=== PATIENT | male | born 1940 | race Caucasian/White ===

== ENCOUNTER 2016-11-12 08:19 | Day surgery (SDC) | payer MEDICARE ==
[~2016-11-12 08:19] MED LIST: Acetaminophen TAB* 325 MG PO PRN; Buffered Lidocaine 1% SYR 3ML* 3 ML/SYR SYRINGE INTRADERM ONE
[2016-11-12] MEDS ORDERED: Povidone Iodine 5% OPTH* 30 ML BTL ONE (09:24)
[2016-11-12] MEDS ORDERED: Flurbiprofen 0.03% OPTH.SOL* 2.5 ML BTL ONE (09:24)
[2016-11-12] MEDS ORDERED: acetaZOLAMIDE TAB* 250 MG ONE (09:24)
[2016-11-12] MEDS ORDERED: Proparacaine 0.5% OPHTH.SOL* 15 ML BTL ONE (09:24)
[2016-11-12] MEDS ORDERED: Neomycin/Polymy/Dex OPTH.SUSP* MAXITROL 0.1% 5 ML ONE (09:24)
[2016-11-12] MEDS ORDERED: Phenylephrine 2.5% OPTH.SOL* 2 ML BTL ONE (09:24)
[2016-11-12] MEDS ORDERED: Cyclopentolate 1% OPTH.SOL* 2 ML BTL ONE (09:24)
[2016-11-12] MEDS ORDERED: Lidocaine 1% MPF* 2 ML VIAL ONE (09:24)
[2016-11-12] MEDS ORDERED: Lidocaine 2% EPI 1:200000 MPF* 20 ML VIAL ONE (09:24)
[2016-11-12] MEDS ORDERED: Midazolam* 1 MG/ML 2 ML VIAL (2 MG) ONE ×2 (11:01→11:24)
[2016-11-12 11:50] VITALS: BP 129/62
--- NOTE | 2016-11-13 03:31 | OP ---
DATE OF OPERATION: 11/12/16 - [facility] DATE OF : 44 SURGEON: Hector Winter MD PREOPERATIVE DIAGNOSIS: Cataract, left eye. POSTOPERATIVE DIAGNOSIS: Cataract, left eye. OPERATIVE PROCEDURE: Phacoemulsification, left eye with IOL. DESCRIPTION OF PROCEDURE: The patient was brought to the operating room after being given 1/2% Alcaine with epinephrine drops in the preoperative area. The eye was prepped and draped in the usual sterile fashion. Sterile drape and eyelid speculum were placed. Again, topical 1/2% Alcaine with epinephrine was given. A paracentesis incision was made at the 3 o'clock position with the No.75 blade. Clear cornea incision 2.2 x 2.2-mm was created at the 6 o'clock position starting at the anterior limbus using the 2.2-mm keratome. The anterior chamber was irrigated with 0.4 mL of 1% non-preservative intracameral lidocaine and filled with DisCoVisc. A capsulorrhexis was completed using the cystotome and the Utrata forceps. Hydrodissection was performed with balanced salt solution. The lens nucleus was removed with the Phacoemulsification handpiece without incident. Cortex was removed with the irrigation-aspiration handpiece. The capsular bag was re-inflated using DisCoVisc and an SN60WF 23.5 implant was inserted with the shooter. Malyugin ring was used to dilate the pupil prior to capsulorrhexis and removed after insertion of the lens. Indication for complex cataract surgery iris abnormalities requiring pupil dilation device. The irrigation-aspiration handpiece was used to remove all residual DisCoVisc. The eye was refilled with balanced salt solution and the wound checked and found to be watertight. Topical Maxitrol drops were given. [id number]/[facility] #: [id number] [facility] CENTERMarizol
== END 2016-11-12 11:59 | disposition home or self-care (01) ==
LOC: OREAST 08:19
PROVIDERS: ATTEND Specialist
DX: H25.12 Age-related nuclear cataract, left eye (principal); Q13.2 Other congenital malformations of iris
CPT/HCPCS: A9270-GY; J2250; V2632

== ENCOUNTER 2016-11-19 07:41 | Day surgery (SDC) | payer MEDICARE ==
[~2016-11-19 07:41] MED LIST changes: +Cyclopentolate 1% OPTH.SOL* 2 ML BTL ONE; +Flurbiprofen 0.03% OPTH.SOL* 2.5 ML BTL ONE; +Lidocaine 1% MPF* 2 ML VIAL ONE; +Lidocaine 2% EPI 1:200000 MPF* 20 ML VIAL ONE; +Neomycin/Polymy/Dex OPTH.SUSP* MAXITROL 0.1% 5 ML ONE; +Phenylephrine 2.5% OPTH.SOL* 2 ML BTL ONE; +Povidone Iodine 5% OPTH* 30 ML BTL ONE; +Proparacaine 0.5% OPHTH.SOL* 15 ML BTL ONE; +acetaZOLAMIDE TAB* 250 MG ONE
[2016-11-19] MEDS ORDERED: Midazolam* 1 MG/ML 2 ML VIAL (2 MG) ONE (09:50)
[2016-11-19 10:46] VITALS: BP 120/64
--- NOTE | 2016-11-19 12:33 | OP ---
DATE OF OPERATION: 11/19/2016. DATE OF : 1940. SURGEON: Hector Winter M.D. PREOPERATIVE DIAGNOSIS: Cataract right eye. POSTOPERATIVE DIAGNOSIS: Cataract right eye. OPERATIVE PROCEDURE: Phacoemulsification right eye with IOL. PROCEDURE: The patient was brought to the operating room after being given 1/2% Alcaine with epinep hrine drops in the preoperative area. The eye was prepped and draped in the usual sterile fashion. Sterile drape and eyelid speculum were placed. Again, topical 1/2% Alcaine with epinephrine was gi norberto. A paracentesis incision was made at the 9 o'clock position with the No.75 blade. Clear cornea incision 2.2 x 2.2-mm was created at the 12 o'clock position starting at the anterior limbus using the 2.2-mm keratome. The anterior chamber was irrigated with 0.4 mL of 1% non-preservative intracam eral lidocaine and filled with DisCoVisc. A capsulorrhexis was completed using the cystotome and mirtha e Utrata forceps. Hydrodissection was performed with balanced salt solution. The lens nucleus was r emoved with the Phacoemulsification handpiece without incident. Cortex was removed with the irrigat ion-aspiration handpiece. The capsular bag was re-inflated using DisCoVisc and an SN60WF 23.5 Impla nt was inserted with the shooter. A Malyugin ring was used to dilate the pupil prior to capsulorrhe xis and removed after insertion of the lens. The irrigation-aspiration handpiece was used to remove all residual DisCoVisc. The eye was refilled with balanced salt solution and the wound checked and found to be watertight. Topical Maxitrol drops were given. Indication for complex cataract surgery: Iris abnormalities requiring pupil dilation device. [id number]/[facility] #: [id number]
== END 2016-11-19 10:42 | disposition home or self-care (01) ==
LOC: OREAST 07:41
PROVIDERS: ATTEND Specialist
DX: H25.11 Age-related nuclear cataract, right eye (principal); Q13.2 Other congenital malformations of iris; F17.290 Nicotine dependence, other tobacco product, uncomplicated; R56.9 Unspecified convulsions; I48.91 Unspecified atrial fibrillation
CPT/HCPCS: A9270-GY; J2250; V2632

== ENCOUNTER 2017-04-20 17:23 | Inpatient (IN) | payer MEDICARE ==
[2017-04-20] MEDS ORDERED: Cefepime(*) 2 GM in NS 0.9% 50 ML* 50 ML IVPB ONE (19:57)
[2017-04-20] MEDS ORDERED: metroNIDAZOLE IV 500 MG/100ML* 500 MG/100 ML BAG IVPB ONE (19:57)
[2017-04-20] MEDS ORDERED: NS 0.9% 1000 ML* 1,000 ML IV ONE (19:59)
[2017-04-20] MEDS ORDERED: Morphine INJ* 4 MG/ML 1 ML SYRINGE IV ONE (19:59)
[2017-04-20] MEDS ORDERED: Vancomycin(*) 1,000 MG VIAL IVPB SCH (20:00)
[2017-04-20] MEDS ORDERED: NS 0.9% 50 ML* 100 ML ONE (20:15)
[2017-04-20 20:51] LABS: Hematocrit 41 % (42-52); Hemoglobin 13.7 g/dl (14.0-18.0); Mean Corpuscular HGB Conc 33 g/dl (31-36); Mean Corpuscular Hemoglobin 31 pg (27-31); Mean Corpuscular Volume 92 fL (80-94); Mean Platelet Volume 7 um3 (7.4-10.4); Red Blood Count 4.47 10^6/ul (4.0-5.4); Red Cell Distribution Width 14 % (10.5-15); White Blood Count 12.3 10^3/ul (3.5-10.8)
[2017-04-20 20:58] LABS: Albumin 3.8 g/dL (3.2-5.2); BUN/Creatinine Ratio 29.6 (8-20); Calcium 9.1 mg/dL (8.6-10.3); EGFR African American 139.5 (>60); EGFR Non-African American 108.4 (>60); Globulin 3.2 g/dL (2-4); Total Bilirubin 0.3 mg/dL (0.2-1.0)
[2017-04-20] MEDS ORDERED: Vancomycin(*) 2,000 MG in NS 0.9% 500 ML BAG* 500 ML IVPB ONE (21:00)
[2017-04-20] MEDS ORDERED: NS 0.9% 500 ML BAG* 500 ML ONE (21:05)
--- NOTE | 2017-04-20 21:34 | RAD ---
HISTORY: Right lower extremity pain and edema TECHNIQUE: Multiple transverse and longitudinal ultrasound images were obtained of the veins of the right lower extremity using grayscale, color Doppler, and spectral Doppler imaging with and without compression and with augmentation. FINDINGS: VEINS: The common femoral vein, deep femoral vein, femoral vein and popliteal vein are compressible throughout their course, with normal flow on color Doppler imaging and normal response to augmentation on spectral Doppler imaging. The right peroneal vein could not be visualized. SOFT TISSUES: Subcutaneous edema is evident overlying the right calf. IMPRESSION: Subcutaneous edema overlying the right calf without femoral-popliteal deep vein thrombosis.
[2017-04-20] MEDS ORDERED: Ondansetron INJ* 2 MG/ML VIAL IV PRN (21:48)
[2017-04-20] MEDS ORDERED: Al Hydrox/Mg Hydrox/Simet LIQ* 30 ML UDC PO PRN (21:48)
[2017-04-20 22:00] LABS: Erythrocyte Sed Rate 26 mm/Hr (0-40)
[2017-04-20] MEDS ORDERED: Vancomycin(*) 0 MG in NS 0.9% 250 ML* 250 ML IVPB SCH (22:00)
[2017-04-20] MEDS ORDERED: Vancomycin per Pharmacy* NOTE FOLLOW UP SCH (22:00)
[2017-04-20] MEDS ORDERED: Iohexol 350* (CONTRAST) 500 ML MDV IV ONE (22:06)
[2017-04-20] MEDS: Morphine INJ* 2 MG/ML 1 ML SYRINGE IV PRN (23:03)
[2017-04-20] MEDS: Heparin VIAL(*) 5000 UNITS/ML VIAL (FIVE THOUSAND) SUBCUT SCH (23:07)
--- NOTE | 2017-04-20 23:17 | ED ---
Garcia Bowman,Lily, scribed for Edy Rutledge MD on 04/20/17 at 2002 . Lower Extremity - HPI Summary HPI Summary: This 76 y/o male presents to ED for acute on chronic swelling and burning/sharp pain of BLE since 2 weeks ago. Positive open wound with drainage. Pt states that his leg was dress with calcium alginate with silver, optilock, which irritated his leg skin and caused the open wound. He was prescribed levaquin. Pt is seen ambulating with cane. PMHx includes known blood clot at RLE, chronic leg swelling, left knee replacement, and fight femur fibrosarcoma s/p surgical repair. Pt is a wound clinic pt. Pt was silver Negative fever, chills, or leg weakness. - History of Current Complaint Chief Complaint: EDExtremityLower Stated Complaint: SENT FROM WOUND CENTER Time Seen by Provider: 04/20/17 19:42 Hx Obtained From: Patient, Medical Records Mechanism Of Injury: Unknown Pain Intensity: 9 Pain Scale Used: 0-10 Numeric Associated Signs And Symptoms: Positive: Swelling, Redness - Allergies/Home Medications Allergies/Adverse Reactions: Allergies Allergy/AdvReac Type Severity Reaction Status Date / Time No Known Allergies Allergy Verified 04/20/17 17:27 PMH/Surg Hx/FS Hx/Imm Hx Endocrine/Hematology History: Reports: Hx Anticoagulant Therapy, Hx Blood Transfusions Denies: Hx Diabetes, Hx Thyroid Disease, Hx Anemia, Hx Unexplained Bleeding Cardiovascular History: Denies: Hx Aneurysm, Hx Angina, Hx Angioplasty, Hx Auto Implanted Cardiovert Defib, Hx Cardiac Arrest, Hx Cardiomegaly, Hx Congenital Heart Disease, Hx Coronary Artery Disease, Hx Hypercholesterolemia, Hx Hypertension, Hx Myocardial Infarction, Hx Pacemaker/ICD, Hx Peripheral Vascular Disease, Hx Rheumatic Fever, Hx Syncope, Hx Valvular Heart Disease Respiratory History: Reports: Hx Pneumonia Denies: Hx Asthma, Hx Chronic Obstructive Pulmonary Disease (COPD), Hx Sleep Apnea GI History: Reports: Hx Diverticulosis - sigmoid, Hx Gastroesophageal Reflux Disease, Hx Hiatal Hernia, Other GI Disorders - duodenal ulcer, Baires's esophagus Denies: Hx Cirrhosis, Hx Crohn's Disease, Hx Gall Bladder Disease History: Reports: Other Problems/Disorders - prostate CA Denies: Hx Renal Disease Musculoskeletal History: Reports: Hx Arthritis, Hx Back Problems Denies: Hx Congenital Bone Abnormalities, Hx Fibromyalgia, Hx Gout, Hx Orthopedic Injury Sensory History: Reports: Hx Contacts or Glasses Denies: Hx Deafness, Hx Hearing Aid, Hx Hearing Problem, Other Sensory Impairments Opthamlomology History: Reports: Hx Contacts or Glasses Denies: Other Sensory Impairments Neurological History: Reports: Hx Seizures Denies: Hx Dementia, Hx Developmental Delay, Hx Headaches, Hx Migraine, Hx Spinal Cord Injury, Hx Transient Ischemic Attacks (TIA), Other Neuro Impairments /Disorders Psychiatric History: Denies: Hx Substance Abuse - Cancer History Cancer Type, 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 prostate CA Hx Chemotherapy: Yes - Surgical History Surgery Procedure, Year, and Place: LT KNEE REPLACEMENT 12/06/2012 HX OF BOTH HIPS REPAIR/RT FEMUR FIBROSARCOMA SURGERY, colonoscopy, right hydrocele, esophageal Hx Anesthesia Reactions: Yes - 2 x had reaction resulting in hiccups Infectious Disease History: No Infectious Disease History: Denies: Hx Hepatitis, Hx Human Immunodeficiency Virus (HIV), Hx Shingles, Hx Tuberculosis, Traveled Outside the [place] in Last 30 Days - Family History Known Family History: Positive: Other - Seizures Negative: Cardiac Disease - no FHx of CAD - Social History Alcohol Use: Rare Alcohol Amount: 1-2 beers Substance Use Type: Reports: None Smoking Status (MU): Current Some Day Smoker Amount Used/How Often: one cigar once a month Review of Systems Negative: Fever, Chills Negative: Sore Throat, Ear Ache Negative: Cough Positive: Edema - BLE, Other - BLE ankle pain All Other Systems Reviewed And Are Negative: Yes Physical Exam - Summary Physical Exam Summary: The patient is well-nourished in no acute distress and in no acute pain. HEENT: The head is normocephalic and atraumatic. The pupils are equal and reactive. The conjunctivae are clear and without drainage. Nares are patent and without drainage. Mouth reveals moist mucous membranes and the throat is without erythema and exudate. The external ears are intact. The ear canals are patent and without drainage. The tympanic membranes are intact. Neck is supple with full range of motion and non-tender. There are no carotid bruits. There is no neck vein distension. Respiratory: Chest is non-tender. Lungs are clear to auscultation and breath sounds are symmetrical and equal. Cardiovascular: Hear is regular rate and rhythm. There is no murmur or rub auscultated. There is no peripheral edema and pulses are symmetrical and equal. Abdomen: The abdomen is soft, obese, and non-tender. There are normal bowel sounds heard in all four quadrants and there is no organomegaly palpated. Musculoskeletal: Positive marked edema at bilat feet, right more notable than left. Positive open wound that is almost circumferential, covers major tibial calf area below knee. Positive serosanguinous drainage. Marked erythema. Good intact pulse DP. Neurological: Patient is alert and oriented to person, place and time. The patient has symmetrical motor strength in all four extremities. Cranial nerves are grossly intact. Deep tendon reflexes are symmetrical and equal in all four extremities. No foot drop Psychiatric: The patient has an appropriate affect and does not exhibit any anxiety or depression. Triage Information Reviewed: Yes Vital Signs On Initial Exam: Initial Vitals Temp Pulse Resp BP Pulse Ox 97 F 93 16 141/65 96 04/20/17 17:27 04/20/17 17:27 04/20/17 17:27 04/20/17 17:27 04/20/17 17:27 Vital Signs Reviewed: Yes Diagnostics - Vital Signs Vital Signs Temp Pulse Resp BP Pulse Ox 04/20/17 18:38 98 F 93 16 145/65 98 04/20/17 17:27 97 F 93 16 141/65 96 - Laboratory Lab Results: Lab Results 04/20/17 04/20/17 04/20/17 Range/Units 20:30 20:30 20:30 WBC 12.3 H (3.5-10.8) 10^3/ul RBC 4.47 (4.0-5.4) 10^6/ul Hgb 13.7 L (14.0-18.0) g/dl Hct 41 L (42-52) % MCV 92 (80-94) fL MCH 31 (27-31) pg MCHC 33 (31-36) g/dl RDW 14 (10.5-15) % Plt Count 273 (150-450) 10^3/ul MPV 7 L (7.4-10.4) um3 Neut % (Auto) 70.2 (38-83) % Lymph % (Auto) 17.6 L (25-47) % Sebastian % (Auto) 10.2 H (1-9) % Eos % (Auto) 1.4 (0-6) % Baso % (Auto) 0.6 (0-2) % Absolute Neuts (auto) 8.6 H (1.5-7.7) 10^3/ul Absolute Lymphs (auto) 2.2 (1.0-4.8) 10^3/ul Absolute Monos (auto) 1.2 H (0-0.8) 10^3/ul Absolute Eos (auto) 0.2 (0-0.6) 10^3/ul Absolute Basos (auto) 0.1 (0-0.2) 10^3/ul Absolute Nucleated RBC 0.01 10^3/ul Nucleated RBC % 0.1 ESR 26 (0-40) mm/Hr INR (Anticoag Therapy) 0.94 (0.89-1.11) Sodium 134 (133-145) mmol/L Potassium 4.0 (3.5-5.0) mmol/L Chloride 102 (101-111) mmol/L Carbon Dioxide 24 (22-32) mmol/L Anion Gap 8 (2-11) mmol/L BUN 21 (6-24) mg/dL Creatinine 0.71 (0.67-1.17) mg/dL Est GFR ( Amer) 139.5 (>60) Est GFR (Non-Af Amer) 108.4 (>60) BUN/Creatinine Ratio 29.6 H (8-20) Glucose 99 (70-100) mg/dL Lactic Acid (0.5-2.0) mmol/L Calcium 9.1 (8.6-10.3) mg/dL Total Bilirubin 0.30 (0.2-1.0) mg/dL AST 14 (13-39) U/L ALT 10 (7-52) U/L Alkaline Phosphatase 159 H (34-104) U/L Total Creatine Kinase 104 (10-223) U/L Total Protein 7.0 (6.4-8.9) g/dL Albumin 3.8 (3.2-5.2) g/dL Globulin 3.2 (2-4) g/dL Albumin/Globulin Ratio 1.2 (1-3) 04/20/17 Range/Units 20:30 WBC (3.5-10.8) 10^3/ul RBC (4.0-5.4) 10^6/ul Hgb (14.0-18.0) g/dl Hct (42-52) % MCV (80-94) fL MCH (27-31) pg MCHC (31-36) g/dl RDW (10.5-15) % Plt Count (150-450) 10^3/ul MPV (7.4-10.4) um3 Neut % (Auto) (38-83) % Lymph % (Auto) (25-47) % Sebastian % (Auto) (1-9) % Eos % (Auto) (0-6) % Baso % (Auto) (0-2) % Absolute Neuts (auto) (1.5-7.7) 10^3/ul Absolute Lymphs (auto) (1.0-4.8) 10^3/ul Absolute Monos (auto) (0-0.8) 10^3/ul Absolute Eos (auto) (0-0.6) 10^3/ul Absolute Basos (auto) (0-0.2) 10^3/ul Absolute Nucleated RBC 10^3/ul Nucleated RBC % ESR (0-40) mm/Hr INR (Anticoag Therapy) (0.89-1.11) Sodium (133-145) mmol/L Potassium (3.5-5.0) mmol/L Chloride (101-111) mmol/L Carbon Dioxide (22-32) mmol/L Anion Gap (2-11) mmol/L BUN (6-24) mg/dL Creatinine (0.67-1.17) mg/dL Est GFR ( Amer) (>60) Est GFR (Non-Af Amer) (>60) BUN/Creatinine Ratio (8-20) Glucose (70-100) mg/dL Lactic Acid 0.7 (0.5-2.0) mmol/L Calcium (8.6-10.3) mg/dL Total Bilirubin (0.2-1.0) mg/dL AST (13-39) U/L ALT (7-52) U/L Alkaline Phosphatase (34-104) U/L Total Creatine Kinase (10-223) U/L Total Protein (6.4-8.9) g/dL Albumin (3.2-5.2) g/dL Globulin (2-4) g/dL Albumin/Globulin Ratio (1-3) Result Diagrams: 04/20/17 20:30 04/20/17 20:30 Lab Statement: Any lab studies that have been ordered have been reviewed, and results considered in the medical decision making process. - Additional Comments Diagnostic Additional Comments: Venous Doppler Study -- Subcutaneous edema overlying the right calf without femoral-popliteal deep vein thrombosis. Lower Extremity Course/Dx - Course Assessment/Plan: This 76 y/o male presents to ED for persistent BLE swelling and pain since 2 weeks ago. Pt is a wound clinic patient, and states that calcium alginate with silver, optilock dressing he was given irritated his leg skin. Positive open wound with serosanguinous drainage. Pt is given morphine injection for pain control. Plan of care is discussd with Dr. León, hospitalist event specialist food demonstrator, who is agreeable to pt's admission. - Diagnoses Differential Diagnosis/HQI/PQRI: Positive: Cellulitis, DVT, Infection, Other - abscess, Provider Diagnoses: Cellulitis, Infected stasis ulcer of right lower extremity Provider Diagnoses: (Ruled Out): Cellulitis and abscess of right leg - Physician Notifications Discussed Care Of Patient With: Lakesha León Time Discussed With Above Provider: 20:29 Instructed by Provider To: Admit As Inpatient Discharge - Discharge Plan Condition: Stable Disposition: ADMITTED TO [facility] The documentation as recorded by the Garcia ibrahim Soohyun accurately reflects the service I personally performed and the decisions made by me, Edy Rutledeg MD.
[2017-04-20] MEDS: oxyCODONE/Acetamin 5/325 MG* TAB PO PRN (23:28)
[2017-04-20] MEDS: Docusate CAP* 100 MG PO PRN (23:28)
--- NOTE | 2017-04-21 00:04 | HP ---
CC: Gamal Mcdonald MD * HISTORY AND PHYSICAL: DATE OF ADMISSION: 04/20/17 TIME OF EVALUATION: 2200. PRIMARY CARE PHYSICIAN: Gamal Mcdonald MD. CHIEF COMPLAINT: Right lower extremity pain, redness and swelling. HISTORY OF PRESENT ILLNESS: This is a 76-year-old male with a past medical history of chronic lymphedema with chronic wounds followed at the wound care center, who was told by the wound care center to go to the emergency room for worsening wound redness and swelling. The patient states he began having difficulty with his right lower extremity; however, on the end of March he was started initially on doxycycline he believes, although he is not clear. He started that twice a day. His symptoms did not improve. I have a note when he returned back to wound care on the and at that time they switched him over to p.o. Levaquin with wound care regimen. The patient states he has been having difficulty with the topical ointments as they give him lot of pain. He has a significant more amount of pain, redness and swelling over his right lower leg and the posterior surface and the medial surface. He has also been unable to elevate his legs. It is too painful to elevate them and his recliner also broke. He denies any fevers. He has had a good appetite. No nausea, vomiting diarrhea. No abdominal pain, no chest pain, no shortness of breath. Otherwise, remainder of review of systems negative. The patient had labs and imaging. He was given a liter of fluid, metronidazole , cefepime and vancomycin and referred to the hospitalist service for further evaluation. PAST MEDICAL HISTORY: 1. 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 2. History of seizure disorder. 3. History of prostate cancer. 4. History of hip and knee arthroplasties. 5. History of cardiac surgery. 6. History of cellulitis admission in May 2016. 7. Venous hypertension. 8. History of paroxysmal atrial fibrillation, not on anticoagulation. 9. History of chronic lower extremity wounds, followed at the Wound Care Center. 10. Status post hydrocele removal. MEDICATIONS: 1. Dilantin 500 mg q.a.m. 2. Lasix 40 mg q.a.m. 3. Aleve as needed. 4. Aspirin 325 mg in the morning. ALLERGIES: No known drug allergies. FAMILY HISTORY: Reviewed and noncontributory. SOCIAL HISTORY: The patient lives alone. He just recently lost his partner back in February 2017 who was residing at [facility]. His healthcare proxy is the son, Hector Tucker. He does smoke cigars intermittently and occasional alcohol use. No illicit drug use. CODE STATUS: Full code. REVIEW OF SYSTEMS: A 14-point review of systems with the positives and pertinent negatives as mentioned in the HPI, otherwise negative. PHYSICAL EXAMINATION GENERAL: In no acute distress, resting comfortably. VITAL SIGNS: Temp 98, pulse rate 93, respiratory rate 16, oxygen saturation 98 % on room air, blood pressure 145/65. HEENT: Head normocephalic. Pupils are equal and reactive, anicteric. Oropharynx: Mucous membranes are moist. No erythema or exudate. NECK: Supple. No lymphadenopathy. RESPIRATORY: Diminished breath sounds. No wheezes, rhonchi or rales. CARDIAC: Regular rate and rhythm. No murmurs, rubs or gallops. ABDOMEN: Soft, morbidly obese. Nontender. EXTREMITIES: The patient with bilateral lower extremity edema, worse on the right. He has an ulcerated open wound on the posterior surface of his right lower extremity and a more granulated ulcerated lesion on the medial surface of his right lower extremity. Significant amount of redness and swelling. Both extremities are firm. Unable to appreciate any pulses. Pain with palpation. NEUROLOGIC: Alert and oriented x3. No focal neurologic deficits. LABORATORY DATA/DIAGNOSTIC STUDIES: White count 12.3, hemoglobin 13.7, hematocrit 41, platelets 273,000. Sed rate 26. Sodium 134, potassium 4, chloride 102, bicarb 24, BUN 21, creatinine 0.71. Radiographic data: Subcutaneous edema overlying the right calf without femoral popliteal deep vein thrombosis. The patient recently had an extremity arterial study on 04/17/17 that showed no definitive findings suggestive of arterial insufficiency, although the TED is especially elevated and measured at the right calf and right posterior tibial artery, especially advanced calcified atherosclerosis. Consider a CTA or aorta with runoff. ASSESSMENT: This is a 76-year-old male with a past medical history of chronic lymphedema, chronic wounds who presented to the emergency room from wound care for worsening redness, swelling and ulcerations on his right lower extremity despite being on p.o. antibiotics. PROBLEMS: 1. Cellulitis. Assessment: The patient on 3 days of p.o. Levaquin. His culture back on the 4th showed pseudomonas, sensitive to Levaquin. I suspect part of his issue with poor wound healing is noncompliance with the topical agents and not being able to elevate his legs. There also could be some arterial insufficiency as noted on his TED from the 4th. Our plan, we will will admit him to [address] [place] [address]. We will continue on cefepime, Flagyl and vancomycin, put in an ID consult for further antibiotic management. We will consult wound care. We will continue his regimen, keeping the legs elevated, calcium alginate with silver to cover the weepy areas, OptiLock roll to conforming gauze, mild compression wraps to both legs and continue with pain control. 2. Chronic medical problem, seizure disorder, continue his Dilantin. 3. Chronic lymphedema, continue his Lasix. 4. Diet, continue him on a regular diet. 5. DVT prophylaxis, the patient scores high risk. We have placed him on heparin subcu t.i.d. 6. Code status: Full code. TIME SPENT: Greater than 70 minutes was spent doing the history and physical, more than half the time was spent in direct patient contact. [id number]/[facility] #: [id number] SAMRA
[2017-04-21] MEDS: Morphine INJ* 2 MG/ML 1 ML SYRINGE IV PRN ×4 (03:17→19:45)
[2017-04-21] MEDS: oxyCODONE/Acetamin 5/325 MG* TAB PO PRN ×3 (05:14→21:04)
[2017-04-21] MEDS: Heparin VIAL(*) 5000 UNITS/ML VIAL (FIVE THOUSAND) SUBCUT SCH ×3 (05:57→21:27)
[2017-04-21] MEDS: Vancomycin(*) 1,250 MG in NS 0.9% 250 ML* 250 ML IVPB SCH ×2 (05:58→14:27)
[2017-04-21] MEDS ORDERED: Iohexol 350* (CONTRAST) 500 ML MDV IV SCH (07:43)
[2017-04-21] MEDS: Aspirin TAB* 325 MG PO SCH (08:08)
[2017-04-21] MEDS: Phenytoin CAP(*) 100 MG CAP.ER PO SCH (08:08)
[2017-04-21] MEDS: Furosemide TAB* 40 MG PO SCH (08:08)
--- NOTE | 2017-04-21 08:23 | PN ---
Subjective Date of Service: 04/21/17 Interval History: Mr. Elizabeth is a 76 yo gentleman who presented to the wound clinic on 04/20 for evaluation of his chronic wounds and was referred to the ED with concern for worsening wound redness and swelling. The patient reports that he has been having difficulty with his RLE and was started on levofloxacin (per pt and records). Mr. Elizabeth reports he recently was changed to the calcium alginate with silver for his wound dressings, which was sent to him in the mail, but he has not been using it because it causes "burning. He states that he has been sitting a lot in the past few months, as [facility] . He has difficulty elevating his legs at home. Currently, he denies fever/chills, CP, SOB, abd pain. Reports his legs are starting to feel somewhat better after being on antibiotics. Patient is currently refusing any dressings to his legs until wound care sees him. Family History: Unchanged from Admission Social History: Unchanged from Admission Past Medical History: Unchanged from Admission Objective Active Medications: Acetaminophen (Tylenol Tab*) 650 mg PO Q4H PRN PRN Reason: FEVER/PAIN Al Hydrox/Mg Hydrox/Simethicone (Maalox Plus*) 30 ml PO Q6H PRN PRN Reason: INDIGESTION Aspirin (Aspirin Tab*) 325 mg PO DAILY [facility] Last Admin: 04/21/17 08:08 Dose: 325 mg Docusate Sodium (Colace Cap*) 100 mg PO BID PRN PRN Reason: CONSTIPATION Last Admin: 04/20/17 23:28 Dose: 100 mg Furosemide (Lasix Tab*) 40 mg PO DAILY [facility] Last Admin: 04/21/17 08:08 Dose: 40 mg Heparin Sodium (Porcine) (Heparin Vial(*)) 5,000 units SUBCUT Q8HR [facility] Last Admin: 04/21/17 05:57 Dose: 5,000 units Cefepime HCl 2 gm/ Sodium (Chloride) 50 mls @ 100 mls/hr IVPB Q12H [facility] Metronidazole/Sodium Chloride (Flagyl 500 Mg Ivpb*) 500 mg in 100 mls @ 100 mls /hr IVPB Q12HR [facility] Vancomycin HCl 1,250 mg/ (Sodium Chloride) 250 mls @ 166.667 mls/hr IVPB Q8H [facility] Last Admin: 04/21/17 05:58 Dose: 166.667 mls/hr Iohexol (Omnipaque 350 (Contrast)-) 125 ml IV ONCE [facility] Stop: 04/23/17 07:42 Morphine Sulfate (Morphine Inj (Syringe)*) 2 mg IV Q4H PRN PRN Reason: PAIN Last Admin: 04/21/17 03:17 Dose: 2 mg Ondansetron HCl (Zofran Inj*) 4 mg IV Q4H PRN PRN Reason: NAUSEA/VOMITING Oxycodone/Acetaminophen (Percocet 5/325 Tab*) 1 tab PO Q4H PRN PRN Reason: Pain Last Admin: 04/21/17 05:14 Dose: 1 tab Pharmacy Consult (Vancomycin Per Pharmacy*) 1 note FOLLOW UP .VANC PER PHARMACY [facility] Pharmacy Profile Note (Vancomycin Trough Check) 1 note FOLLOW UP ONCE ONE Stop: 04/22/17 06:01 Phenytoin Sodium (Dilantin Cap(*)) 500 mg PO DAILY [facility] Last Admin: 04/21/17 08:08 Dose: 500 mg Senna (Senokot Tab*) 1 tab PO BID PRN PRN Reason: CONSTIPATION Vital Signs 04/20/17 04/20/17 04/20/17 22:45 23:03 23:05 Temperature 98.0 F 98.0 F Pulse Rate 88 88 Respiratory 18 19 18 Rate Blood Pressure 130/68 130/68 (mmHg) O2 Sat by Pulse 99 99 Oximetry 04/20/17 04/21/17 04/21/17 23:28 00:03 01:28 Temperature Pulse Rate Respiratory 18 18 17 Rate Blood Pressure (mmHg) O2 Sat by Pulse Oximetry 04/21/17 04/21/17 04/21/17 03:17 03:32 04:17 Temperature 97.7 F Pulse Rate 80 Respiratory 18 16 22 Rate Blood Pressure 113/64 (mmHg) O2 Sat by Pulse 98 Oximetry 04/21/17 04/21/17 04/21/17 05:14 07:14 07:32 Temperature 97.9 F Pulse Rate 73 Respiratory 22 18 18 Rate Blood Pressure 126/59 (mmHg) O2 Sat by Pulse 98 Oximetry Oxygen Devices in Use Now: None Appearance: Male patient, OOB to chair, NAD Eyes: No Scleral Icterus Ears/Nose/Mouth/Throat: Clear Oropharnyx, Mucous Membranes Moist Neck: NL Appearance and Movements; NL JVP Respiratory: Symmetrical Chest Expansion and Respiratory Effort, Clear to Auscultation Cardiovascular: NL Sounds; No Murmurs; No JVD, RRR Abdominal: NL Sounds; No Tenderness; No Distention Extremities: - - BLE edema R>L with ulcerations and open wounds to posterior and medial aspects of the RLE Neurological: Alert and Oriented x 3, NL Muscle Strength and Tone Lines/Tubes/Other Access: Clean, Dry and Intact Peripheral IV Nutrition: Taking PO's Result Diagrams: 04/20/17 20:30 04/20/17 20:30 Additional Lab and Data: Lab Results 04/20/17 04/20/17 04/20/17 Range/Units 20:30 20:30 20:30 WBC 12.3 H (3.5-10.8) 10^3/ul RBC 4.47 (4.0-5.4) 10^6/ul Hgb 13.7 L (14.0-18.0) g/dl Hct 41 L (42-52) % MCV 92 (80-94) fL MCH 31 (27-31) pg MCHC 33 (31-36) g/dl RDW 14 (10.5-15) % Plt Count 273 (150-450) 10^3/ul MPV 7 L (7.4-10.4) um3 Neut % (Auto) 70.2 (38-83) % Lymph % (Auto) 17.6 L (25-47) % Graham % (Auto) 10.2 H (1-9) % Eos % (Auto) 1.4 (0-6) % Baso % (Auto) 0.6 (0-2) % Absolute Neuts (auto) 8.6 H (1.5-7.7) 10^3/ul Absolute Lymphs (auto) 2.2 (1.0-4.8) 10^3/ul Absolute Monos (auto) 1.2 H (0-0.8) 10^3/ul Absolute Eos (auto) 0.2 (0-0.6) 10^3/ul Absolute Basos (auto) 0.1 (0-0.2) 10^3/ul Absolute Nucleated RBC 0.01 10^3/ul Nucleated RBC % 0.1 ESR 26 (0-40) mm/Hr INR (Anticoag Therapy) 0.94 (0.89-1.11) Sodium 134 (133-145) mmol/L Potassium 4.0 (3.5-5.0) mmol/L Chloride 102 (101-111) mmol/L Carbon Dioxide 24 (22-32) mmol/L Anion Gap 8 (2-11) mmol/L BUN 21 (6-24) mg/dL Creatinine 0.71 (0.67-1.17) mg/dL Est GFR ( Amer) 139.5 (>60) Est GFR (Non-Af Amer) 108.4 (>60) BUN/Creatinine Ratio 29.6 H (8-20) Glucose 99 (70-100) mg/dL Lactic Acid (0.5-2.0) mmol/L Calcium 9.1 (8.6-10.3) mg/dL Total Bilirubin 0.30 (0.2-1.0) mg/dL AST 14 (13-39) U/L ALT 10 (7-52) U/L Alkaline Phosphatase 159 H (34-104) U/L Total Creatine Kinase 104 (10-223) U/L Total Protein 7.0 (6.4-8.9) g/dL Albumin 3.8 (3.2-5.2) g/dL Globulin 3.2 (2-4) g/dL Albumin/Globulin Ratio 1.2 (1-3) /03/30 Range/Units 20:30 WBC (3.5-10.8) 10^3/ul RBC (4.0-5.4) 10^6/ul Hgb (14.0-18.0) g/dl Hct (42-52) % MCV (80-94) fL MCH (27-31) pg MCHC (31-36) g/dl RDW (10.5-15) % Plt Count (150-450) 10^3/ul MPV (7.4-10.4) um3 Neut % (Auto) (38-83) % Lymph % (Auto) (25-47) % Graham % (Auto) (1-9) % Eos % (Auto) (0-6) % Baso % (Auto) (0-2) % Absolute Neuts (auto) (1.5-7.7) 10^3/ul Absolute Lymphs (auto) (1.0-4.8) 10^3/ul Absolute Monos (auto) (0-0.8) 10^3/ul Absolute Eos (auto) (0-0.6) 10^3/ul Absolute Basos (auto) (0-0.2) 10^3/ul Absolute Nucleated RBC 10^3/ul Nucleated RBC % ESR (0-40) mm/Hr INR (Anticoag Therapy) (0.89-1.11) Sodium (133-145) mmol/L Potassium (3.5-5.0) mmol/L Chloride (101-111) mmol/L Carbon Dioxide (22-32) mmol/L Anion Gap (2-11) mmol/L BUN (6-24) mg/dL Creatinine (0.67-1.17) mg/dL Est GFR ( Amer) (>60) Est GFR (Non-Af Amer) (>60) BUN/Creatinine Ratio (8-20) Glucose (70-100) mg/dL Lactic Acid 0.7 (0.5-2.0) mmol/L Calcium (8.6-10.3) mg/dL Total Bilirubin (0.2-1.0) mg/dL AST (13-39) U/L ALT (7-52) U/L Alkaline Phosphatase (34-104) U/L Total Creatine Kinase (10-223) U/L Total Protein (6.4-8.9) g/dL Albumin (3.2-5.2) g/dL Globulin (2-4) g/dL Albumin/Globulin Ratio (1-3) Diagnostic Imaging: CTA Abd/Aorta and Runoff: IMPRESSION: NO CT EVIDENCE OF SIGNIFICANT CALCIFIED PLAQUE OR HEMODYNAMICALLY SIGNIFICANT STENOSIS. DIFFUSE EDEMATOUS CHANGES IN LOWER EXTREMITIES SUGGEST VENOUS INSUFFICIENCY. Venous Doppler RLE: IMPRESSION: Subcutaneous edema overlying the right calf without femoral-popliteal deep vein thrombosis. Assess/Plan/Problems-Billing Assessment: Mr. Elizabeth is a 76 yo male with a PMH significant for chronic lymphedema ( secondary to excision of fibrosarcoma), chronic wounds, HTN, seizure disorder, and PAF who presented to the emergency room from wound care on 04/20/17 for worsening redness, swelling and ulcerations on his right lower extremity, despite being on p.o. antibiotics. - Patient Problems (1) Cellulitis of right leg Code(s): L03.115 - CELLULITIS OF RIGHT LOWER LIMB Comment: With worsening erythema, edema, and ulcerations Patient has been on PO levofloxacin as an outpatient and follows with wound clinic Wound cx from 04/17 grew pseudomonas, sensitive to levofloxacin. Continue cefepime, metronidazole, vancomycin. Appreciate ID and wound care consults Continue current dressing changes with calcium alginate with silver and compression wraps. Suspect poor wound healing secondary to treatment nonadherence with topical agents and inability to keep BLE elevated CTA with runoff pending (2) Atrial fibrillation Code(s): I48.91 - UNSPECIFIED ATRIAL FIBRILLATION Comment: Currently in SR Paroxysmal afib Not on anticoagulation (3) Seizure disorder Code(s): G40.909 - EPILEPSY, UNSP, NOT INTRACTABLE, WITHOUT STATUS EPILEPTICUS Comment: Continue phenytoin. 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 Anticipate LOS>2 days. Plan for dc to home when medically stable.
[2017-04-21] MEDS ORDERED: metroNIDAZOLE IV 500 MG/100ML* 500 MG/100 ML BAG IVPB SCH (09:00)
--- NOTE | 2017-04-21 09:20 | RAD ---
INDICATION: Evaluate for peripheral vascular disease. Evaluate for calcified vessels. Probable venous insufficiency on the basis of noninvasive testing. COMPARISON: Noninvasive examination April 17, 2017; CT abdomen pelvis September 30, 2011. There are multiple calcified gallstones. CT April 22, 2006 TECHNIQUE: Axial source images were acquired utilizing CT angiographic technique with injection of 125 mL Omnipaque 350. Coronal and sagittal reconstructed images were acquired. 3-D volume rendered images were obtained. FINDINGS: Aorta: The diameter of the abdominal aorta from the diaphragmatic hiatus through the aortic bifurcation is normal. There is no evidence of aneurysm. There are no findings of dissection. There is no significant atherosclerotic plaque formation. Visceral branches: There are single renal arteries bilaterally which appear widely patent. The celiac axis, superior mesenteric artery, and inferior mesenteric artery are widely patent. Iliac arteries: The common and external iliac arteries are widely patent bilaterally. There is no significant calcific plaque. Right lower extremity: The profunda femoris artery, common femoral artery, superficial femoral artery, popliteal artery, and trifurcation vessels are widely patent with three-vessel runoff to the right foot. There is no significant calcific plaque. There is mildly limited evaluation of short segments of the common femoral artery and the popliteal artery due to the presence of hip and knee prostheses. Left lower extremity: The profunda femoris artery, common femoral artery, superficial femoral artery, popliteal artery, and trifurcation vessels are widely patent with three-vessel runoff to the left foot. There is no significant calcific plaque. There is mild limited evaluation of short segments of the common femoral and up to artery due to the presence of hip and knee prostheses. Other: Source images show a low-density left hepatic lesion, likely a cyst, unchanged. There are left-sided parapelvic cysts, unchanged. There is a fat-containing periumbilical hernia, unchanged. There are extensive diverticula of the sigmoid colon. There is bilateral hip and bilateral knee arthroplasty. There is a large amount of dependent edema below the level of knee suggesting venous insufficiency, less likely diffuse bilateral stenotic process. IMPRESSION: NO CT EVIDENCE OF SIGNIFICANT CALCIFIED PLAQUE OR HEMODYNAMICALLY SIGNIFICANT STENOSIS. DIFFUSE EDEMATOUS CHANGES IN LOWER EXTREMITIES SUGGEST VENOUS INSUFFICIENCY.
[2017-04-21] MEDS ORDERED: Cefepime(*) 2 GM in NS 0.9% 50 ML* 50 ML IVPB SCH (10:00)
[2017-04-21] MEDS ORDERED: Furosemide IV* 10 MG/ML 2 ML VIAL (20 MG) IV SLOW PU ONE (15:07)
[2017-04-21] MEDS: ceFAZolin 2 GM PREMIX (*) 100 ML IVPB SCH ×2 (17:39→23:52)
--- NOTE | 2017-04-21 20:37 | CONS ---
CONSULTATION REPORT: DATE OF CONSULTATION: 04/21/17 REQUESTING PHYSICIAN: Dr. León. CONSULTING SERVICE: Infectious Disease. REASON FOR CONSULTATION: Right lower extremity cellulitis. IMPRESSION: 1. Bilateral venous insufficiency with bilateral venous stasis ulceration which right now is pretty superficial complicated by right lower extremity cellulitis, which is usually Streptococcal. A culture taken on 04/13/17 grew group C strep and Pseudomonas. I think Pseudomonas more likely colonization in this case. 2. Morbid obesity. 3. Right lower extremity sarcoma excision in 1964. 4. Bilateral hip and knee arthroplasties. RECOMMENDATIONS: Change vancomycin, cefepime, Flagyl to Ancef 2 g every 8 hours. We will follow his leg wounds. Encouraged elevation of his legs. He cannot use the compression devices at this time because of the infection, but will try mild compression from an Jermain bandage. HISTORY OF PRESENT ILLNESS: This is a 76-year-old male with chronic lower extremity lymphedema admitted with right lower extremity pain. It has been there about 2 weeks. He is followed at the wound clinic and had some topical therapy. He has used compression devices in the past for lymphedema and has not been able to use them recently because of the infection. Pain, redness, and swelling in the right leg has progressed to the point that it was unbearable, so he came to the ER yesterday. White count 12,000. Started on vancomycin, cefepime and Flagyl, which he is tolerating well. The swelling, redness and pain are a little bit better today. He is using morphine for pain, which seemed to help as well. Blood cultures were sent and are pending. He has been afebrile here. He has not had a wound infection like this in the past. PAST MEDICAL HISTORY: 1. Morbid obesity. 2. Bilateral lower extremity lymphedema, uses a pump. 3. Fibrosarcoma, right lower extremity, status post excision in 1964. 4. Seizure disorder. 5. Prostate cancer. 6. Status post bilateral hip and knee arthroplasties. 7. Atrial fibrillation. 8. Status post hydrocele removal. MEDICATIONS: 1. Tylenol. 2. Aspirin. 3. Cefepime 2 g IV every 12 hours. 4. Furosemide. 5. Heparin subcutaneous injection. 6. Phenytoin. 7. Senna. 8. Vancomycin. 9. Flagyl 500 mg IV every 12 hours. ALLERGIES: No known drug allergies. FAMILY HISTORY: No recurrent infections. SOCIAL HISTORY: Lives in [place]. No travel or sick contacts. REVIEW OF SYSTEMS: All negative for full review of systems except as noted above. PHYSICAL EXAM: Vital Signs: Temperature 36.5, heart rate 80, respiratory rate 18, blood pressure 120/50, O2 sat 98% on room air. In general, he is awake, not in distress. HEENT: There is no conjunctival hemorrhage. Oropharynx without lesions. Neurologic: He is oriented x3. Follows all commands. Neck is supple without nuchal rigidity. Heart is regular rate and rhythm without murmurs, rubs, or gallops. Lungs are clear to auscultation bilaterally. Abdomen is soft, nontender, and nondistended. There are bowel sounds present. Lymph Nodes: There is no palpable inguinal lymphadenopathy. Skin: The right lower extremity, there is superficial diffuse ulceration above the ankle, below the knee with surrounding mild erythema and serous drainage. There is no fluctuance or crepitus. LABORATORY DATA: White blood cell count 12, hemoglobin 13, platelets 273,000. Creatinine is 0.7. Please see impressions and recommendations outlined above. Thank you for asking me to see Mr. Elizabeth in consultation. [id number]/[facility] #: [id number] SAMRA
[2017-04-21] MEDS: Morphine INJ* 4 MG/ML 1 ML SYRINGE IV PRN (21:24)
[2017-04-21] MEDS: Docusate CAP* 100 MG PO PRN (21:30)
[2017-04-21] MEDS: Senna TAB PO PRN (21:30)
[2017-04-22] MEDS: LIDOCAINE 4% TOPICAL PRN ×3 (04:14→20:59)
[2017-04-22] MEDS: Morphine INJ* 4 MG/ML 1 ML SYRINGE IV PRN ×4 (04:15→20:52)
[2017-04-22 05:59] LABS: Vancomycin Trough 9.8 mcg/mL
[2017-04-22] MEDS: Heparin VIAL(*) 5000 UNITS/ML VIAL (FIVE THOUSAND) SUBCUT SCH ×3 (05:59→20:52)
[2017-04-22 06:00] LABS: Hematocrit 39 % (42-52); Hemoglobin 13.2 g/dl (14.0-18.0); Mean Corpuscular HGB Conc 34 g/dl (31-36); Mean Corpuscular Hemoglobin 32 pg (27-31); Mean Corpuscular Volume 94 fL (80-94); Mean Platelet Volume 9 um3 (7.4-10.4); Red Blood Count 4.18 10^6/ul (4.0-5.4); Red Cell Distribution Width 14 % (10.5-15); White Blood Count 10.6 10^3/ul (3.5-10.8)
[2017-04-22] MEDS ORDERED: Vancomycin Trough Check NOTE FOLLOW UP ONE (06:00)
[2017-04-22 06:06] LABS: Add Diff/Slide Review? Slide Review Added; Comments Flag Yes
[2017-04-22 06:19] LABS: BUN/Creatinine Ratio 23.9 (8-20); C Reactive Protein 85.05 mg/L (< 5.00); Calcium 8.9 mg/dL (8.6-10.3); EGFR African American 139.5 (>60); EGFR Non-African American 108.4 (>60); Potassium 4.4 mmol/L (3.5-5.0)
[2017-04-22] MEDS: Phenytoin CAP(*) 100 MG CAP.ER PO SCH (07:45)
[2017-04-22] MEDS: Aspirin TAB* 325 MG PO SCH (07:45)
[2017-04-22] MEDS: ceFAZolin 2 GM PREMIX (*) 100 ML IVPB SCH ×2 (07:45→18:22)
[2017-04-22] MEDS: Furosemide TAB* 40 MG PO SCH (07:45)
[2017-04-22] MEDS ORDERED: Furosemide IV* 10 MG/ML 2 ML VIAL (20 MG) IV SLOW PU ONE (09:56)
--- NOTE | 2017-04-22 10:05 | PN ---
Subjective Date of Service: 04/22/17 Interval History: Patient seen and examined at bedside. He reports improvement to redness in his legs, though still endorses significant pain and weeping. Overall, they feel better. Patient has been refusing to elevate legs or use bed/recliner due to the significant amount of pain that is caused with contact to the posterior aspect of his RLE. He states once it heals more, he will resume elevation. He has declined the dressings with silver, as it causes significant discomfort to his wounds. Denies CP, SOB, n/v, fever/chills. Family History: Unchanged from Admission Social History: Unchanged from Admission Past Medical History: Unchanged from Admission Objective Active Medications: Acetaminophen (Tylenol Tab*) 650 mg PO Q4H PRN PRN Reason: FEVER/PAIN Al Hydrox/Mg Hydrox/Simethicone (Maalox Plus*) 30 ml PO Q6H PRN PRN Reason: INDIGESTION Aspirin (Aspirin Tab*) 325 mg PO DAILY [facility] Last Admin: 04/22/17 07:45 Dose: 325 mg Docusate Sodium (Colace Cap*) 100 mg PO BID PRN PRN Reason: CONSTIPATION Last Admin: 04/21/17 21:30 Dose: 100 mg Furosemide (Lasix Tab*) 40 mg PO DAILY [facility] Last Admin: 04/22/17 07:45 Dose: 40 mg Heparin Sodium (Porcine) (Heparin Vial(*)) 5,000 units SUBCUT Q8HR [facility] Last Admin: 04/22/17 05:59 Dose: 5,000 units Cefazolin Sodium/Dextrose (Kefzol Premix(*)) 100 mls @ 200 mls/hr IVPB Q8H [facility] Last Admin: 04/22/17 07:45 Dose: 200 mls/hr Iohexol (Omnipaque 350 (Contrast)-) 125 ml IV ONCE [facility] Stop: 04/23/17 07:42 Last Admin: 04/21/17 08:36 Dose: 125 ml Morphine Sulfate (Morphine Inj (Syringe)*) 4 mg IV Q3HR PRN PRN Reason: PAIN Last Admin: 04/22/17 07:55 Dose: 4 mg Pto Non Formulary Med* Lidocaine 4% Topical Cream 1 admin TOPICAL QID PRN PRN Reason: LOWER EXTREMITY PAIN Last Admin: 04/22/17 04:14 Dose: 1 admin Ondansetron HCl (Zofran Inj*) 4 mg IV Q4H PRN PRN Reason: NAUSEA/VOMITING Oxycodone/Acetaminophen (Percocet 5/325 Tab*) 1 tab PO Q4H PRN PRN Reason: Pain Last Admin: 04/21/17 21:04 Dose: 1 tab Phenytoin Sodium (Dilantin Cap(*)) 500 mg PO DAILY [facility] Last Admin: 04/22/17 07:45 Dose: 500 mg Senna (Senokot Tab*) 1 tab PO BID PRN PRN Reason: CONSTIPATION Last Admin: 04/21/17 21:30 Dose: 1 tab Vital Signs 04/21/17 04/21/17 04/21/17 11:27 13:27 15:52 Temperature 97.7 F Pulse Rate 78 Respiratory 18 18 18 Rate Blood Pressure 122/57 (mmHg) O2 Sat by Pulse 98 Oximetry 04/21/17 04/21/17 04/21/17 15:59 16:52 19:45 Temperature 97.7 F Pulse Rate 74 Respiratory 20 18 17 Rate Blood Pressure 118/61 (mmHg) O2 Sat by Pulse 98 Oximetry 04/21/17 04/21/17 04/21/17 19:46 20:00 20:45 Temperature 98.0 F Pulse Rate 85 Respiratory 18 19 19 Rate Blood Pressure 130/64 (mmHg) O2 Sat by Pulse 97 Oximetry 04/21/17 04/21/17 04/21/17 21:04 21:24 22:24 Temperature Pulse Rate Respiratory 19 20 18 Rate Blood Pressure (mmHg) O2 Sat by Pulse Oximetry 04/21/17 04/21/17 04/22/17 23:04 23:28 04:15 Temperature 98.2 F Pulse Rate 82 Respiratory 18 17 17 Rate Blood Pressure 134/70 (mmHg) O2 Sat by Pulse 100 Oximetry 04/22/17 04/22/17 04/22/17 05:15 07:17 07:55 Temperature 97.7 F Pulse Rate 79 Respiratory 17 16 18 Rate Blood Pressure 128/66 (mmHg) O2 Sat by Pulse 100 Oximetry 04/22/17 04/22/17 08:00 08:55 Temperature Pulse Rate Respiratory 18 18 Rate Blood Pressure (mmHg) O2 Sat by Pulse 100 Oximetry Oxygen Devices in Use Now: None Appearance: Male patient, OOB to chair, in NAD Eyes: No Scleral Icterus Ears/Nose/Mouth/Throat: Clear Oropharnyx, Mucous Membranes Moist Neck: NL Appearance and Movements; NL JVP Respiratory: Symmetrical Chest Expansion and Respiratory Effort, Clear to Auscultation Cardiovascular: NL Sounds; No Murmurs; No JVD, RRR Abdominal: NL Sounds; No Tenderness; No Distention Extremities: - - 2+ pitting edema BLE with R>L Skin: - - ulcerations with serous drainage noted to RLE Neurological: Alert and Oriented x 3, NL Muscle Strength and Tone Lines/Tubes/Other Access: Clean, Dry and Intact Peripheral IV Nutrition: Taking PO's Result Diagrams: 04/22/17 05:30 04/22/17 05:30 Additional Lab and Data: Lab Results 04/20/17 04/20/17 04/20/17 Range/Units 20:30 20:30 20:30 WBC 12.3 H (3.5-10.8) 10^3/ul RBC 4.47 (4.0-5.4) 10^6/ul Hgb 13.7 L (14.0-18.0) g/dl Hct 41 L (42-52) % MCV 92 (80-94) fL MCH 31 (27-31) pg MCHC 33 (31-36) g/dl RDW 14 (10.5-15) % Plt Count 273 (150-450) 10^3/ul MPV 7 L (7.4-10.4) um3 Neut % (Auto) 70.2 (38-83) % Lymph % (Auto) 17.6 L (25-47) % Mcnairy % (Auto) 10.2 H (1-9) % Eos % (Auto) 1.4 (0-6) % Baso % (Auto) 0.6 (0-2) % Absolute Neuts (auto) 8.6 H (1.5-7.7) 10^3/ul Absolute Lymphs (auto) 2.2 (1.0-4.8) 10^3/ul Absolute Monos (auto) 1.2 H (0-0.8) 10^3/ul Absolute Eos (auto) 0.2 (0-0.6) 10^3/ul Absolute Basos (auto) 0.1 (0-0.2) 10^3/ul Absolute Nucleated RBC 0.01 10^3/ul Nucleated RBC % 0.1 ESR 26 (0-40) mm/Hr INR (Anticoag Therapy) 0.94 (0.89-1.11) Sodium 134 (133-145) mmol/L Potassium 4.0 (3.5-5.0) mmol/L Chloride 102 (101-111) mmol/L Carbon Dioxide 24 (22-32) mmol/L Anion Gap 8 (2-11) mmol/L BUN 21 (6-24) mg/dL Creatinine 0.71 (0.67-1.17) mg/dL Est GFR ( Amer) 139.5 (>60) Est GFR (Non-Af Amer) 108.4 (>60) BUN/Creatinine Ratio 29.6 H (8-20) Glucose 99 (70-100) mg/dL Lactic Acid (0.5-2.0) mmol/L Calcium 9.1 (8.6-10.3) mg/dL Total Bilirubin 0.30 (0.2-1.0) mg/dL AST 14 (13-39) U/L ALT 10 (7-52) U/L Alkaline Phosphatase 159 H (34-104) U/L Total Creatine Kinase 104 (10-223) U/L Total Protein 7.0 (6.4-8.9) g/dL Albumin 3.8 (3.2-5.2) g/dL Globulin 3.2 (2-4) g/dL Albumin/Globulin Ratio 1.2 (1-3) 04/20/17 Range/Units 20:30 WBC (3.5-10.8) 10^3/ul RBC (4.0-5.4) 10^6/ul Hgb (14.0-18.0) g/dl Hct (42-52) % MCV (80-94) fL MCH (27-31) pg MCHC (31-36) g/dl RDW (10.5-15) % Plt Count (150-450) 10^3/ul MPV (7.4-10.4) um3 Neut % (Auto) (38-83) % Lymph % (Auto) (25-47) % Mcnairy % (Auto) (1-9) % Eos % (Auto) (0-6) % Baso % (Auto) (0-2) % Absolute Neuts (auto) (1.5-7.7) 10^3/ul Absolute Lymphs (auto) (1.0-4.8) 10^3/ul Absolute Monos (auto) (0-0.8) 10^3/ul Absolute Eos (auto) (0-0.6) 10^3/ul Absolute Basos (auto) (0-0.2) 10^3/ul Absolute Nucleated RBC 10^3/ul Nucleated RBC % ESR (0-40) mm/Hr INR (Anticoag Therapy) (0.89-1.11) Sodium (133-145) mmol/L Potassium (3.5-5.0) mmol/L Chloride (101-111) mmol/L Carbon Dioxide (22-32) mmol/L Anion Gap (2-11) mmol/L BUN (6-24) mg/dL Creatinine (0.67-1.17) mg/dL Est GFR ( Amer) (>60) Est GFR (Non-Af Amer) (>60) BUN/Creatinine Ratio (8-20) Glucose (70-100) mg/dL Lactic Acid 0.7 (0.5-2.0) mmol/L Calcium (8.6-10.3) mg/dL Total Bilirubin (0.2-1.0) mg/dL AST (13-39) U/L ALT (7-52) U/L Alkaline Phosphatase (34-104) U/L Total Creatine Kinase (10-223) U/L Total Protein (6.4-8.9) g/dL Albumin (3.2-5.2) g/dL Globulin (2-4) g/dL Albumin/Globulin Ratio (1-3) Diagnostic Imaging: CTA Abd/Aorta and Runoff: IMPRESSION: NO CT EVIDENCE OF SIGNIFICANT CALCIFIED PLAQUE OR HEMODYNAMICALLY SIGNIFICANT STENOSIS. DIFFUSE EDEMATOUS CHANGES IN LOWER EXTREMITIES SUGGEST VENOUS INSUFFICIENCY. Venous Doppler RLE: IMPRESSION: Subcutaneous edema overlying the right calf without femoral-popliteal deep vein thrombosis. Assess/Plan/Problems-Billing Assessment: Mr. Elizabeth is a 76 yo male with a PMH significant for chronic lymphedema ( secondary to excision of fibrosarcoma), chronic wounds, HTN, seizure disorder, and PAF who presented to the emergency room from wound care on 8/7/17 for worsening redness, swelling and ulcerations on his right lower extremity, despite being on p.o. antibiotics. - Patient Problems (1) Cellulitis of right leg Code(s): L03.115 - CELLULITIS OF RIGHT LOWER LIMB Comment: With some improvement Patient presented worsening erythema, edema, and ulcerations, failed outpt levofloxacin. Wound cx from 04/17 grew pseudomonas, but ID felt that this is likely a colonization. Continue cefazolin, per ID Appreciate ID and wound care consults Patient declining dressings with silver additive; plan to obtain different dressing from wound clinic that patient will be able to tolerate. Suspect poor wound healing secondary to treatment nonadherence with topical agents and inability to keep BLE elevated CTA with runoff shows no significant stenosis or calcified plaques. (2) Atrial fibrillation Code(s): I48.91 - UNSPECIFIED ATRIAL FIBRILLATION Comment: Currently in SR Paroxysmal afib Not on anticoagulation (3) Seizure disorder Code(s): G40.909 - EPILEPSY, UNSP, NOT INTRACTABLE, WITHOUT STATUS EPILEPTICUS Comment: Continue phenytoin. 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 Anticipate LOS>2 days. Plan for dc to home when medically stable.
[2017-04-22] MEDS ORDERED: Calcium Carbonate CHEW TAB* 500 MG (TUMS) PO PRN (10:18)
[2017-04-22] MEDS ORDERED: Pantoprazole IV* 40 MG IV ONE (10:19)
--- NOTE | 2017-04-22 11:13 | PN ---
Progress Note - Progress Note Date of Service: 04/22/17 SOAP: Subjective: CC: cellulitis HPI: 76 yo man with lymphedema and venous stasis ulceration RLE now with cellulitis RLE. Swelling, pain, redness improving. No fever, rash, or diarrhea. Objective: [] Vital Signs Temp 36.5 C 04/22/17 07:17 Pulse 79 04/22/17 07:17 Resp 18 04/22/17 08:55 BP 128/66 04/22/17 07:17 Pulse Ox 100 04/22/17 08:00 Intake & Output 04/21/17 04/22/17 04/22/17 18:59 06:59 18:59 Intake Total 660 440 480 Output Total 1700 2600 Balance -1040 -2160 480 Intake: Oral 660 440 480 Output: Urine 1700 2600 Other: Estimated Void Medium Medium # Bowel Movements 0 # Voids 2 3 Gen:Awake, no distress Neuro: Ox3 HEENT:PERRL, MMM Heart:RRR no murmur Lungs:CTA BL Abd:+BS NTND soft MSK: R>L lymphedema, R leg diffuse erythema and superficial slough Laboratory Results - last 24 hr 04/22/17 04/22/17 05:30 05:30 WBC 10.6 RBC 4.18 Hgb 13.2 L Hct 39 L MCV 94 MCH 32 H MCHC 34 RDW 14 Plt Count 180 MPV 9 Neut % (Auto) 62.5 Lymph % (Auto) 22.6 L [place] % (Auto) 10.7 H Eos % (Auto) 3.0 Baso % (Auto) 1.2 Absolute Neuts (auto) 6.6 Absolute Lymphs (auto) 2.4 Absolute Monos (auto) 1.1 H Absolute Eos (auto) 0.3 Absolute Basos (auto) 0.1 Absolute Nucleated RBC 0.01 Nucleated RBC % 0.1 Sodium 135 Potassium 4.4 Chloride 106 Carbon Dioxide 18 L Anion Gap 11 BUN 17 Creatinine 0.71 Est GFR ( Amer) 139.5 Est GFR (Non-Af Amer) 108.4 BUN/Creatinine Ratio 23.9 H Glucose 98 Calcium 8.9 C-Reactive Protein 85.05 H Vancomycin Trough 9.8 Assessment: 1. R LE cellulitis related to R LE venous stasis ulceration 2. morbid obesity 3. elevated CRP Plan: 1. continue ancef 24 more hours; leg elevation as able Discussed with Rosalia Man NP
[2017-04-22] MEDS: oxyCODONE/Acetamin 5/325 MG* TAB PO PRN (18:29)
[2017-04-22] MEDS: Docusate CAP* 100 MG PO PRN (20:53)
[2017-04-22] MEDS: Senna TAB PO PRN (20:53)
[2017-04-23] MEDS: ceFAZolin 2 GM PREMIX (*) 100 ML IVPB SCH ×4 (01:26→23:23)
[2017-04-23] MEDS: Morphine INJ* 4 MG/ML 1 ML SYRINGE IV PRN ×4 (02:02→22:41)
[2017-04-23] MEDS: LIDOCAINE 4% TOPICAL PRN ×2 (02:22→10:35)
[2017-04-23] MEDS: Omeprazole CAP* 20 MG PO SCH (05:59)
[2017-04-23] MEDS: Heparin VIAL(*) 5000 UNITS/ML VIAL (FIVE THOUSAND) SUBCUT SCH ×3 (06:00→22:38)
[2017-04-23] MEDS: Furosemide TAB* 40 MG PO SCH (09:53)
[2017-04-23] MEDS: Aspirin TAB* 325 MG PO SCH (09:53)
[2017-04-23] MEDS: Phenytoin CAP(*) 100 MG CAP.ER PO SCH (09:53)
[2017-04-23] MEDS: oxyCODONE/Acetamin 5/325 MG* TAB PO PRN ×2 (10:33→18:30)
--- NOTE | 2017-04-23 10:34 | PN ---
Subjective Date of Service: 04/23/17 Interval History: Patient seen and examined at bedside. Patient continues to report that he wants to "wait until the infection clears" before using dressings. Patient encouraged to receive premedication and use the new Aquacel dressing to help with exudate and to leave dressing on for more than 5 minutes. He is very agitated by the idea of dressing but "will think about it." Patient also refuses to elevate legs, due to fear of pain. Denies fever/chills, CP, SOB. Family History: Unchanged from Admission Social History: Unchanged from Admission Past Medical History: Unchanged from Admission Objective Active Medications: Acetaminophen (Tylenol Tab*) 650 mg PO Q4H PRN PRN Reason: FEVER/PAIN Al Hydrox/Mg Hydrox/Simethicone (Maalox Plus*) 30 ml PO Q6H PRN PRN Reason: INDIGESTION Aspirin (Aspirin Tab*) 325 mg PO DAILY [facility] Last Admin: 04/23/17 09:53 Dose: 325 mg Calcium Carbonate (Tums*) 500 mg PO Q4H PRN PRN Reason: DYSPEPSIA Docusate Sodium (Colace Cap*) 100 mg PO BID PRN PRN Reason: CONSTIPATION Last Admin: 04/22/17 20:53 Dose: 100 mg Furosemide (Lasix Tab*) 40 mg PO DAILY [facility] Last Admin: 04/23/17 09:53 Dose: 40 mg Heparin Sodium (Porcine) (Heparin Vial(*)) 5,000 units SUBCUT Q8HR [facility] Last Admin: 04/23/17 06:00 Dose: 5,000 units Cefazolin Sodium/Dextrose (Kefzol Premix(*)) 100 mls @ 200 mls/hr IVPB Q8H [facility] Last Admin: 04/23/17 09:54 Dose: 200 mls/hr Morphine Sulfate (Morphine Inj (Syringe)*) 4 mg IV Q4H PRN PRN Reason: PAIN Last Admin: 04/23/17 06:00 Dose: 4 mg Pto Non Formulary Med* Lidocaine 4% Topical Cream 1 admin TOPICAL QID PRN PRN Reason: LOWER EXTREMITY PAIN Last Admin: 04/23/17 02:22 Dose: 1 admin Omeprazole (Prilosec Cap*) 20 mg PO DAILY@0600 [facility] Last Admin: 04/23/17 05:59 Dose: 20 mg Ondansetron HCl (Zofran Inj*) 4 mg IV Q4H PRN PRN Reason: NAUSEA/VOMITING Oxycodone/Acetaminophen (Percocet 5/325 Tab*) 1 tab PO Q4H PRN PRN Reason: Pain Last Admin: 04/22/17 18:29 Dose: 1 tab Oxycodone/Acetaminophen (Percocet 5/325 Tab*) 2 tab PO Q4H PRN PRN Reason: PAIN - MODERATE TO SEVERE Phenytoin Sodium (Dilantin Cap(*)) 500 mg PO DAILY [facility] Last Admin: 04/23/17 09:53 Dose: 500 mg Senna (Senokot Tab*) 1 tab PO BID PRN PRN Reason: CONSTIPATION Last Admin: 04/22/17 20:53 Dose: 1 tab Vital Signs 04/22/17 04/22/17 04/22/17 15:22 16:38 18:29 Temperature 97.8 F Pulse Rate 79 Respiratory 16 16 18 Rate Blood Pressure 111/69 (mmHg) O2 Sat by Pulse 98 Oximetry 04/22/17 04/22/17 04/22/17 20:00 20:15 20:21 Temperature 98.7 F Pulse Rate 82 Respiratory 18 20 Rate Blood Pressure 123/59 (mmHg) O2 Sat by Pulse 99 98 Oximetry 04/22/17 04/22/17 04/22/17 20:29 20:52 23:35 Temperature 98.1 F Pulse Rate 79 Respiratory 18 18 17 Rate Blood Pressure 127/76 (mmHg) O2 Sat by Pulse 99 Oximetry 04/23/17 04/23/17 04/23/17 02:02 03:02 06:00 Temperature Pulse Rate Respiratory 16 16 18 Rate Blood Pressure (mmHg) O2 Sat by Pulse Oximetry 04/23/17 07:00 Temperature Pulse Rate Respiratory 8 Rate Blood Pressure (mmHg) O2 Sat by Pulse Oximetry Oxygen Devices in Use Now: None Appearance: Male patient, OOB to chair, NAD Eyes: No Scleral Icterus Ears/Nose/Mouth/Throat: Clear Oropharnyx, Mucous Membranes Moist Neck: NL Appearance and Movements; NL JVP Respiratory: Symmetrical Chest Expansion and Respiratory Effort, Clear to Auscultation Cardiovascular: NL Sounds; No Murmurs; No JVD, RRR Abdominal: NL Sounds; No Tenderness; No Distention Extremities: - - BLE edema, R>L Neurological: Alert and Oriented x 3, NL Muscle Strength and Tone Lines/Tubes/Other Access: Clean, Dry and Intact Peripheral IV Nutrition: Taking PO's Result Diagrams: 04/22/17 05:30 04/22/17 05:30 Additional Lab and Data: Lab Results 04/20/17 04/20/17 04/20/17 Range/Units 20:30 20:30 20:30 WBC 12.3 H (3.5-10.8) 10^3/ul RBC 4.47 (4.0-5.4) 10^6/ul Hgb 13.7 L (14.0-18.0) g/dl Hct 41 L (42-52) % MCV 92 (80-94) fL MCH 31 (27-31) pg MCHC 33 (31-36) g/dl RDW 14 (10.5-15) % Plt Count 273 (150-450) 10^3/ul MPV 7 L (7.4-10.4) um3 Neut % (Auto) 70.2 (38-83) % Lymph % (Auto) 17.6 L (25-47) % [place] % (Auto) 10.2 H (1-9) % Eos % (Auto) 1.4 (0-6) % Baso % (Auto) 0.6 (0-2) % Absolute Neuts (auto) 8.6 H (1.5-7.7) 10^3/ul Absolute Lymphs (auto) 2.2 (1.0-4.8) 10^3/ul Absolute Monos (auto) 1.2 H (0-0.8) 10^3/ul Absolute Eos (auto) 0.2 (0-0.6) 10^3/ul Absolute Basos (auto) 0.1 (0-0.2) 10^3/ul Absolute Nucleated RBC 0.01 10^3/ul Nucleated RBC % 0.1 ESR 26 (0-40) mm/Hr INR (Anticoag Therapy) 0.94 (0.89-1.11) Sodium 134 (133-145) mmol/L Potassium 4.0 (3.5-5.0) mmol/L Chloride 102 (101-111) mmol/L Carbon Dioxide 24 (22-32) mmol/L Anion Gap 8 (2-11) mmol/L BUN 21 (6-24) mg/dL Creatinine 0.71 (0.67-1.17) mg/dL Est GFR ( Amer) 139.5 (>60) Est GFR (Non-Af Amer) 108.4 (>60) BUN/Creatinine Ratio 29.6 H (8-20) Glucose 99 (70-100) mg/dL Lactic Acid (0.5-2.0) mmol/L Calcium 9.1 (8.6-10.3) mg/dL Total Bilirubin 0.30 (0.2-1.0) mg/dL AST 14 (13-39) U/L ALT 10 (7-52) U/L Alkaline Phosphatase 159 H (34-104) U/L Total Creatine Kinase 104 (10-223) U/L Total Protein 7.0 (6.4-8.9) g/dL Albumin 3.8 (3.2-5.2) g/dL Globulin 3.2 (2-4) g/dL Albumin/Globulin Ratio 1.2 (1-3) 04/20/17 Range/Units 20:30 WBC (3.5-10.8) 10^3/ul RBC (4.0-5.4) 10^6/ul Hgb (14.0-18.0) g/dl Hct (42-52) % MCV (80-94) fL MCH (27-31) pg MCHC (31-36) g/dl RDW (10.5-15) % Plt Count (150-450) 10^3/ul MPV (7.4-10.4) um3 Neut % (Auto) (38-83) % Lymph % (Auto) (25-47) % [place] % (Auto) (1-9) % Eos % (Auto) (0-6) % Baso % (Auto) (0-2) % Absolute Neuts (auto) (1.5-7.7) 10^3/ul Absolute Lymphs (auto) (1.0-4.8) 10^3/ul Absolute Monos (auto) (0-0.8) 10^3/ul Absolute Eos (auto) (0-0.6) 10^3/ul Absolute Basos (auto) (0-0.2) 10^3/ul Absolute Nucleated RBC 10^3/ul Nucleated RBC % ESR (0-40) mm/Hr INR (Anticoag Therapy) (0.89-1.11) Sodium (133-145) mmol/L Potassium (3.5-5.0) mmol/L Chloride (101-111) mmol/L Carbon Dioxide (22-32) mmol/L Anion Gap (2-11) mmol/L BUN (6-24) mg/dL Creatinine (0.67-1.17) mg/dL Est GFR ( Amer) (>60) Est GFR (Non-Af Amer) (>60) BUN/Creatinine Ratio (8-20) Glucose (70-100) mg/dL Lactic Acid 0.7 (0.5-2.0) mmol/L Calcium (8.6-10.3) mg/dL Total Bilirubin (0.2-1.0) mg/dL AST (13-39) U/L ALT (7-52) U/L Alkaline Phosphatase (34-104) U/L Total Creatine Kinase (10-223) U/L Total Protein (6.4-8.9) g/dL Albumin (3.2-5.2) g/dL Globulin (2-4) g/dL Albumin/Globulin Ratio (1-3) Diagnostic Imaging: CTA Abd/Aorta and Runoff: IMPRESSION: NO CT EVIDENCE OF SIGNIFICANT CALCIFIED PLAQUE OR HEMODYNAMICALLY SIGNIFICANT STENOSIS. DIFFUSE EDEMATOUS CHANGES IN LOWER EXTREMITIES SUGGEST VENOUS INSUFFICIENCY. Venous Doppler RLE: IMPRESSION: Subcutaneous edema overlying the right calf without femoral-popliteal deep vein thrombosis. Assess/Plan/Problems-Billing Assessment: Mr. Elizabeth is a 76 yo male with a PMH significant for chronic lymphedema ( secondary to excision of fibrosarcoma), chronic wounds, HTN, seizure disorder, and PAF who presented to the emergency room from wound care on 04/20/17 for worsening redness, swelling and ulcerations on his right lower extremity, despite being on p.o. antibiotics. - Patient Problems (1) Cellulitis of right leg Code(s): L03.115 - CELLULITIS OF RIGHT LOWER LIMB Comment: With some improvement Patient presented worsening erythema, edema, and ulcerations, failed outpt levofloxacin. Wound cx from 04/17 grew pseudomonas, but ID felt that this is likely a colonization. Continue cefazolin, per ID Appreciate ID and wound care consults Patient has been declining dressing changes and foot stool for leg elevation. Suspect poor wound healing secondary to treatment nonadherence with topical agents and inability to keep BLE elevated CTA with runoff shows no significant stenosis or calcified plaques. (2) Atrial fibrillation Code(s): I48.91 - UNSPECIFIED ATRIAL FIBRILLATION Comment: Currently in SR Paroxysmal afib Not on anticoagulation (3) Seizure disorder Code(s): G40.909 - EPILEPSY, UNSP, NOT INTRACTABLE, WITHOUT STATUS EPILEPTICUS Comment: Continue phenytoin. 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 Anticipate LOS>2 days. Plan for dc to home when medically stable.
[2017-04-23] MEDS ORDERED: LORazepam TAB(*) 1 MG PO PRN (13:29)
[2017-04-24 05:57] LABS: BUN/Creatinine Ratio 23.9 (8-20); C Reactive Protein 72.26 mg/L (< 5.00); Calcium 8.7 mg/dL (8.6-10.3); EGFR African American 149.1 (>60)
[2017-04-24] MEDS: Heparin VIAL(*) 5000 UNITS/ML VIAL (FIVE THOUSAND) SUBCUT SCH ×3 (05:57→21:35)
[2017-04-24] MEDS: Omeprazole CAP* 20 MG PO SCH (05:57)
[2017-04-24] MEDS: ceFAZolin 2 GM PREMIX (*) 100 ML IVPB SCH ×3 (07:50→23:46)
[2017-04-24] MEDS: Phenytoin CAP(*) 100 MG CAP.ER PO SCH (07:50)
[2017-04-24] MEDS: Aspirin TAB* 325 MG PO SCH (07:51)
[2017-04-24] MEDS: Furosemide TAB* 40 MG PO SCH (07:51)
[2017-04-24] MEDS: Morphine INJ* 4 MG/ML 1 ML SYRINGE IV PRN ×4 (07:59→21:36)
[2017-04-24] MEDS: Polyethylene Glycol 3350* 17 GM PACKET PO PRN ×2 (11:35→21:35)
[2017-04-24] MEDS: Docusate CAP* 100 MG PO PRN ×2 (12:32→21:35)
[2017-04-24] MEDS: Senna TAB PO PRN (12:32)
[2017-04-24] MEDS: Furosemide IV* 10 MG/ML VIAL (40 MG) IV SCH (17:05)
--- NOTE | 2017-04-24 18:26 | PN ---
Subjective Date of Service: 04/24/17 Interval History: This is a 76 yo gentleman with afib, seizure d/o and chronic lymphedema who presented with open ulcerations, erythema and increased swelling of the RLE. Patient has been treated with cefazolin with some improvement although patient' s ability to cooperate with measures to reduce edema including leg elevation and compression are limited by pain in the leg. Patient reports persistent pain and swelling in the leg but some improvement in erythema. No fevers, SOB, CP, abd pain, n/v. Objective Active Medications: Acetaminophen (Tylenol Tab*) 650 mg PO Q4H PRN PRN Reason: FEVER/PAIN Al Hydrox/Mg Hydrox/Simethicone (Maalox Plus*) 30 ml PO Q6H PRN PRN Reason: INDIGESTION Aspirin (Aspirin Tab*) 325 mg PO DAILY [facility] Last Admin: 04/24/17 07:51 Dose: 325 mg Calcium Carbonate (Tums*) 500 mg PO Q4H PRN PRN Reason: DYSPEPSIA Docusate Sodium (Colace Cap*) 100 mg PO BID PRN PRN Reason: CONSTIPATION Last Admin: 04/24/17 12:32 Dose: 100 mg Furosemide (Lasix Iv*) 40 mg IV DAILY [facility] Last Admin: 04/24/17 17:05 Dose: 40 mg Heparin Sodium (Porcine) (Heparin Vial(*)) 5,000 units SUBCUT Q8HR [facility] Last Admin: 04/24/17 12:26 Dose: 5,000 units Cefazolin Sodium/Dextrose (Kefzol Premix(*)) 100 mls @ 200 mls/hr IVPB Q8H [facility] Last Admin: 04/24/17 17:02 Dose: 200 mls/hr Lorazepam (Ativan Tab(*)) 1 mg PO Q4H PRN PRN Reason: ANXIETY Morphine Sulfate (Morphine Inj (Syringe)*) 4 mg IV Q4H PRN PRN Reason: PAIN Last Admin: 04/24/17 17:07 Dose: 4 mg Pto Non Formulary Med* Lidocaine 4% Topical Cream 1 admin TOPICAL QID PRN PRN Reason: LOWER EXTREMITY PAIN Last Admin: 04/23/17 10:35 Dose: 1 admin Omeprazole (Prilosec Cap*) 20 mg PO DAILY@0600 [facility] Last Admin: 04/24/17 05:57 Dose: 20 mg Ondansetron HCl (Zofran Inj*) 4 mg IV Q4H PRN PRN Reason: NAUSEA/VOMITING Oxycodone/Acetaminophen (Percocet 5/325 Tab*) 1 tab PO Q4H PRN PRN Reason: Pain Last Admin: 04/22/17 18:29 Dose: 1 tab Oxycodone/Acetaminophen (Percocet 5/325 Tab*) 2 tab PO Q4H PRN PRN Reason: PAIN - MODERATE TO SEVERE Last Admin: 04/23/17 18:30 Dose: 2 tab Phenytoin Sodium (Dilantin Cap(*)) 500 mg PO DAILY [facility] Last Admin: 04/24/17 07:50 Dose: 500 mg Polyethylene Glycol/Electrolytes (Miralax*) 17 gm PO BID PRN PRN Reason: CONSTIPATION Last Admin: 04/24/17 11:35 Dose: 17 gm Senna (Senokot Tab*) 1 tab PO BID PRN PRN Reason: CONSTIPATION Last Admin: 04/24/17 12:32 Dose: 1 tab Vital Signs: Temp Pulse Resp BP Pulse Ox 97.8 F 81 20 124/62 97 04/24/17 15:43 04/24/17 15:43 04/24/17 17:07 04/24/17 15:43 04/24/17 15:43 Oxygen Devices in Use Now: None Appearance: Well but chronically ill appearing elderly gentleman in NAD Respiratory: Symmetrical Chest Expansion and Respiratory Effort, Clear to Auscultation Cardiovascular: NL Sounds; No Murmurs; No JVD, RRR Abdominal: NL Sounds; No Tenderness; No Distention Extremities: - - severe bilateral edema, R greater than L Skin: - - hyperpigmentation changes of the LLE and diffuse erythema of the distal RLE with multiple open and weeping ulcerations Neurological: Alert and Oriented x 3 Result Diagrams: 04/22/17 05:30 04/24/17 05:29 Additional Lab and Data: . Diagnostic Imaging: CTA Abd/Aorta and Runoff: IMPRESSION: NO CT EVIDENCE OF SIGNIFICANT CALCIFIED PLAQUE OR HEMODYNAMICALLY SIGNIFICANT STENOSIS. DIFFUSE EDEMATOUS CHANGES IN LOWER EXTREMITIES SUGGEST VENOUS INSUFFICIENCY. Venous Doppler RLE: IMPRESSION: Subcutaneous edema overlying the right calf without femoral-popliteal deep vein thrombosis. Assess/Plan/Problems-Billing Assessment: Mr. Elizabeth is a 76 yo male with a PMH significant for chronic lymphedema ( secondary to excision of fibrosarcoma), chronic wounds, HTN, seizure disorder, and PAF who presented to the emergency room from wound care on 04/20/17 for worsening redness, swelling and ulcerations on his right lower extremity, despite being on p.o. antibiotics. - Patient Problems (1) Cellulitis of right leg Comment: With some improvement Patient presented worsening erythema, edema, and ulcerations, failed outpt levofloxacin. Wound cx from 04/17 grew pseudomonas, but ID felt that this is likely a colonization. Continue cefazolin, per ID Appreciate ID and wound care consults Patient has been declining dressing changes and foot stool for leg elevation. CTA with runoff shows no significant stenosis or calcified plaques. 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 Seizure precautions (4) Atrial fibrillation Comment: Currently in SR Paroxysmal afib Not on anticoagulation for unknown reasons (5) DVT prophylaxis Comment: SQ heparin (6) Full code status Status and Disposition: Inpatient admission. Anticipate dc in 2-3 days
[2017-04-25] MEDS: oxyCODONE/Acetamin 5/325 MG* TAB PO PRN ×2 (00:35→20:15)
[2017-04-25] MEDS: Morphine INJ* 4 MG/ML 1 ML SYRINGE IV PRN ×4 (02:46→21:46)
[2017-04-25] MEDS: Heparin VIAL(*) 5000 UNITS/ML VIAL (FIVE THOUSAND) SUBCUT SCH ×3 (05:37→21:47)
[2017-04-25] MEDS: Omeprazole CAP* 20 MG PO SCH (05:37)
[2017-04-25 06:42] LABS: BUN/Creatinine Ratio 25.4 (8-20); Calcium 8.7 mg/dL (8.6-10.3); EGFR African American 149.1 (>60); Potassium 3.8 mmol/L (3.5-5.0)
[2017-04-25] MEDS: Furosemide IV* 10 MG/ML VIAL (40 MG) IV SCH ×2 (07:42→16:42)
[2017-04-25] MEDS: Phenytoin CAP(*) 100 MG CAP.ER PO SCH (07:46)
[2017-04-25] MEDS: Aspirin TAB* 325 MG PO SCH (07:46)
[2017-04-25] MEDS: ceFAZolin 2 GM PREMIX (*) 100 ML IVPB SCH ×2 (07:46→16:42)
--- NOTE | 2017-04-25 15:05 | PN ---
Subjective Date of Service: 04/25/17 Interval History: Patient reports no significant change since yesterday. Still having intermittent pain in his R leg, swelling might be slightly improved. He reports good diuresis from IV Lasix Objective Active Medications: Acetaminophen (Tylenol Tab*) 650 mg PO Q4H PRN PRN Reason: FEVER/PAIN Al Hydrox/Mg Hydrox/Simethicone (Maalox Plus*) 30 ml PO Q6H PRN PRN Reason: INDIGESTION Aspirin (Aspirin Tab*) 325 mg PO DAILY [facility] Last Admin: 04/25/17 07:46 Dose: 325 mg Calcium Carbonate (Tums*) 500 mg PO Q4H PRN PRN Reason: DYSPEPSIA Docusate Sodium (Colace Cap*) 100 mg PO BID PRN PRN Reason: CONSTIPATION Last Admin: 04/24/17 21:35 Dose: 100 mg Furosemide (Lasix Iv*) 40 mg IV DAILY [facility] Last Admin: 04/25/17 07:42 Dose: 40 mg Heparin Sodium (Porcine) (Heparin Vial(*)) 5,000 units SUBCUT Q8HR [facility] Last Admin: 04/25/17 05:37 Dose: 5,000 units Cefazolin Sodium/Dextrose (Kefzol Premix(*)) 100 mls @ 200 mls/hr IVPB Q8H [facility] Last Admin: 04/25/17 07:46 Dose: 200 mls/hr Lorazepam (Ativan Tab(*)) 1 mg PO Q4H PRN PRN Reason: ANXIETY Morphine Sulfate (Morphine Inj (Syringe)*) 4 mg IV Q4H PRN PRN Reason: PAIN Last Admin: 04/25/17 07:44 Dose: 4 mg Pto Non Formulary Med* Lidocaine 4% Topical Cream 1 admin TOPICAL QID PRN PRN Reason: LOWER EXTREMITY PAIN Last Admin: 04/23/17 10:35 Dose: 1 admin Omeprazole (Prilosec Cap*) 20 mg PO DAILY@0600 [facility] Last Admin: 04/25/17 05:37 Dose: 20 mg Ondansetron HCl (Zofran Inj*) 4 mg IV Q4H PRN PRN Reason: NAUSEA/VOMITING Oxycodone/Acetaminophen (Percocet 5/325 Tab*) 1 tab PO Q4H PRN PRN Reason: Pain Last Admin: 04/22/17 18:29 Dose: 1 tab Oxycodone/Acetaminophen (Percocet 5/325 Tab*) 2 tab PO Q4H PRN PRN Reason: PAIN - MODERATE TO SEVERE Last Admin: 04/25/17 00:35 Dose: 2 tab Phenytoin Sodium (Dilantin Cap(*)) 500 mg PO DAILY [facility] Last Admin: 04/25/17 07:46 Dose: 500 mg Polyethylene Glycol/Electrolytes (Miralax*) 17 gm PO BID PRN PRN Reason: CONSTIPATION Last Admin: 04/24/17 21:35 Dose: 17 gm Senna (Senokot Tab*) 1 tab PO BID PRN PRN Reason: CONSTIPATION Last Admin: 04/24/17 12:32 Dose: 1 tab Vital Signs: Temp Pulse Resp BP Pulse Ox 97.8 F 78 18 120/64 92 04/25/17 07:54 04/25/17 07:54 04/25/17 08:00 04/25/17 07:54 04/25/17 08:00 Oxygen Devices in Use Now: None Appearance: Well appearing in NAD. Accompanied by his son Respiratory: Symmetrical Chest Expansion and Respiratory Effort, Clear to Auscultation Cardiovascular: NL Sounds; No Murmurs; No JVD, RRR Extremities: - - severe bilateral LE edema with R>L slightly improved since yesterday Skin: - - RLE erythema with multiple open ulcerations Neurological: Alert and Oriented x 3 Result Diagrams: 04/22/17 05:30 04/25/17 05:36 Additional Lab and Data: . Diagnostic Imaging: CTA Abd/Aorta and Runoff: IMPRESSION: NO CT EVIDENCE OF SIGNIFICANT CALCIFIED PLAQUE OR HEMODYNAMICALLY SIGNIFICANT STENOSIS. DIFFUSE EDEMATOUS CHANGES IN LOWER EXTREMITIES SUGGEST VENOUS INSUFFICIENCY. Venous Doppler RLE: IMPRESSION: Subcutaneous edema overlying the right calf without femoral-popliteal deep vein thrombosis. Assess/Plan/Problems-Billing Assessment: Mr. Elizabeth is a 76 yo male with a PMH significant for chronic lymphedema ( secondary to excision of fibrosarcoma), chronic wounds, HTN, seizure disorder, and PAF who presented to the emergency room from wound care on 04/20/17 for worsening redness, swelling and ulcerations on his right lower extremity, despite being on p.o. antibiotics. - Patient Problems (1) Cellulitis of right leg Comment: With some improvement Patient presented worsening erythema, edema, and ulcerations, failed outpt levofloxacin. Wound cx from 04/17 grew pseudomonas, but ID felt that this is likely a colonization. Continue cefazolin, per ID Appreciate ID and wound care consults Patient has been declining dressing changes and foot stool for leg elevation. CTA with runoff shows no significant stenosis or calcified plaques. Further improvement is limited by persistent edema, patient is unable to apply a compressive bandage or elevate his legs due to pain Some improvement in edema with IV Lasix today, plan to increase to bid dosing and cont to monitor renal fxn (2) Chronic acquired lymphedema Comment: Secondary to history of fibrosarcoma to RLE in 1964, s/p excision (3) Seizure disorder Comment: Continue phenytoin. Seizure precautions (4) Atrial fibrillation Comment: Currently in SR Paroxysmal afib Not on anticoagulation for unknown reasons (5) DVT prophylaxis Comment: SQ heparin (6) Full code status Status and Disposition: Inpatient admission. Anticipate dc in 2-3 days
[2017-04-26] MEDS: oxyCODONE/Acetamin 5/325 MG* TAB PO PRN ×3 (00:30→15:20)
[2017-04-26] MEDS: ceFAZolin 2 GM PREMIX (*) 100 ML IVPB SCH ×2 (00:31→09:08)
[2017-04-26] MEDS: Morphine INJ* 4 MG/ML 1 ML SYRINGE IV PRN ×3 (02:14→15:14)
[2017-04-26] MEDS: Heparin VIAL(*) 5000 UNITS/ML VIAL (FIVE THOUSAND) SUBCUT SCH ×3 (06:12→23:54)
[2017-04-26] MEDS: Omeprazole CAP* 20 MG PO SCH (06:12)
[2017-04-26] MEDS: Furosemide IV* 10 MG/ML VIAL (40 MG) IV SCH ×2 (06:12→17:07)
[2017-04-26 08:14] LABS: BUN/Creatinine Ratio 24.3 (8-20); Calcium 9.2 mg/dL (8.6-10.3); EGFR Non-African American 103.4 (>60); Potassium 4.2 mmol/L (3.5-5.0)
[2017-04-26] MEDS ORDERED: ceFAZolin 2 GM PREMIX (*) 50 ML IVPB SCH (08:48)
[2017-04-26] MEDS: ceFAZolin 2 GM PREMIX (*) 50 ML IVPB SCH ×3 (09:45→23:54)
[2017-04-26] MEDS: Polyethylene Glycol 3350* 17 GM PACKET PO PRN ×2 (09:45→23:54)
[2017-04-26] MEDS: Phenytoin CAP(*) 100 MG CAP.ER PO SCH (09:47)
[2017-04-26] MEDS: Aspirin TAB* 325 MG PO SCH (09:47)
[2017-04-26] MEDS: Docusate CAP* 100 MG PO PRN (09:48)
[2017-04-26] MEDS: Senna TAB PO PRN ×2 (09:48→23:54)
[2017-04-26 10:33] LABS: Magnesium 2.2 mg/dL (1.9-2.7)
[2017-04-26] MEDS ORDERED: Phenytoin CAP(*) 100 MG CAP.ER PO ONE (14:53)
--- NOTE | 2017-04-26 14:59 | PN ---
Subjective Date of Service: 04/26/17 Interval History: Patient has been minimally complaint with elevating his legs and still reports inability to tolerate compression. No fevers. He still has occasional sever pain in his leg. He feels "jumpy" today and is afraid that it is a prodrome to a seizure. He is requesting an extra dose of his Dilantin which is how he manages those symptoms at home. Objective Active Medications: Acetaminophen (Tylenol Tab*) 650 mg PO Q4H PRN PRN Reason: FEVER/PAIN Al Hydrox/Mg Hydrox/Simethicone (Maalox Plus*) 30 ml PO Q6H PRN PRN Reason: INDIGESTION Aspirin (Aspirin Tab*) 325 mg PO DAILY [facility] Last Admin: 04/26/17 09:47 Dose: 325 mg Calcium Carbonate (Tums*) 500 mg PO Q4H PRN PRN Reason: DYSPEPSIA Docusate Sodium (Colace Cap*) 100 mg PO BID PRN PRN Reason: CONSTIPATION Last Admin: 04/26/17 09:48 Dose: 100 mg Furosemide (Lasix Iv*) 40 mg IV 0700,1700 [facility] Last Admin: 04/26/17 06:12 Dose: 40 mg Heparin Sodium (Porcine) (Heparin Vial(*)) 5,000 units SUBCUT Q8HR [facility] Last Admin: 04/26/17 13:56 Dose: 5,000 units Cefazolin Sodium/Dextrose (Kefzol 2 Gm Premix(*)) 50 mls @ 100 mls/hr IVPB Q8H [facility] Last Admin: 04/26/17 09:45 Dose: 100 mls/hr Lorazepam (Ativan Tab(*)) 1 mg PO Q4H PRN PRN Reason: ANXIETY Morphine Sulfate (Morphine Inj (Syringe)*) 4 mg IV Q4H PRN PRN Reason: PAIN Last Admin: 04/26/17 06:13 Dose: 4 mg Pto Non Formulary Med* Lidocaine 4% Topical Cream 1 admin TOPICAL QID PRN PRN Reason: LOWER EXTREMITY PAIN Last Admin: 04/23/17 10:35 Dose: 1 admin Omeprazole (Prilosec Cap*) 20 mg PO DAILY@0600 [facility] Last Admin: 04/26/17 06:12 Dose: 20 mg Ondansetron HCl (Zofran Inj*) 4 mg IV Q4H PRN PRN Reason: NAUSEA/VOMITING Oxycodone/Acetaminophen (Percocet 5/325 Tab*) 1 tab PO Q4H PRN PRN Reason: Pain Last Admin: 04/22/17 18:29 Dose: 1 tab Oxycodone/Acetaminophen (Percocet 5/325 Tab*) 2 tab PO Q4H PRN PRN Reason: PAIN - MODERATE TO SEVERE Last Admin: 04/26/17 09:48 Dose: 2 tab Phenytoin Sodium (Dilantin Cap(*)) 500 mg PO DAILY [facility] Last Admin: 04/26/17 09:47 Dose: 500 mg Phenytoin Sodium (Dilantin Cap(*)) 200 mg PO ONCE ONE Stop: 04/26/17 14:54 Polyethylene Glycol/Electrolytes (Miralax*) 17 gm PO BID PRN PRN Reason: CONSTIPATION Last Admin: 04/26/17 09:45 Dose: 17 gm Senna (Senokot Tab*) 1 tab PO BID PRN PRN Reason: CONSTIPATION Last Admin: 04/26/17 09:48 Dose: 1 tab Vital Signs: Temp Pulse Resp BP Pulse Ox 97.8 F 89 18 116/63 96 04/26/17 08:00 04/26/17 11:58 04/26/17 11:58 04/26/17 11:58 04/26/17 11:58 Oxygen Devices in Use Now: None Appearance: Well appearing elderly gentleman in NAD Respiratory: Symmetrical Chest Expansion and Respiratory Effort, Clear to Auscultation Cardiovascular: NL Sounds; No Murmurs; No JVD, RRR Extremities: - - severe edema bilaterally, R>L Skin: - - RLE erythema with multiple open ulcerations, degree of erythema appears to be improving Neurological: Alert and Oriented x 3 Result Diagrams: 04/22/17 05:30 04/26/17 07:43 Additional Lab and Data: . Diagnostic Imaging: CTA Abd/Aorta and Runoff: IMPRESSION: NO CT EVIDENCE OF SIGNIFICANT CALCIFIED PLAQUE OR HEMODYNAMICALLY SIGNIFICANT STENOSIS. DIFFUSE EDEMATOUS CHANGES IN LOWER EXTREMITIES SUGGEST VENOUS INSUFFICIENCY. Venous Doppler RLE: IMPRESSION: Subcutaneous edema overlying the right calf without femoral-popliteal deep vein thrombosis. Assess/Plan/Problems-Billing Assessment: Mr. Elizabeth is a 76 yo male with a PMH significant for chronic lymphedema ( secondary to excision of fibrosarcoma), chronic wounds, HTN, seizure disorder, and PAF who presented to the emergency room from wound care on 04/20/17 for worsening redness, swelling and ulcerations on his right lower extremity, despite being on p.o. antibiotics. - Patient Problems (1) Cellulitis of right leg Comment: With some improvement Patient presented worsening erythema, edema, and ulcerations, failed outpt levofloxacin. Wound cx from 04/17 grew pseudomonas, but ID felt that this is likely a colonization. Continue cefazolin, per ID Appreciate ID and wound care consults Patient has been declining dressing changes and foot stool for leg elevation. CTA with runoff shows no significant stenosis or calcified plaques. 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 Seizure precautions Extra dose of Dilantin provided today per pt request (4) Atrial fibrillation Comment: Currently in SR Paroxysmal afib Not on anticoagulation for unknown reasons (5) DVT prophylaxis Comment: SQ heparin (6) Full code status Status and Disposition: Inpatient admission. Anticipate dc in 2-3 days
[2017-04-27] MEDS: Morphine INJ* 4 MG/ML 1 ML SYRINGE IV PRN ×5 (00:01→23:23)
[2017-04-27] MEDS: oxyCODONE/Acetamin 5/325 MG* TAB PO PRN ×4 (02:02→21:04)
[2017-04-27] MEDS: Heparin VIAL(*) 5000 UNITS/ML VIAL (FIVE THOUSAND) SUBCUT SCH ×3 (06:22→21:06)
[2017-04-27] MEDS: Furosemide IV* 10 MG/ML VIAL (40 MG) IV SCH ×2 (06:23→16:30)
[2017-04-27] MEDS: Omeprazole CAP* 20 MG PO SCH (06:23)
[2017-04-27 07:37] LABS: BUN/Creatinine Ratio 24.7 (8-20); C Reactive Protein 40.57 mg/L (< 5.00); Calcium 8.8 mg/dL (8.6-10.3); EGFR African American 135.1 (>60); Potassium 4.1 mmol/L (3.5-5.0)
[2017-04-27] MEDS: ceFAZolin 2 GM PREMIX (*) 50 ML IVPB SCH ×3 (08:05→23:24)
[2017-04-27] MEDS: Phenytoin CAP(*) 100 MG CAP.ER PO SCH (08:05)
[2017-04-27] MEDS: Aspirin TAB* 325 MG PO SCH (08:05)
--- NOTE | 2017-04-27 12:08 | PN ---
Subjective Date of Service: 04/27/17 Interval History: Patient continues with complaints of pain and edema but remains non-compliant with recommendations for elevation despite change in recliner and agreement to improve compliance. Objective Active Medications: Acetaminophen (Tylenol Tab*) 650 mg PO Q4H PRN PRN Reason: FEVER/PAIN Al Hydrox/Mg Hydrox/Simethicone (Maalox Plus*) 30 ml PO Q6H PRN PRN Reason: INDIGESTION Aspirin (Aspirin Tab*) 325 mg PO DAILY [facility] Last Admin: 04/27/17 08:05 Dose: 325 mg Calcium Carbonate (Tums*) 500 mg PO Q4H PRN PRN Reason: DYSPEPSIA Docusate Sodium (Colace Cap*) 100 mg PO BID PRN PRN Reason: CONSTIPATION Last Admin: 04/26/17 09:48 Dose: 100 mg Furosemide (Lasix Iv*) 40 mg IV 0700,1700 [facility] Last Admin: 04/27/17 06:23 Dose: 40 mg Heparin Sodium (Porcine) (Heparin Vial(*)) 5,000 units SUBCUT Q8HR [facility] Last Admin: 04/27/17 06:22 Dose: 5,000 units Cefazolin Sodium/Dextrose (Kefzol 2 Gm Premix(*)) 50 mls @ 100 mls/hr IVPB Q8H [facility] Last Admin: 04/27/17 08:05 Dose: 100 mls/hr Lorazepam (Ativan Tab(*)) 1 mg PO Q4H PRN PRN Reason: ANXIETY Morphine Sulfate (Morphine Inj (Syringe)*) 4 mg IV Q4H PRN PRN Reason: PAIN Last Admin: 04/27/17 04:31 Dose: 4 mg Pto Non Formulary Med* Lidocaine 4% Topical Cream 1 admin TOPICAL QID PRN PRN Reason: LOWER EXTREMITY PAIN Last Admin: 04/23/17 10:35 Dose: 1 admin Omeprazole (Prilosec Cap*) 20 mg PO DAILY@0600 [facility] Last Admin: 04/27/17 06:23 Dose: 20 mg Ondansetron HCl (Zofran Inj*) 4 mg IV Q4H PRN PRN Reason: NAUSEA/VOMITING Oxycodone/Acetaminophen (Percocet 5/325 Tab*) 1 tab PO Q4H PRN PRN Reason: Pain Last Admin: 04/22/17 18:29 Dose: 1 tab Oxycodone/Acetaminophen (Percocet 5/325 Tab*) 2 tab PO Q4H PRN PRN Reason: PAIN - MODERATE TO SEVERE Last Admin: 04/27/17 08:04 Dose: 2 tab Phenytoin Sodium (Dilantin Cap(*)) 500 mg PO DAILY [facility] Last Admin: 04/27/17 08:05 Dose: 500 mg Polyethylene Glycol/Electrolytes (Miralax*) 17 gm PO BID PRN PRN Reason: CONSTIPATION Last Admin: 04/26/17 23:54 Dose: 17 gm Senna (Senokot Tab*) 1 tab PO BID PRN PRN Reason: CONSTIPATION Last Admin: 04/26/17 23:54 Dose: 1 tab Vital Signs: Temp Pulse Resp BP Pulse Ox 98.1 F 81 18 115/70 93 04/27/17 07:51 04/27/17 07:51 04/27/17 08:04 04/27/17 07:51 04/27/17 07:51 Oxygen Devices in Use Now: None Appearance: Well appearing elderly gentleman who perseverates on the same questions and concerns that have been addressed each of the last 3 days. Respiratory: Symmetrical Chest Expansion and Respiratory Effort, Clear to Auscultation Cardiovascular: NL Sounds; No Murmurs; No JVD, RRR Abdominal: NL Sounds; No Tenderness; No Distention Extremities: - - severe bilateral LE edema R>L Skin: - - resolving erythema of RLE with multiple open ulcerations Neurological: Alert and Oriented x 3 Result Diagrams: 04/22/17 05:30 04/27/17 06:32 Additional Lab and Data: . Diagnostic Imaging: CTA Abd/Aorta and Runoff: IMPRESSION: NO CT EVIDENCE OF SIGNIFICANT CALCIFIED PLAQUE OR HEMODYNAMICALLY SIGNIFICANT STENOSIS. DIFFUSE EDEMATOUS CHANGES IN LOWER EXTREMITIES SUGGEST VENOUS INSUFFICIENCY. Venous Doppler RLE: IMPRESSION: Subcutaneous edema overlying the right calf without femoral-popliteal deep vein thrombosis. Assess/Plan/Problems-Billing Assessment: Mr. Elizabeth is a 76 yo male with a PMH significant for chronic lymphedema ( secondary to excision of fibrosarcoma), chronic wounds, HTN, seizure disorder, and PAF who presented to the emergency room from wound care on 04/20/17 for worsening redness, swelling and ulcerations on his right lower extremity, despite being on p.o. antibiotics. - Patient Problems (1) Cellulitis of right leg Comment: With some improvement Patient presented worsening erythema, edema, and ulcerations, failed outpt levofloxacin. Wound cx from 04/17 grew pseudomonas, but ID felt that this is likely a colonization. Continue cefazolin, per ID Appreciate ID and wound care consults Patient has been declining dressing changes and foot stool for leg elevation. CTA with runoff shows no significant stenosis or calcified plaques. 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 Seizure precautions (4) Atrial fibrillation Comment: Currently in SR Paroxysmal afib Not on anticoagulation for unknown reasons (5) DVT prophylaxis Comment: SQ heparin (6) Full code status Status and Disposition: Inpatient admission. Anticipate dc in 2-3 days
[2017-04-27] MEDS: Acetaminophen TAB* 325 MG PO PRN (16:52)
[2017-04-28] MEDS: Omeprazole CAP* 20 MG PO SCH (05:55)
[2017-04-28] MEDS: Heparin VIAL(*) 5000 UNITS/ML VIAL (FIVE THOUSAND) SUBCUT SCH ×3 (05:56→21:28)
[2017-04-28] MEDS: Morphine INJ* 4 MG/ML 1 ML SYRINGE IV PRN ×2 (05:56→21:27)
[2017-04-28] MEDS: Furosemide IV* 10 MG/ML VIAL (40 MG) IV SCH ×2 (05:57→16:26)
[2017-04-28] MEDS: Phenytoin CAP(*) 100 MG CAP.ER PO SCH (08:10)
[2017-04-28] MEDS: ceFAZolin 2 GM PREMIX (*) 50 ML IVPB SCH ×2 (08:10→16:26)
[2017-04-28] MEDS: Acetaminophen TAB* 325 MG PO PRN (08:10)
[2017-04-28] MEDS: Aspirin TAB* 325 MG PO SCH (08:11)
[2017-04-28 09:17] LABS: BUN/Creatinine Ratio 25.6 (8-20); Calcium 8.7 mg/dL (8.6-10.3); EGFR African American 125.1 (>60); EGFR Non-African American 97.3 (>60)
[2017-04-28] MEDS: oxyCODONE/Acetamin 5/325 MG* TAB PO PRN ×2 (14:24→18:35)
--- NOTE | 2017-04-28 14:24 | PN ---
Subjective Date of Service: 04/28/17 Interval History: Patient reports some improvement in pain and edema. He has been more compliant with leg elevation and keeping dressings in place. Objective Active Medications: Acetaminophen (Tylenol Tab*) 650 mg PO Q4H PRN PRN Reason: FEVER/PAIN Last Admin: 04/28/17 08:10 Dose: 650 mg Al Hydrox/Mg Hydrox/Simethicone (Maalox Plus*) 30 ml PO Q6H PRN PRN Reason: INDIGESTION Aspirin (Aspirin Tab*) 325 mg PO DAILY [facility] Last Admin: 04/28/17 08:11 Dose: 325 mg Calcium Carbonate (Tums*) 500 mg PO Q4H PRN PRN Reason: DYSPEPSIA Docusate Sodium (Colace Cap*) 100 mg PO BID PRN PRN Reason: CONSTIPATION Last Admin: 04/26/17 09:48 Dose: 100 mg Furosemide (Lasix Iv*) 40 mg IV 0700,1700 [facility] Last Admin: 04/28/17 05:57 Dose: 40 mg Heparin Sodium (Porcine) (Heparin Vial(*)) 5,000 units SUBCUT Q8HR [facility] Last Admin: 04/28/17 05:56 Dose: 5,000 units Cefazolin Sodium/Dextrose (Kefzol 2 Gm Premix(*)) 50 mls @ 100 mls/hr IVPB Q8H [facility] Last Admin: 04/28/17 08:10 Dose: 100 mls/hr Lorazepam (Ativan Tab(*)) 1 mg PO Q4H PRN PRN Reason: ANXIETY Morphine Sulfate (Morphine Inj (Syringe)*) 4 mg IV Q4H PRN PRN Reason: PAIN Last Admin: 04/28/17 05:56 Dose: 4 mg Pto Non Formulary Med* Lidocaine 4% Topical Cream 1 admin TOPICAL QID PRN PRN Reason: LOWER EXTREMITY PAIN Last Admin: 04/23/17 10:35 Dose: 1 admin Omeprazole (Prilosec Cap*) 20 mg PO DAILY@0600 [facility] Last Admin: 04/28/17 05:55 Dose: 20 mg Ondansetron HCl (Zofran Inj*) 4 mg IV Q4H PRN PRN Reason: NAUSEA/VOMITING Oxycodone/Acetaminophen (Percocet 5/325 Tab*) 1 tab PO Q4H PRN PRN Reason: Pain Last Admin: 04/27/17 14:46 Dose: 1 tab Oxycodone/Acetaminophen (Percocet 5/325 Tab*) 2 tab PO Q4H PRN PRN Reason: PAIN - MODERATE TO SEVERE Last Admin: 04/27/17 21:04 Dose: 2 tab Phenytoin Sodium (Dilantin Cap(*)) 500 mg PO DAILY [facility] Last Admin: 04/28/17 08:10 Dose: 500 mg Polyethylene Glycol/Electrolytes (Miralax*) 17 gm PO BID PRN PRN Reason: CONSTIPATION Last Admin: 04/26/17 23:54 Dose: 17 gm Senna (Senokot Tab*) 1 tab PO BID PRN PRN Reason: CONSTIPATION Last Admin: 04/26/17 23:54 Dose: 1 tab Vital Signs: Temp Pulse Resp BP Pulse Ox 97.8 F 75 20 130/57 98 04/28/17 11:40 04/28/17 11:40 04/28/17 11:40 04/28/17 11:40 04/28/17 11:40 Oxygen Devices in Use Now: None Appearance: Well appearing elderly gentleman in NAD. More cooperative today. Respiratory: Symmetrical Chest Expansion and Respiratory Effort, Clear to Auscultation Cardiovascular: NL Sounds; No Murmurs; No JVD, RRR Abdominal: NL Sounds; No Tenderness; No Distention Extremities: - - severe edema, R>L with some improvement in edema in R leg Skin: - - improving erythema in RLE with dressing in place Neurological: Alert and Oriented x 3 Result Diagrams: 04/22/17 05:30 04/28/17 08:41 Additional Lab and Data: . Diagnostic Imaging: CTA Abd/Aorta and Runoff: IMPRESSION: NO CT EVIDENCE OF SIGNIFICANT CALCIFIED PLAQUE OR HEMODYNAMICALLY SIGNIFICANT STENOSIS. DIFFUSE EDEMATOUS CHANGES IN LOWER EXTREMITIES SUGGEST VENOUS INSUFFICIENCY. Venous Doppler RLE: IMPRESSION: Subcutaneous edema overlying the right calf without femoral-popliteal deep vein thrombosis. Assess/Plan/Problems-Billing Assessment: Mr. Elizabeth is a 76 yo male with a PMH significant for chronic lymphedema ( secondary to excision of fibrosarcoma), chronic wounds, HTN, seizure disorder, and PAF who presented to the emergency room from wound care on 04/20/17 for worsening redness, swelling and ulcerations on his right lower extremity, despite being on p.o. antibiotics. - Patient Problems (1) Cellulitis of right leg Comment: With some improvement Patient presented worsening erythema, edema, and ulcerations, failed outpt levofloxacin. Wound cx from 04/17 grew pseudomonas, but ID felt that this is likely a colonization. Continue cefazolin, per ID Appreciate ID and wound care consults Patient had been declining dressing changes and foot stool for leg elevation, improved compliance in the last 24 hrs CTA with runoff shows no significant stenosis or calcified plaques. 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 Seizure precautions (4) Atrial fibrillation Comment: Currently in SR Paroxysmal afib Not on anticoagulation for unknown reasons (5) DVT prophylaxis Comment: SQ heparin (6) Full code status Status and Disposition: Inpatient admission. Anticipate dc in 1-2 days
[2017-04-29] MEDS: oxyCODONE/Acetamin 5/325 MG* TAB PO PRN ×3 (00:08→13:56)
[2017-04-29] MEDS: Polyethylene Glycol 3350* 17 GM PACKET PO PRN (00:08)
[2017-04-29] MEDS: ceFAZolin 2 GM PREMIX (*) 50 ML IVPB SCH ×2 (00:08→08:24)
[2017-04-29] MEDS: Morphine INJ* 4 MG/ML 1 ML SYRINGE IV PRN (04:09)
[2017-04-29] MEDS: Omeprazole CAP* 20 MG PO SCH (06:15)
[2017-04-29] MEDS: Furosemide IV* 10 MG/ML VIAL (40 MG) IV SCH (06:16)
[2017-04-29] MEDS: Heparin VIAL(*) 5000 UNITS/ML VIAL (FIVE THOUSAND) SUBCUT SCH (06:16)
[2017-04-29] MEDS: Aspirin TAB* 325 MG PO SCH (08:24)
[2017-04-29] MEDS: Acetaminophen TAB* 325 MG PO PRN (08:25)
[2017-04-29] MEDS: Phenytoin CAP(*) 100 MG CAP.ER PO SCH (08:25)
[2017-04-29 11:28] VITALS: BP 116/60
--- NOTE | 2017-04-29 19:21 | DS ---
CC: Dr. Mcdonald; [facility]; Dr. Curry Espinoza * DATE OF ADMISSION: 04/20/17 DATE OF DISCHARGE: 04/29/17 PRIMARY CARE PROVIDER: Dr. Mcdonald. CONSULTING INFECTIOUS DISEASE: Dr. Curry Espinoza DISCHARGING PROVIDER: MILADIS Casper SUPERVISING PHYSICIAN: Dr. Timo Galan * (DICTATED BY MILADIS CASPER) PRIMARY DISCHARGE DIAGNOSES: 1. Right lower extremity cellulitis. 2. Chronic lymphedema. 3. Venous stasis ulcerations. 4. Medication noncompliance. SECONDARY DISCHARGE DIAGNOSES: 1. Atrial fibrillation. 2. Seizure disorder. DISCHARGE MEDICATIONS: 1. Aspirin 325 mg p.o. daily. 2. Keflex 500 mg p.o. t.i.d. x3 additional days. 3. Dilantin 500 mg p.o. daily. 4. Torsemide 40 mg p.o. daily. 5. Oxycodone/acetaminophen 5/325 two tablets p.o. every 4 hours as needed for pain. MEDICATION CHANGES: 1. Keflex x 3 days. 2. Start torsemide. 3. Stop Lasix. 4. Percocet p.r.n. HOSPITAL IMAGES: 1. CTA aorta with runoff shows no CT evidence of calcified plaque or hemodynamically significant stenosis. Diffuse edematous changes in lower extremities suggestive of venous insufficiency. 2. Venous Doppler study shows subcutaneous edema overlying the right calf without evidence of DVT. HOSPITAL COURSE: This is a 76-year-old gentleman with chronic lymphedema and venous stasis ulceration, who presented with complaints of right lower extremity pain and erythema referred to the Emergency Department from the Wound Clinic. Initial labs demonstrated a leukocytosis with white blood cell count of 12,300. Chemistries were unremarkable with moderately elevated CRP. Patient was afebrile. He was started on cefazolin for cellulitis. Patient has previously been established with Wound Care. Wound care nurse consulted during his hospital stay who recommended application of calcium alginate dressings covered in OptiLock and secured with Kerlix and Jermain bandages for compression. The first several days of hospital admission he refused application of any dressing whatsoever and was noncompliant with recommendation to elevate his legs, stating that it was too painful for him to stay in such a position. After several days he reluctantly agreed to light bandage changes and diuresis was initiated to help with improvement of his edema. Patient remained intermittently noncompliant throughout his hospital stay which extended his length of stay, but eventually agreed to elevate his legs the majority of the day, but was unable to tolerate compression due to pain caused by the tighter dressings. Patient's pain improved throughout his hospital stay. His edema improved to nearly symmetric to the other side, but he has severe chronic changes consistent with lymphedema. He has multiple open ulcerations over his right lower extremity which does not demonstrate any purulent drainage and his erythema had nearly resolved at the time of discharge. DISPOSITION AND FOLLOWUP PLAN: Patient is being discharged to home with the medications as noted above. He is instructed to change his dressings daily or eery other day including application of calcium alginate to the open areas, covered in OptiLock and secured with Kerlix and Jermain wraps. He receives 3 additional days of antibiotics. He was switched from Lasix to torsemide for improved diuresis. Patient requires close followup with Wound Care Clinic, as well as his primary care provider. MILADIS CASPER [id number]/[facility] #: [id number] SAMRA
== END 2017-04-29 14:15 | disposition home or self-care (01) | DRG 603 ==
LOC: ED 17:23 → MED 21:48
PROVIDERS: ADMIT Pediatrics; ATTEND Internal Medicine
DX: L03.115 Cellulitis of right lower limb (principal); Z68.42 Body mass index [BMI] 45.0-49.9, adult; I48.0 Paroxysmal atrial fibrillation; G40.909 Epilepsy, unspecified, not intractable, without status epilepticus; I83.219 Varicose veins of right lower extremity with both ulcer of unspecified site and inflammation; I89.0 Lymphedema, not elsewhere classified; F17.290 Nicotine dependence, other tobacco product, uncomplicated; E66.01 Morbid (severe) obesity due to excess calories; Z91.14 Patient's other noncompliance with medication regimen; Z85.46 Personal history of malignant neoplasm of prostate; Z79.1 Long term (current) use of non-steroidal anti-inflammatories (NSAID); Z79.82 Long term (current) use of aspirin; Z79.899 Other long term (current) drug therapy; Z96.653 Presence of artificial knee joint, bilateral; Z96.643 Presence of artificial hip joint, bilateral
CPT/HCPCS: 36415; 75635; 80048; 80053; 80185; 80202; 82550; 83605; 83735; 85025; 85610; 85652; 86140; 87040; A9270-GY; J0690; J0692; J1644; J1940; J2270; J3370; Q9967

== ENCOUNTER 2018-11-16 07:00 | Day surgery (SDC) | payer MEDICARE ==
--- NOTE | 2018-11-11 13:11 | HP ---
PREOPERATIVE HISTORY AND PHYSICAL: DATE OF ADMISSION/SURGERY: 11/16/18 [facility] DATE OF OFFICE VISIT/ENCOUNTER: 11/10/18 ATTENDING SURGEON: Candi Vale MD.* (DICTATED BYMILADIS LOA) PROCEDURE: Right middle finger partial amputation. PRIMARY CARE PHYSICIAN: Dr. Mcdonald. CHIEF COMPLAINT: Osteomyelitis, right middle finger. HISTORY OF PRESENT ILLNESS: This is a 78-year-old male who complains of swelling in his hand and drainage of his right middle finger for the past 2 months. He has neuropathy, so he is not complaining of any pain. He does not recall a specific injury, but noticed his finger bleeding about 2 months ago. He has been treated by Dr. Mcdonald in the wound clinic. He has developed significant swelling and a nonhealing wound. He has been on Keflex and just recently started taking ciprofloxacin. He has had cultures done of the wound. He had x-rays which showed osteomyelitis of the distal phalanx and DIP joint arthritis. Dr. Vale is recommending partial amputation of the finger, and the patient has consented to proceed. The patient has had a history of atrial fibrillation, treated with cardioversion, and he also has a seizure disorder. We will get medical clearance from his primary care physician, Dr. Mcdonald, prior to proceeding with surgery. PAST MEDICAL HISTORY: 1. History of atrial fibrillation, which was treated with cardioversion. 2. Benign prostatic hypertrophy. 3. Seizure disorder. 4. History of diverticulitis. 5. GERD. 6. Depression/anxiety. 7. Lymphedema. 8. History of a small DVT several years ago. PAST SURGICAL HISTORY: 1. 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 2. Hydrocele. 3. Bilateral total knee arthroplasties. 4. Bilateral total hip arthroplasties. 5. Bilateral cataract removal. MEDICATIONS: 1. Aspirin 325 mg daily. 2. Keflex 500 mg one 4 times a day. 3. Ciprofloxacin HCL 500 mg 1 twice a day. 4. Dilantin 100 mg 5 capsules every day. 5. Torsemide 20 mg daily. 6. Triamcinolone acetonide 0.1%, apply to dry skin once to twice daily. ALLERGIES: CODEINE and KETAMINE, reactions unknown. FAMILY MEDICAL HISTORY: Hypertension, stroke, cancer. SOCIAL HISTORY: The patient is retired. He is a current smoker, reports smoking cigars on occasion with varying frequency. He denies recreational drug use. He drinks alcohol on occasion. REVIEW OF SYSTEMS: General is positive for fatigue. Negative for cephalic, cardiovascular, respiratory, GI, , other musculoskeletal, integumentary, endocrine, neurologic and hematologic symptoms. Infectious Disease: Questionable for history of MRSA. Negative for hepatitis C and HIV. PHYSICAL EXAMINATION GENERAL: Well-developed, well-nourished 78-year-old male, in no acute distress. VITAL SIGNS: Height 5 feet 10 inches, weight 312 pounds. Pulse rate 64, blood pressure 146/72. HEENT: Normocephalic, atraumatic. Pupils are equal, round, and reactive to light and accommodation. Extraocular movements are intact. Throat is clear. NECK: Supple. No palpable lymph nodes. PULMONARY: Lungs are clear to auscultation bilaterally. No wheezes, rales, or rhonchi. CARDIOVASCULAR: Regular rate and rhythm. S1, S2. No murmurs, rubs or gallops. There is edema in his lower extremities secondary to lymphedema. ABDOMEN: Positive bowel sounds. Soft, nontender. NEUROLOGICAL: Alert and oriented x3. Cranial nerves II through XII are intact. Sensation is intact to light touch. MUSCULOSKELETAL: On exam of his right hand and his middle finger in particular , he has marked swelling, erythema, and a granulomatous wound at the tip of his finger. He cannot make a fist. There is no drainage. Finger nail is gone and there is cornified tissue on the top of the finger where the nail used to be. Whole hand is somewhat swollen, but no erythema. IMAGING STUDIES: X-rays - AP, lateral, and oblique of the right middle finger show osteomyelitis of the distal phalanx and DIP joint arthritis. ASSESSMENT: Right middle finger osteomyelitis. PLAN: The patient is scheduled to undergo a right middle finger partial amputation with Dr. Vale on 11/16/18. He will return to the office 10 days postop for followup and suture removal. A prescription for tramadol was e- scribed to the patient's pharmacy for postoperative pain management. MILADIS LAO [id number]/[facility] #: [id number] SAM[facility]
[~2018-11-16 07:00] MED LIST changes: -Acetaminophen TAB* 325 MG PO PRN; -Buffered Lidocaine 1% SYR 3ML* 3 ML/SYR SYRINGE INTRADERM ONE; +Buffered Lidocaine 1% SYRIN* 1 ML/SYRINGE INTRADERM ONE; -Cyclopentolate 1% OPTH.SOL* 2 ML BTL ONE; +Dexamethasone IV* 4 MG/ML 1 ML (4 MG) IV SLOW PU ONE; +Famotidine TAB* 20 MG PO ONE; -Flurbiprofen 0.03% OPTH.SOL* 2.5 ML BTL ONE; +Lactated Ringers 1000 ML Bag* 1,000 ML IV SCH; -Lidocaine 1% MPF* 2 ML VIAL ONE; -Lidocaine 2% EPI 1:200000 MPF* 20 ML VIAL ONE; -Neomycin/Polymy/Dex OPTH.SUSP* MAXITROL 0.1% 5 ML ONE; -Phenylephrine 2.5% OPTH.SOL* 2 ML BTL ONE; -Povidone Iodine 5% OPTH* 30 ML BTL ONE; -Proparacaine 0.5% OPHTH.SOL* 15 ML BTL ONE; -acetaZOLAMIDE TAB* 250 MG ONE
[2018-11-16] MEDS ORDERED: Dexamethasone IV* 4 MG/ML 1 ML (4 MG) ONE (07:13)
[2018-11-16] MEDS ORDERED: Famotidine IV* 10 MG/ML 2 ML (20 mg) ONE (07:14)
[2018-11-16] MEDS ORDERED: Midazolam* 1 MG/ML 2 ML VIAL (2 MG) ONE ×2 (07:23→08:06)
[2018-11-16] MEDS ORDERED: KETAMINE HCL* 50 MG/ML 10 ML VIAL ONE (07:23)
[2018-11-16] MEDS ORDERED: Lidocaine 1% INJ* 10 MG/ML 30 ML SDV ONE (07:32)
[2018-11-16 08:42] VITALS: BP 115/64
[2018-11-16] MEDS ORDERED: Naloxone* 0.4 MG/ML 1 ML VIAL IV PRN (08:53)
--- NOTE | 2018-11-16 15:14 | OP ---
DATE OF OPERATION: 11/16/18 [facility] DATE OF : 44 SURGEON: Candi Vale MD CONFERENCE COORDINATOR: MILADIS Nash ANESTHESIA: Local MAC. PRE-OP DIAGNOSIS: Osteomyelitis of the right long finger distal phalanx. POST-OP DIAGNOSIS: Osteomyelitis of the right long finger distal phalanx. OPERATIVE PROCEDURE: Partial amputation of the right long finger at the DIP joint. ESTIMATED BLOOD LOSS: Zero. TOURNIQUET TIME: About 15 minutes. INDICATION FOR PROCEDURE: Hector is a 78-year-old man who has neuropathy. He suffered a laceration of his right long finger about 3 months ago and developed an infection. He has on x-ray an osteomyelitis. He has failed to heal the wound with treatment in the wound clinic, presents for partial amputation of the right long finger. DESCRIPTION OF PROCEDURE: The patient was brought to the operating room, was given a sedation anesthetic and a digital block with 10 cc of 1% plain lidocaine. The skin of his right hand and forearm was prepped and draped in the usual sterile fashion. The hand and forearm were exsanguinated and the tourniquet elevated to 250 mmHg. A fishmouth incision was made just distal to the DIP flexion crease with the skin that was in good condition. The distal phalanx was removed. The flexor tendon was cut and allowed to retract. The digital arteries were cauterized with the Bovie. The articular surface of the middle phalanx was debrided with a rongeur. The wound was copiously irrigated with saline. Cultures were obtained, and then the wounds were closed in an interrupted fashion with 4-0 nylon suture. The wound was dressed with Xeroform , 4x4, Webril, and Coban. The patient tolerated the procedure well and was brought to the recovery room in good condition. [id number]/[facility] #: [id number] [facility]
== END 2018-11-16 09:00 | disposition home or self-care (01) ==
LOC: OREAST 07:00
PROVIDERS: ATTEND Orthopaedic Surgery
DX: M86.8X4 Other osteomyelitis, hand (principal); Z72.0 Tobacco use; Z85.46 Personal history of malignant neoplasm of prostate; M19.90 Unspecified osteoarthritis, unspecified site; F41.8 Other specified anxiety disorders; K21.9 Gastro-esophageal reflux disease without esophagitis; Z68.41 Body mass index [BMI] 40.0-44.9, adult
CPT/HCPCS: 87070; 87073; 87205; 88305; 88311; J1100; J2250

== ENCOUNTER 2019-06-06 15:32 | Inpatient (IN) | payer MEDICARE ==
--- NOTE | 2019-06-06 16:08 | ED ---
HPI Cardiac - HPI Summary HPI Summary: This pt is a 79 y/o male presenting to [facility] referred by his PCP for a cough x3- 4 weeks that worsens at night. Pt went to see his PCP today where he had an EKG and was noted to have afib with RVR. Pt reports associated symptoms of wheezing and fever yesterday. He denies any SOB. Denies chest pain. Pt states he sleeps on a recliner at night. PMHx includes lymphedema, seizure (his last one was in 2001). His medications include Torcemide, Dilantin, and 325 mg aspirin. Pt did take aspirin today. Pt lives at home alone. - History of Current Complaint Chief Complaint: EDDysrhythmPalp Stated Complaint: COUGH/CONGESTION PER PT Time Seen by Provider: 06/06/19 15:55 Hx Obtained From: Patient Onset/Duration: Started Weeks Ago, Still Present Timing: Lasting Weeks Current Severity: Moderate Pain Intensity: 0 Pain Scale Used: 0-10 Numeric Aggravating Factor(s): Nothing Alleviating Factor(s): Nothing Associated Signs and Symptoms: Positive: Fever - yesterday but none today, Cough , Wheezing. Negative: Chest Pain, Shortness of Breath - Additional Pertinent History Primary Care Physician: [id number] - Allergy/Home Medications Allergies/Adverse Reactions: Allergies Allergy/AdvReac Type Severity Reaction Status Date / Time ketamine Allergy Altered Verified 11/16/18 07:32 Mental Status Home Medications: Home Medications Albuterol HFA INHALER* [Ventolin HFA Inhaler*] 2 puff INH Q6H PRN 06/06/19 [ History Confirmed 06/06/19] Ibuprofen/Pseudoephedrine HCl [Advil Cold & Sinus Caplet] 1 each PO DAILY PRN [History Confirmed 06/06/19] Mirtazapine TAB* [Remeron TAB*] 15 mg PO BEDTIME 06/06/19 [History Confirmed ] PMH/Surg Hx/FS Hx/Imm Hx Endocrine/Hematology History: Reports: Hx Anticoagulant Therapy, Hx Blood Transfusions Denies: Hx Diabetes, Hx Thyroid Disease, Hx Anemia, Hx Unexplained Bleeding Cardiovascular History: Reports: Hx Deep Vein Thrombosis, Hx Peripheral Vascular Disease - lymphedema bilateral, Other Cardiovascular Problems/ Disorders - hx sepsis/ a fib Denies: Hx Aneurysm, Hx Angina, Hx Angioplasty, Hx Auto Implanted Cardiovert Defib, Hx Cardiac Arrest, Hx Cardiomegaly, Hx Congenital Heart Disease, Hx Coronary Artery Disease, Hx Hypercholesterolemia, Hx Hypertension, Hx Myocardial Infarction, Hx Pacemaker/ICD, Hx Rheumatic Fever, Hx Syncope, Hx Valvular Heart Disease Respiratory History: Reports: Hx Pneumonia Denies: Hx Asthma, Hx Chronic Obstructive Pulmonary Disease (COPD), Hx Sleep Apnea, Other Respiratory Problems/Disorders GI History: Reports: Hx Diverticulosis - sigmoid, Hx Gastroesophageal Reflux Disease - long ago, Hx Hiatal Hernia, Other GI Disorders - irregular bm Denies: Hx Cirrhosis, Hx Crohn's Disease, Hx Gall Bladder Disease History: Reports: Hx Benign Prostatic Hyperplasia, Other Problems/ Disorders - prostate CA Denies: Hx Renal Disease Musculoskeletal History: Reports: Hx Arthritis - all over, Hx Back Problems Denies: Hx Congenital Bone Abnormalities, Hx Fibromyalgia, Hx Gout, Hx Orthopedic Injury, Other Musculoskeletal History Sensory History: Reports: Hx Cataracts - laly, Hx Contacts or Glasses - glasses Denies: Hx Deafness, Hx Hearing Aid, Hx Hearing Problem, Other Sensory Impairments Opthamlomology History: Reports: Hx Cataracts - laly, Hx Contacts or Glasses - glasses Denies: Other Sensory Impairments Neurological History: Reports: Hx Seizures - last one 2001 Denies: Hx Dementia, Hx Developmental Delay, Hx Headaches, Hx Migraine, Hx Spinal Cord Injury, Hx Transient Ischemic Attacks (TIA), Other Neuro Impairments /Disorders Psychiatric History: Reports: Hx Anxiety, Hx Depression Denies: Hx Substance Abuse - Cancer History Cancer Type, 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 prostate CA Hx Chemotherapy: Yes - Surgical History Surgery Procedure, Year, and Place: LT KNEE REPLACEMENT 12/06/2012 and right 2 weeks later. HX OF BOTH HIPS REPAIR/2006 right 2010 left. RT FEMUR FIBROSARCOMA SURGERY,1965 x2. right hydrocele,, 2005 Hx Anesthesia Reactions: Yes - hiccups Infectious Disease History: No Infectious Disease History: Denies: Hx Hepatitis, Hx Human Immunodeficiency Virus (HIV), Hx Shingles, Hx Tuberculosis, Traveled Outside the [place] in Last 30 Days - Family History Known Family History: Positive: Other - Seizures Negative: Cardiac Disease - no FHx of CAD - Social History Alcohol Use: Rare Alcohol Amount: 1-2 beers Substance Use Type: Reports: None Smoking Status (MU): Current Some Day Smoker Type: Cigars Amount Used/How Often: cigars 2 in past year Review of Systems Positive: Fever - yesterday, denies any today Negative: Chest Pain Respiratory: Other - POSITIVE: wheezing Positive: Cough. Negative: Shortness Of Breath All Other Systems Reviewed And Are Negative: Yes Physical Exam - Summary Physical Exam Summary: VITAL SIGNS: Reviewed. GENERAL: Patient is a well-developed and obese male in no acute distress. HEAD AND FACE: No signs of trauma. No ecchymosis, hematomas or skull depressions. No sinus tenderness. EYES: PERRLA, EOMI x 2, No injected conjunctiva, no nystagmus. EARS: Hearing grossly intact. Ear canals and tympanic membranes are within normal limits. MOUTH: Oropharynx within normal limits. NECK: Supple, trachea is midline, no adenopathy, no JVD, no carotid bruit, no c- spine tenderness, neck with full ROM. CHEST: Symmetric, no tenderness at palpation LUNGS: Clear to auscultation bilaterally. No wheezing or crackles. CVS: Irregularly irregular rate and rhythm, S1 and S2 present, no murmurs or gallops appreciated. ABDOMEN: Soft, non-tender. No signs of distention. No rebound no guarding, and no masses palpated. Bowel sounds are normal. EXTREMITIES: Bilateral lower extremity edema, chronic lymphedema. NEURO: Alert and oriented x 3. No acute neurological deficits. Speech is normal and follows commands. SKIN: Dry and warm Triage Information Reviewed: Yes Vital Signs On Initial Exam: Initial Vitals Temp Pulse Resp BP Pulse Ox 98.3 F 188 20 128/88 95 06/06/19 15:43 06/06/19 15:43 06/06/19 15:43 06/06/19 15:43 06/06/19 15:43 Vital Signs Reviewed: Yes Diagnostics - Vital Signs Vital Signs Temp Pulse Resp BP Pulse Ox 06/06/19 15:43 98.3 F 188 20 128/88 95 - Laboratory Result Diagrams: 06/06/19 16:18 06/06/19 16:18 Lab Statement: Any lab studies that have been ordered have been reviewed, and results considered in the medical decision making process. - Radiology Chest XR Radiology Interpretation Completed By: Radiologist Summary of Radiographic Findings: IMPRESSION: No evidence for acute intrathoracic disease. Dr. Mohamud has reviewed this report. - EKG 15:50 Cardiac Rate: Tachycardia - at 138 bpm EKG Rhythm: Atrial Fibrillation Summary of EKG Findings: Atrial fibrillation with RVR at 138 bpm. Disposition - Course Assessment/Plan: Blood test results without any significant abnormality except for a slight anemia, glucose 111, alkaline phosphatase 166, and troponin 0.33 which is his baseline. EKG shows an atrial fibrillation with RVR. The patient was given Cardizem 15 mg IV. Patient continues to have tachycardia with atrial fibrillation with RVR therefore the patient was started on cardizem drip. Patient also was given a bolus of IV fluids since the blood pressure was later on the low side. At this point the patient is hemodynamically stable, alert and oriented 3. I discussed my physical exam and findings with Dr. Park, from the hospitalist services, who accepted the patient for admission. Patient is hemodynamically stable, alert and oriented 3. - Diagnoses Provider Diagnoses: Atrial fibrillation with RVR - Physician Notifications Discussed Care Of Patient With: Aron Park - hospitalist Time Discussed With Above Provider: 18:44 Instructed by Provider To: Admit As Inpatient Discharge ED - Sign-Out/Discharge Documenting (check all that apply): Patient Departure - Admit to [facility] Patient Received Moderate/Deep Sedation with Procedure: No - Discharge Plan Condition: Stable Disposition: ADMITTED TO [facility] Referrals: Gamal Mcdonald MD [Primary Care Provider] - - Billing Disposition and Condition Condition: STABLE Disposition: Admitted to [facility] - Attestation Statements Document Initiated by Kathleen: Yes Documenting Scribe: Nat Mehta Provider For Whom Krainibe is Documenting (Include Credential): Grey Mohamud MD Scribe Attestation: I, Nat Mehta, scribed for Grey Mohamud MD on 06/06/19 at 2142. Scribe Documentation Reviewed: Yes Provider Attestation: The documentation as recorded by the Nat ibrahim accurately reflects the service I personally performed and the decisions made by me, Grey Mohamud MD Status of Scribe Document: Viewed
[2019-06-06] MEDS ORDERED: NS 0.9% 500 ML* 500 ML IV ONE (16:17)
[2019-06-06] MEDS ORDERED: Diltiazem IV push/loading dose 5 MG/ML 5 ML vial (25 mg) IV SLOW PU ONE (16:17)
[2019-06-06 16:28] LABS: ABS Basophils 0.1 10^3/ul (0-0.2); ABS Eosinophils 0.8 10^3/ul (0-0.6); ABS Lymphocytes 1.6 10^3/ul (1.0-4.8); ABS Neutrophils 4.5 10^3/ul (1.5-7.7); Eosinophil % 9.9 %; Hematocrit 36 % (42-52); Hemoglobin 12.4 g/dL (14.0-18.0); Lymphocyte % 20.2 %; Mean Corpuscular HGB Conc 34 g/dL (31-36); Mean Corpuscular Hemoglobin 31 pg (27-31); Mean Corpuscular Volume 91 fL (80-94); Mean Platelet Volume 7.1 fL (7.4-10.4); Nucleated Red Blood Cells % 0.1; Platelet Count 258 10^3/uL (150-450); Red Blood Count 4.02 10^6 /uL (4.18-5.48); Red Cell Distribution Width 14 % (10-15); White Blood Count 7.9 10^3/uL (3.5-10.8)
[2019-06-06 16:38] LABS: Activated Partial Thrombo Time 36.4 seconds (26.0-38.0); INR 0.99 (0.82-1.09)
[2019-06-06 16:47] LABS: Albumin 3.6 g/dL (3.2-5.2); Anion Gap 5 mmol/L (2-11); CO2 Carbon Dioxide 28 mmol/L (22-32); Calcium 8.7 mg/dL (8.6-10.3); Chloride 103 mmol/L (101-111); Potassium 3.8 mmol/L (3.5-5.0); Sodium 136 mmol/L (135-145)
[2019-06-06 16:52] LABS: CKMB ng/mL 3.2 ng/mL (0.6-6.3)
[2019-06-06 16:53] LABS: ALT 10 U/L (7-52); AST 14 U/L (13-39); Albumin/Globulin Ratio 1.2 (1-3); Alkaline Phosphatase 166 U/L (34-104); BUN/Creatinine Ratio 19.6 (8-20); Blood Urea Nitrogen 19 mg/dL (6-24); Creatine Kinase 71 U/L (10-223); EGFR African American 90.8 (>60); Globulin 3.1 g/dL (2-4); Glucose 111 mg/dL (70-100); Total Protein 6.7 g/dL (6.4-8.9)
[2019-06-06 17:06] LABS: Troponin I 0.33 ng/mL (<0.04)
[2019-06-06 17:21] LABS: Urine Appearance Clear; Urine Bilirubin Negative (Negative); Urine Blood Negative (Negative); Urine Color Yellow; Urine Glucose Negative (Negative); Urine Ketones Negative (Negative); Urine Nitrite Negative (Negative); Urine Protein Negative (Negative); Urine Specific Gravity 1.012 (1.010-1.030); Urine Urobilinogen Negative (Negative)
[2019-06-06 18:04] LABS: TSH (Thyroid Stimulating Horm) 1.69 mcIU/mL (0.34-5.60)
[2019-06-06] MEDS ORDERED: Diltiazem IV VIAL* 125 MG in NS 0.9% 100 ML* 100 ML IV ONE (18:07)
[2019-06-06] MEDS ORDERED: Diltiazem IV BAG* D5W Premix 125 MG/125 ML BAG IV ONE (18:42)
[2019-06-06] MEDS ORDERED: NS 0.9% 1000 ML** 1,000 ML IV.FLUID IV ONE (19:04)
[2019-06-06 19:13] LABS: Troponin I 0.37 ng/mL (<0.04)
[2019-06-06] MEDS ORDERED: Albuterol HFA INHALER* 8 gm MDI INH PRN (22:34)
[2019-06-06 22:42] LABS: Troponin I 0.37 ng/mL (<0.04)
[2019-06-06] MEDS ORDERED: Diltiazem DRIP* 100 MG/100 ML ADDV.BAG IV SCH (23:00)
[2019-06-06] MEDS: Enoxaparin(*) 150 MG/ML 1 ML SYRINGE SUBCUT SCH (23:22)
--- NOTE | 2019-06-07 00:11 | HP ---
CC: Dr. Mcdonald * HISTORY AND PHYSICAL: DATE OF ADMISSION: 06/06/19 - EMERGENCY DEPT PRIMARY CARE PROVIDER: Dr. Mcdonald. CHIEF COMPLAINT: Rapid AFib. HISTORY OF PRESENT ILLNESS: Mr. Elizabeth is a 79-year-old male who has a history of paroxysmal atrial fibrillation, seizure disorder, chronic venous stasis and lymphedema of the bilateral lower extremities who presented to the emergency room with complaints of rapid AFib. The patient over the last 3 to 4 weeks has noted cough. He was seen by the CAP nurse and was complaining about his symptoms of cough, and he was set up for an appointment with Dr. Mcdonald. The patient was found to be in rapid atrial fibrillation at Dr. Mcdonald's office and was referred to the emergency room. The patient states that he cannot feel any palpitations or rapid heart rate. He denies any chest pain, shortness of breath , or lightheadedness/dizziness. The patient does have chronic left shoulder pain that radiates to his chest; however, this has been a longstanding issue and is not new. The patient does not sleep lying flat; however, this also has been a chronic issue for the patient since 2005. The patient does have chronic lower extremity edema; it is not worse than baseline. He sees Dr. Souza on a weekly basis and has zinc oxide wraps applied to his lower extremities. He states that he has no open wounds. PAST MEDICAL HISTORY: 1. Right lower extremity fibrosarcoma. 2. Seizure disorder, with last seizure in 2001. 3. Paroxysmal atrial fibrillation. 4. Chronic venous stasis changes/lymphedema of the bilateral lower extremities. PAST SURGICAL HISTORY: 1. Right thigh fibrosarcoma excision with subsequent re-excision. 2. Bilateral total knee arthroplasties. 3. Bilateral hip arthroplasties. 4. Hydrocele surgery. 5. Right middle finger partial amputation. 6. Tonsillectomy. HOME MEDICATIONS: 1. Aspirin 325 mg p.o. daily. 2. Advil Cold and Sinus 1 cap p.o. daily p.r.n. for congestion. 3. [place] 300 mg p.o. b.i.d. 4. Phenytoin 500 mg p.o. daily. 5. Mirtazapine 15 mg p.o. at bedtime. 6. Albuterol 2 puffs inhaled q.6 hours p.r.n. for shortness of breath. 7. Torsemide 20 to 40 mg daily. ALLERGIES: KETAMINE which causes altered mental status (the patient was explained that this, in fact, is a known side effect of the medication). FAMILY HISTORY: Mom at the age of 93 of old age. Dad at the age of 71; he had coronary artery disease and throat cancer. SOCIAL HISTORY: The patient formerly smoked cigars; however, he has not smoked recently. He drinks alcohol rarely. 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 He is . He has 2 children. His son, Hector Tucker, will be his healthcare proxy. REVIEW OF SYSTEMS: A complete 11-system review of systems was obtained. Pertinent positives and negatives are as per HPI and otherwise negative. PHYSICAL EXAMINATION GENERAL: The patient is a well-developed elderly male, seen sitting up in a chair, in no acute distress. VITAL SIGNS: Blood pressure 117/79, pulse 107, respirations 23, temp 98.3, O2 sat 92% on room air. HEENT: Pupils are equal and round. Extraocular muscles are intact. Oropharynx is clear. Oral mucosa is moist. NECK: There is no submandibular, cervical or supraclavicular adenopathy. Thyroid is not enlarged. No thyroid nodules noted. PULMONARY: Lungs are clear to auscultation bilaterally with few bibasilar crackles. CARDIAC: Normal S1 and S2. Heart rate is irregularly irregular and tachycardiac. ABDOMEN: Bowel sounds are present. Abdomen is soft, nontender, and nondistended. EXTREMITIES: There is marked lymphedema of the bilateral lower extremities. There are soiled wraps on the leg bilaterally. These are not due to be changed until , 06/09/19. MUSCULOSKELETAL: The patient's toes that are exposed from under the wraps are slightly erythematous. There is no cyanosis of the digits. There is full active range of motion of all 4 extremities. NEURO: Cranial nerves II through XII are grossly intact. Sensation is intact to light touch throughout. Strength is 5/5 and symmetric in both upper and lower extremities bilaterally. PSYCH: The patient is alert. He is oriented x3 and affect appears appropriate. SKIN: Wraps to the bilateral lower extremities are not removed by myself as they are not due to come off until 06/09/19. The patient states that last week when the legs were evaluated by Dr. Souza, there were no wounds. There is an approximate 2- to 3-inch area of erythema with plaque scaly-like skin in the midline at the lower thoracic and upper lumbar region. DIAGNOSTIC STUDIES/LAB DATA: Labs: WBC 7.9, hemoglobin 12.4, hematocrit 36, platelets 258. INR 0.99. Sodium 136, potassium 3.8, chloride 103, CO2 of 28, BUN 19, creatinine 0.97, glucose 111, calcium 8.7. Bilirubin 0.2, AST 14, ALT 10, alk phos 66, CPK 71. CK-MB 3.2. Troponin 0.33, up to 0.37. Albumin 3.6. TSH 1.69. Urinalysis revealed specific gravity of 1.012 and otherwise clear. EKG reveals atrial fibrillation with rapid ventricular response. Chest x-rays reveals no evidence for acute intrathoracic disease. ASSESSMENT AND PLAN: Mr. Elizabeth is a 79-year-old male with a history of paroxysmal atrial fibrillation, chronic lymphedema of the bilateral lower extremities, and seizure disorder who was sent to the emergency room from his PCP's office where he was found to be in rapid atrial fibrillation. 1. Atrial fibrillation with rapid ventricular response. At this point, the patient has been started on diltiazem drip with some improvement in his heart rate. I will go up on the diltiazem drip to 10 mg per hour. I will continue this through the night. If his heart rate comes into goal at this rate, he can be started on diltiazem 240 mg daily. If his heart rate fails to improve and blood pressure is in the normal range, I would utilize digoxin, or if his blood pressure is elevated, I could add beta moises. The patient and I discussed anticoagulation and stroke risk. His NICKOLAS-VASc2 score is 2. Because of this, the patient would benefit from anticoagulation. We discussed NOAC versus Coumadin. At this time, due to cost issues, the patient would prefer Coumadin. He will be started on Lovenox 150 mg subcutaneous twice daily. Coumadin 5 mg p.o. daily will be started tomorrow evening. The patient has done Lovenox injections in the past. The patient has been on aspirin 325 mg p.o. daily with the addition of Coumadin. I will reduce his aspirin to 81 mg p.o. daily. 2. Seizure disorder. The patient states that he has not had a seizure since 2001. He, however, does not feel comfortable coming off of Dilantin. He will continue 500 mg p.o. q.a.m. Phenytoin level has been ordered for tomorrow morning. 3. Chronic lower extremity lymphedema. The patient will continue on torsemide 20 mg p.o. daily. 4. Depression. Continue on Remeron at bedtime. 5. DVT prophylaxis. According to the Adult Thrombosis Prophylaxis Risk Factor Assessment Guide, the patient has a total risk factor score of 8, making him the highest risk. As above, he will be started on Lovenox at therapeutic dosing. This will act as his DVT prophylaxis. 10. Code status. Full. TIME SPENT: Sixty-five minutes were spent admitting this patient. [id number]/[facility] #: [id number] SAMRA
[2019-06-07 05:31] LABS: Anion Gap 6 mmol/L (2-11); BUN/Creatinine Ratio 17.8 (8-20); Blood Urea Nitrogen 16 mg/dL (6-24); CO2 Carbon Dioxide 26 mmol/L (22-32); Calcium 8.8 mg/dL (8.6-10.3); Chloride 106 mmol/L (101-111); EGFR Non-African American 81.8 (>60); Glucose 100 mg/dL (70-100); Potassium 3.8 mmol/L (3.5-5.0); Sodium 138 mmol/L (135-145)
[2019-06-07 05:38] LABS: Phenytoin 6.9 mcg/mL (10-20)
[2019-06-07 05:40] LABS: Troponin I 0.38 ng/mL (<0.04)
[2019-06-07] MEDS ORDERED: Diltiazem 125 mg in 125 mL NS (continuous infusion) IV SCH (08:00)
[2019-06-07] MEDS ORDERED: Torsemide TAB* 20 MG PO SCH (09:00)
[2019-06-07] MEDS ORDERED: Aspirin TAB* 325 MG PO SCH (09:00)
[2019-06-07] MEDS: Aspirin 81 mg CHEW TAB* 81 MG TAB.CHEW PO SCH (09:00)
[2019-06-07] MEDS: Phenytoin CAP(*) 100 MG CAP.ER PO SCH (09:00)
[2019-06-07] MEDS ORDERED: Perflutren Lipid Microsphere* 3 ML VIAL ONE (10:23)
[2019-06-07] MEDS ORDERED: Metoprolol Tartrate IV* 1 MG/ML 5 ML VIAL IV PRN (11:09)
--- NOTE | 2019-06-07 11:25 | ECHO ---
*[facility]* [place] [address] Fax #: [phone] Transthoracic Echocardiogram Patient: Hector Elizabeth : 1940 Study Date: 06/07/2019 Age: 79 Gender: M HR: 95 bpm Height: 69 in /175.3 cm BSA: 2.56 m^2 Weight: 329.3 lb /149.7 kg BMI: 48.7 kg/m^2 *Sports Writer: Amanda Chávez [facility] *Referring Physician: * Effie MontillaReading Physician: * Fer Fang MD Indications: Atrial Fibrillation. History: Lymphedema. Atrial fibrillation. Risk factors: Morbidly obese. Conclusions Summary: - Procedure narrative: Transthoracic echocardiography was performed. Image quality was poor. The study was technically limited due to poor acoustic window availability and restricted patient mobility. Intravenous Definity , 4 mlswas administered. - Left ventricle: Systolic function is mildly reduced. The estimated ejection fraction is 40-45%. Although no diagnostic regional wall motion abnormality is identified, this possibility cannot be completely excluded on the basis of this study. - Right ventricle: Systolic function is normal. - Mitral valve: There is no evidence of stenosis. There is no significant regurgitation. - Aortic valve: Not well visualized. The findings are consistent with mild stenosis. - Pericardium, extracardiac: There is no significant pericardial effusion. Study data: Transthoracic echocardiogram. Procedure: Transthoracic echocardiography was performed. Image quality was poor. The study was technically limited due to poor acoustic window availability and restricted patient mobility. Intravenous Definity , 4 mlswas administered. Complete 2D, spectral Doppler, and color flow Doppler. Location: Emergency department. Patient status: Inpatient. Patient room number: 11. Rhythm: Atrial fibrillation. Findings Left ventricle: The cavity size is normal. Wall thickness is mildly increased. Systolic function is mildly reduced. The estimated ejection fraction is 40-45%. Although no diagnostic regional wall motion abnormality is identified, this possibility cannot be completely excluded on the basis of this study. Left ventricular diastolic function parameters are indeterminate. Right ventricle: The cavity size is normal. Systolic function is normal. Left atrium: The atrium is severely dilated. Right atrium: The atrium is mildly dilated. Mitral valve: The Mitral valve annulus appears calcified. The leaflets are normal thickness. There is no evidence of stenosis. There is no significant regurgitation. Aortic valve: Not well visualized. The leaflets are mildly thickened. The findings are consistent with mild stenosis. There is no significant regurgitation. Tricuspid valve: Not well visualized. There is no significant regurgitation. Pulmonic valve: Not well visualized. There is no significant regurgitation. Aorta: The aortic root appears normal. The aortic arch appears normal. Pericardium: There is no significant pericardial effusion. Pulmonary arteries: Not well visualized. Systemic veins: Inferior vena cava: The vessel is normal in size. There is (< 50%) respiratory change in the IVC dimension. Measurements Left ventricle Value Ref Aortic valve Value Ref DAVID, LAX 4.5 cm 4.2 - 5.8 Deanne diam, ED 2.5 cm ---- ESD, LAX 3.9 cm 2.5 - 4.0 Peak v, S 1.44 m/sec ---- FS, LAX (L) 13 % 25 - 43 Peak grad, S 8.0 mm Hg ---- PW, ED, LAX (H) 1.3 cm 0.6 - 1.0 NELL, Vmax 2.08 cm^2 ---- E', lat deanne, TDI 10.2 cm/sec >=10.0 E/e', lat deanne, 9 Mitral valve Value Ref TDI Peak E 0.9 m/sec ---- E', med deanne, TDI 13.4 cm/sec >=7.0 Peak A 0.04 m/sec ---- E/e', med deanne, 7 Decel time 116 ms ---- TDI Peak grad, D 3.2 mm Hg ---- E', avg, TDI 11.8 cm/sec Peak E/A ratio 25.7 ---- E/e', avg, TDI 8 <=14 Pulmonic valve Value Ref LVOT Value Ref Peak v, S 0.62 m/sec ---- Diam, S 2.40 cm Peak grad, S 2.0 mm Hg ---- Area 4.5 cm^2 Peak italo, S 0.66 m/sec Aortic root Value Ref Root diam 3.1 cm <4.6 Ventricular septum Value Ref IVS, ED (H) 1.4 cm 0.6 - 1.0 Ascending aorta Value Ref AAo AP diam, S 3.2 cm ---- Right ventricle Value Ref ADVID, LAX 3.4 cm Aortic arch Value Ref Arch diam 2.6 cm ---- Left atrium Value Ref AP dim, ES (H) 4.80 cm 3.00 - Decending aorta Value Ref 4.00 Jimi peak italo 0.53 m/sec ---- ML dim, A4C 6.0 cm SI dim, A4C 6.2 cm Inferior vena cava Value Ref Vol/bsa, ES, 1-p (H) 50 ml/m^2 12 - 37 Diam 1.8 cm ---- A4C Right atrium Value Ref SI dim, ES (H) 5.4 cm 3.4 - 5.3 Estimated RAP 8 mm Hg Legend: (L) and (H) geronimo values outside specified reference range. Prepared and electronically signed by Fer Fang MD 06/07/2019 11:24
[2019-06-07] MEDS ORDERED: Metoprolol Tartrate TAB* 25 MG PO SCH (12:00)
[2019-06-07] MEDS ORDERED: Diltiazem TAB* 30 MG PO SCH (12:00)
--- NOTE | 2019-06-07 13:06 | PN ---
Hospitalist Progress Note Date of Service: 06/07/19 Subjective: Patient said he is feeling fine besides being tired from not being able to sleep. His only complaint is he has some abdominal pain that is relieved when he uses the bathroom. Objective: GENERAL: The patient is a well-developed elderly male, seen sitting up in a chair, in no acute distress. VITAL SIGNS: Blood pressure 100/79, pulse 11, respirations 20, temp 98, O2 sat 98% on room air. HEENT: Pupils are equal and round. Extraocular muscles are intact. Oropharynx is clear. Oral mucosa is moist. NECK: There is no submandibular, cervical or supraclavicular adenopathy. Thyroid is not enlarged. No thyroid nodules noted. PULMONARY: Lungs are clear to auscultation bilaterally. Wheezing was heard on expiration. CARDIAC: Normal S1 and S2. Heart rate is irregularly irregular. ABDOMEN: Bowel sounds are present. Abdomen is soft, nontender, and nondistended. Umbilical hernia is present. EXTREMITIES: There is marked lymphedema of the bilateral lower extremities. There are soiled wraps on the leg bilaterally. These are not due to be changed until , 06/09/19. 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 MUSCULOSKELETAL: The patient's toes that are exposed from under the wraps are slightly erythematous. There is no cyanosis of the digits. There is full active range of motion of all 4 extremities. NEURO: Cranial nerves II through XII are grossly intact. Sensation is intact to light touch throughout. Strength is weaker on the right lower extremity compared to the left. Rbc: 4.02 L Hgb: 12.4 L Hct: 36 L MPV: 7.1 L Absolute monos: 1.0 L Absolute eos: 0.8 H Troponin: 0.38 H Phenytoin= 6.9 L EKG reveals Atrial fibrillation with rapid ventricular response. Chest xrays reveal no evidence for acute intrathoracic disease. Transthoracic Echo: left ventricle systolic function is mildly reduced. The estimated ejection fraction is 40-45%. Although no diagnostic regional wall abnormality was identified. Mitral valve annulus appears calcified. Assessment: Mr. Elizabeth is a 79-year-old male who has a history of paroxysmal atrial fibrillation, seizure disorder, chronic venous stasis and lymphedema of the bilateral lower extremities who presented to the emergency room with complaints of rapid AFib. The patient over the last 3 to 4 weeks has had a noted cough. He was seen by the CAP nurse and was complaining about his symptoms of cough, and he was set up for an appointment with Dr. Mcdonald. The patient was found to be in rapid atrial fibrillation at Dr. Mcdonald's office and was referred to the emergency room. Plan: 1. Atrial fibrillation with rapid ventricular response. Possible etiologies Could be due to hyperthyroidism, infection, dehydration, volume overload or ischemia. Patient has no signs of infection, TSH changes, or volume overload so these can be ruled out. Patient is on metoprolol 5 mg IV Q6H PRN, metoprolol tab 25 mg PO Q8H. His NICKOLAS-VASc2 score is 2. Because of this, the patient would benefit from anticoagulation. He is on Lovenox 150 mg subcutaneous Q12H and Aspirin to 81 mg p.o. daily. We want his heart rate to be less than 120. 2. Elevated troponin: could be NSTEMI either type 1 (plaque rupture) or type 2 ( demand ischemia). More likely due to demand ischemia from the Atrial fibrillation. On metoprolol tartrate 5 mg IV Q6H PRN and metoprolol tab 25 mg PO Q8H. 3. Seizure disorder. The patient states that he has not had a seizure since 2001. He will continue Phenytoin 500 mg PO QAM. 4. Chronic lower extremity lymphedema. The patient was stopped on torsemide 20 mg p.o. daily. 5. Depression. Continue on Remeron 15 mg PO at bedtime. 6. DVT prophylaxis. He is on Lovenox 150 mg Q12H at therapeutic dosing.
[2019-06-07] MEDS ORDERED: Clopidogrel TAB* 300 MG PO ONE (14:02)
--- NOTE | 2019-06-07 14:18 | PN ---
Subjective Date of Service: 06/07/19 Interval History: Saw patient in ED, he had no complain of chest pain, palpitation, SOB, complained of tiredness. His heart rate went down to 100 with iv diltiazem drip, sbp borderline around 100. Objective Active Medications: Albuterol (Ventolin Hfa Inhaler*) 2 puff INH Q6H PRN PRN Reason: WHEEZING Aspirin (Aspirin 81 Mg Chew Tab*) 81 mg PO DAILY [facility] Last Admin: 06/07/19 09:00 Dose: 81 mg Clopidogrel Bisulfate (Plavix Tab*) 300 mg PO ONCE ONE Stop: 06/07/19 14:03 Enoxaparin Sodium (Lovenox(*)) 150 mg SUBCUT Q12H [facility] Last Admin: 06/06/19 23:22 Dose: 150 mg Metoprolol Tartrate (Lopressor Iv*) 5 mg IV Q6H PRN PRN Reason: BLOOD PRESSURE Metoprolol Tartrate (Lopressor Tab*) 25 mg PO Q8H [facility] Last Admin: 06/07/19 13:25 Dose: 25 mg Mirtazapine (Remeron Tab*) 15 mg PO BEDTIME [facility] Phenytoin Sodium (Dilantin Cap(*)) 500 mg PO QAM [facility] Last Admin: 06/07/19 09:00 Dose: 500 mg Vital Signs - 8 hr 06/07/19 06/07/19 06/07/19 06:11 06:15 06:26 Temperature Pulse Rate 91 87 88 Respiratory 28 17 22 Rate Blood Pressure 109/71 105/76 116/67 (mmHg) O2 Sat by Pulse 96 96 96 Oximetry 06/07/19 06/07/19 06/07/19 06:41 06:56 07:00 Temperature Pulse Rate 87 87 92 Respiratory 15 13 13 Rate Blood Pressure 113/63 111/67 (mmHg) O2 Sat by Pulse 97 100 95 Oximetry 06/07/19 06/07/19 06/07/19 07:12 07:26 07:42 Temperature Pulse Rate 94 Respiratory 17 Rate Blood Pressure 95/64 110/69 104/61 (mmHg) O2 Sat by Pulse 93 Oximetry 06/07/19 06/07/19 06/07/19 07:56 08:00 09:00 Temperature Pulse Rate Respiratory 21 14 16 Rate Blood Pressure 97/73 (mmHg) O2 Sat by Pulse Oximetry 06/07/19 06/07/19 06/07/19 09:07 09:12 09:26 Temperature Pulse Rate Respiratory 21 16 15 Rate Blood Pressure 105/73 101/60 122/74 (mmHg) O2 Sat by Pulse Oximetry 06/07/19 06/07/19 06/07/19 09:57 10:00 10:12 Temperature Pulse Rate Respiratory 15 17 21 Rate Blood Pressure 125/98 132/84 (mmHg) O2 Sat by Pulse Oximetry 06/07/19 06/07/19 06/07/19 10:17 10:27 10:44 Temperature 98.0 F Pulse Rate 98 Respiratory 16 17 26 Rate Blood Pressure 125/76 133/81 96/80 (mmHg) O2 Sat by Pulse 96 Oximetry 06/07/19 06/07/19 06/07/19 10:57 11:00 11:12 Temperature Pulse Rate Respiratory 17 15 Rate Blood Pressure 128/82 100/79 (mmHg) O2 Sat by Pulse Oximetry 06/07/19 11:51 Temperature 97.3 F Pulse Rate 111 Respiratory 20 Rate Blood Pressure 132/79 (mmHg) O2 Sat by Pulse 98 Oximetry Oxygen Devices in Use Now: None Exam: General -well, sitting on chair comfortably. Eyes - PERRLA, EOM intact HEENT- no abnormality Lymph Nodes - No lymphadenopathy Cardiovascular - RRR no m/r/g, no JVD, no carotid bruits Lungs - clear on auscultation, no use of acessory muscles, no crackles or wheezes. Skin - No rashes, skin warm and dry, no erythematous areas Abdomen - Normal bowel sounds, abdomen soft and mild tenderness. Extremities - Bilateral leg lymphedema, soiled wraps bilaterally. no cyanosis or clubbing over bilateral upper extremities. Musculo Skeletal - 5/5 strength, normal range of motion, no swollen or erythematous joints. Neurological Alert and oriented x 3, CN 2-12 grossly intact. Psychiatry- anxious, not depressed. Result Diagrams: 06/06/19 16:18 06/07/19 05:06 Assess/Plan/Problems-Billing Assessment: 79 y/o male with history of pAF, seizure disorder, bilateral lymphoedema, presented with Afib with RVR in primary care office. He was also found to have elevated Tropnin with no new ischemic changes on EKG, but he has KT score of 5 and reduced EF, which warrants early cardiac intervention and assessment. - Patient Problems (1) Atrial fibrillation with rapid ventricular response Current Visit: Yes Status: Acute Code(s): I48.91 - UNSPECIFIED ATRIAL FIBRILLATION SNOMED Code(s): 313173199069046 Comment: - started on iv diltiazem 10mg/h in ED, heart rate controlled to 100s. converted to metoprol due to borderline BP. - TTE: EF 40-45% - anticoagulation was discussed with patient, warfarin preferred as pt can's afford NOAC, bridging started at the meantime. (2) Elevated troponin Current Visit: No Status: Acute Code(s): R79.89 - OTHER SPECIFIED ABNORMAL FINDINGS OF BLOOD CHEMISTRY SNOMED Code(s): 545999618 Comment: - T2MI, KT score 5 - refer cardiology for further ischemic workup: cath vs stress test - loading dose DAPT, therapeutic dose of LWMH (3) DVT prophylaxis Current Visit: No Status: Acute Code(s): JRS6330 - SNOMED Code(s): 624037164 Comment: on therapeutic dose of Lovenox, no DVT prophylaxis needed. 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 Attestation Documenting Resident: Montse Mehta Supervising Physician: Beatriz Barbosa Attending/Supervising Physician Comment: 79 yo man with h/o afib and lymphedema admitted with afib with RVR, found to have an NSTEMI and newly depressed ef. Rate control and AC (lovenox for now; discussed noac options with him but he is very cautious about cost and prefers warfarin; will do lovenox for now until results of stress test. PE a consideration for the etiology of his rvr but no rv strain on echo or rvh on ekg and needing indefinite AC anyway. Appears euvolemic though his volume exam is challenging, no evidence of infection or other metabolic derangement. Attestation: This service has been performed in part by a resident under the direction of a teaching physician.I, Beatriz Barbosa, performed the service, or was physically present during the critical, or solorzano portions of the service, furnished by the resident. I participated in the management of the patient.
[2019-06-07] MEDS: Enoxaparin(*) 150 MG/ML 1 ML SYRINGE SUBCUT SCH ×2 (14:20→23:18)
[2019-06-07] MEDS: ALPRAZolam TAB* 0.25 MG PO PRN (14:46)
[2019-06-07] MEDS ORDERED: Aspirin 81 mg CHEW TAB* 81 MG TAB.CHEW PO STA (15:35)
[2019-06-07] MEDS ORDERED: Polyethylene Glycol 3350* 17 GM PACKET PO ONE (16:00)
[2019-06-07] MEDS ORDERED: Warfarin TAB(*) 5 MG PO SCH (17:00)
[2019-06-07] MEDS: Metoprolol Succinate XL TAB* 50 MG PO SCH (20:52)
[2019-06-07] MEDS: Mirtazapine TAB* 15 MG PO SCH (20:52)
--- NOTE | 2019-06-07 21:16 | CONS ---
CC: Dr. Beatriz Barbosa * CARDIOLOGY CONSULTATION: DATE OF CONSULT: 06/07/19 INDICATION FOR CONSULT: Atrial fibrillation, positive troponin. HISTORY OF PRESENT ILLNESS: The patient is a 79-year-old gentleman with a long history of severe lymphedema in his lower extremity, history of paroxysmal atrial fibrillation, seizure disorder, who came to the hospital because of increased cough and shortness of breath. The patient went to see his primary care physician and was found to be in rapid atrial fibrillation and was sent to the emergency room. In speaking with the patient, he was unaware of his fast heart rate. He denied any chest pain. He denied any shortness of breath. He denied any lightheadedness. The patient does have chronic lower extremity edema secondary to severe lymphedema. The patient came to the emergency room. His initial EKG showed atrial fibrillation with rapid ventricular response. He had an abnormal troponin level of 0.32, which has been steady for the last 5 measurements. PAST MEDICAL HISTORY: 1. Chronic lymphedema in his lower extremities. 2. Paroxysmal atrial fibrillation. 3. Seizure disorder. 4. The patient did have an EKG on 05/10/19, which showed that he was in normal sinus rhythm. PAST SURGICAL HISTORY: 1. Total knee arthroplasties. 2. Total hip arthroplasties. 3. Tonsillectomy. OUTPATIENT MEDICATIONS: 1. Aspirin 325 a day. 2. Advil Cold for congestion. 3. Dilantin 500 mg a day. 4. Mirtazapine 15 mg q.h.s. 5. Albuterol inhaler. 6. Torsemide 20 mg a day. ALLERGIES: To KETAMINE. FAMILY HISTORY: Mother at 93 of natural causes. Father at 71 of coronary artery disease and throat cancer. SOCIAL HISTORY: He is . 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 He has 2 children. He rarely smokes cigars. Rare alcohol intake. He does not get any physical exercise. REVIEW OF SYSTEMS: Negative for fevers and chills. Negative for change in weight. Negative for changes in bowel or bladder habits. PHYSICAL EXAM: Height is 5 feet 8 inches, weight 326 pounds, temperature 97.8, heart rate is 105, blood pressure 102/60, respiratory rate is 22. Sclerae anicteric. Oropharynx is pink without erythema. Carotids are 2+ without bruits. JVD is normal. Thyroid is normal. Cardiac Exam: Tachycardic. S1, S2 without any murmurs, rubs, or gallops. Lungs are clear to auscultation. There is no dullness to percussion. Abdomen is soft, nontender, nondistended. It is obese. No obvious hepatosplenomegaly. Extremities show severe lymphedema. He does have Jermain wraps around both lower extremities, unable to palpate pulses in his dorsalis pedis and popliteal. The patient is awake and alert, oriented. He moves all 4 extremities equally. LABORATORY DATA: CBC within normal limits. Chemistries within normal limits. BUN 19, creatinine 0.9. AST and ALT are normal. TSH is 0.69. IMPRESSION AND RECOMMENDATIONS: This is a 79-year-old gentleman, who was admitted to the hospital with atrial fibrillation with rapid ventricular response, also with positive troponins. In speaking with him, the patient has very little symptoms. For now, my recommendation is to do better rate control. I have changed him to metoprolol succinate 50 mg b.i.d. in hopes of getting better heart rate control. The patient may need some digoxin for better heart rate control. I would have to see whether it is compatible with his Dilantin. The patient does have positive troponins. It is my recommendation that the patient undergo a chemical nuclear stress test. The patient will undergo a 2D study given his size. Further recommendations pending the results of that. Given the fact that he was in normal sinus rhythm less than a month ago, I would strongly encourage evaluation for transesophageal echocardiogram cardioversion sometime during this hospitalization. [id number]/CPS #: [id number] SAMRA
[2019-06-08] MEDS ORDERED: Metoprolol Tartrate IV* 1 MG/ML 5 ML VIAL IV PRN ×2 (08:11→19:02)
[2019-06-08] MEDS: Aspirin 81 mg CHEW TAB* 81 MG TAB.CHEW PO SCH (08:20)
[2019-06-08] MEDS: Metoprolol Succinate XL TAB* 50 MG PO SCH (08:20)
[2019-06-08] MEDS: Phenytoin CAP(*) 100 MG CAP.ER PO SCH (08:20)
--- NOTE | 2019-06-08 08:25 | PN ---
Hospitalist Progress Note Date of Service: 06/08/19 Subjective: Patient said he is feeling fine and caught up on sleep but still feels a little tired. His only complaint is he has some abdominal discomfort that is relieved when he uses the bathroom. Objective: GENERAL: The patient is a well-developed elderly male, seen sitting up in a chair, in no acute distress. VITAL SIGNS: Blood pressure 131/71, pulse 99, respirations 16, temp 97.7, O2 sat 97% on room air. HEENT: Pupils are equal and round. Extraocular muscles are intact. Oropharynx is clear. Oral mucosa is moist. NECK: There is no submandibular, cervical or supraclavicular adenopathy. Thyroid is not enlarged. No thyroid nodules noted. PULMONARY: some wheezing was heard on expiration. CARDIAC: Normal S1 and S2. Heart rate is irregularly irregular. ABDOMEN: Bowel sounds are present. Abdomen is soft, nontender, and nondistended. Umbilical hernia is present. EXTREMITIES: There is marked lymphedema of the bilateral lower extremities. There are wraps on the leg bilaterally. These are not due to be changed until , 06/09/19. 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 MUSCULOSKELETAL: There is no cyanosis of the digits. There is full active range of motion of all 4 extremities. NEURO: Cranial nerves II through XII are grossly intact. Sensation is intact to light touch throughout. Troponin: 0.34 H was 0.38 H on 06/07/19 and 0.37 H on 06/06/19. EKG on 06/06/19 revealed Atrial fibrillation with rapid ventricular response. Chest xrays on 06/06/19 reveal no evidence for acute intrathoracic disease. Transthoracic Echo 06/06/19: left ventricle systolic function is mildly reduced. The estimated ejection fraction is 40-45%. Although no diagnostic regional wall abnormality was identified. Mitral valve annulus appears calcified. Assessment: Mr. Elizabeth is a 79-year-old male who has a history of paroxysmal atrial fibrillation, seizure disorder, chronic venous stasis and lymphedema of the bilateral lower extremities who presented to the emergency room with complaints of rapid AFib. The patient over the last 3 to 4 weeks has had a noted cough. He was seen by the CAP nurse and was complaining about his symptoms of cough, and he was set up for an appointment with Dr. Mcdonald. The patient was found to be in rapid atrial fibrillation at Dr. Mcdonald's office and was referred to the emergency room. Plan: 1. Atrial fibrillation with rapid ventricular response. Possible etiologies could be due to hyperthyroidism, infection, dehydration, volume overload or ischemia. Patient has no signs of infection, TSH changes, or volume overload so these can be ruled out. Patient was on IV diltiazem 10 mg/h in ED, hear rate was controlled to 100s. We changed his medication to metoprolol 5 mg IV Q6H PRN , metoprolol tab 25 mg PO BID. His NICKOLAS-VASc2 score is 2. Because of this, the patient would benefit from anticoagulation. He is on Lovenox 150 mg subcutaneous Q12H and Aspirin to 81 mg p.o. daily. We want his heart rate to be less than 120. Dr. Fang was consulted yesterday and recommended the patient undergo a chemical nuclear stress test. It would be a 2D study given his size. He also said given the fact that he was in normal sinus rhythm less than a month ago, it would be encouraged for him to have a ANT cardioversion sometime during this hospitalization. 2. Elevated troponin: Patient has a KT score of 5. Could be NSTEMI either type 1 (plaque rupture) or type 2 (demand ischemia). More likely due to demand ischemia from the Atrial fibrillation. On metoprolol tartrate 5 mg IV Q6H PRN and metoprolol tab 25 mg PO Q8H. 3. Seizure disorder. The patient states that he has not had a seizure since 2001. He will continue Phenytoin 500 mg PO QAM. 4. Chronic lower extremity lymphedema. The patient was stopped on torsemide 20 mg p.o. daily will start again tomorrow. 5. Depression. Continue on Remeron 15 mg PO at bedtime. 6. Anxiety is being treated with alprazolam 0.25 mg PO Q8H PRN. 7. DVT prophylaxis. He is on Lovenox 150 mg Q12H at therapeutic dosing
[2019-06-08 11:16] LABS: Troponin I 0.34 ng/mL (<0.04)
[2019-06-08] MEDS: Enoxaparin(*) 150 MG/ML 1 ML SYRINGE SUBCUT SCH ×2 (11:41→23:19)
[2019-06-08] MEDS ORDERED: Regadenoson* 0.4 MG/5 ML SYRINGE ONE (12:29)
[2019-06-08] MEDS ORDERED: Lorazepam PYXIS KEY ONE ×2 (12:39→13:07)
[2019-06-08] MEDS ORDERED: LORazepam INJ* 2 MG/ML 1 ML VIAL ONE ×2 (12:40→13:08)
[2019-06-08] MEDS ORDERED: Torsemide TAB* 20 MG PO ONE ×2 (15:15→15:32)
--- NOTE | 2019-06-08 15:20 | PN ---
Subjective Date of Service: 06/08/19 Interval History: Patient kept symptoms free. HR overnight in telemetry in 100-110, BP is improving to 120+. No other complains. He requested to restart back torsemide. Objective Active Medications: Albuterol (Ventolin Hfa Inhaler*) 2 puff INH Q6H PRN PRN Reason: WHEEZING Alprazolam (Xanax Tab*) 0.25 mg PO Q8H PRN PRN Reason: ANXIETY Last Admin: 06/07/19 14:46 Dose: 0.25 mg Aspirin (Aspirin 81 Mg Chew Tab*) 81 mg PO DAILY [facility] Last Admin: 06/08/19 08:20 Dose: 81 mg Enoxaparin Sodium (Lovenox(*)) 150 mg SUBCUT Q12H [facility] Last Admin: 06/08/19 11:41 Dose: 150 mg Metoprolol Succinate (Toprol Xl Tab*) 50 mg PO BID [facility] Last Admin: 06/08/19 08:20 Dose: 50 mg Metoprolol Tartrate (Lopressor Iv*) 5 mg IV Q6H PRN PRN Reason: TACHYCARDIA Mirtazapine (Remeron Tab*) 15 mg PO BEDTIME [facility] Last Admin: 06/07/19 20:52 Dose: 15 mg Phenytoin Sodium (Dilantin Cap(*)) 500 mg PO QAM [facility] Last Admin: 06/08/19 08:20 Dose: 500 mg Torsemide (Demadex*) 20 mg PO QAM [facility] Torsemide (Demadex*) 20 mg PO ONCE ONE Stop: 06/08/19 15:16 Vital Signs - 8 hr 06/08/19 06/08/19 06/08/19 07:45 11:28 14:50 Temperature 98.4 F 98.5 F 97 F Pulse Rate 96 109 83 Respiratory 20 20 20 Rate Blood Pressure 136/88 142/75 109/68 (mmHg) O2 Sat by Pulse 98 98 93 Oximetry Oxygen Devices in Use Now: None Exam: General -well, not in distress, comfortable looking. Eyes - PERRLA, EOM intact HEENT- no abnormality Lymph Nodes - No lymphadenopathy Cardiovascular -irregularly irregular, no m/r/g, no JVD, no carotid bruits Lungs - clear on auscultation, no use of acessory muscles, no crackles or wheezes. Skin - No skin warm and dry, no erythematous areas; thicken skin in bilateral legs, wrapped up partially. Abdomen - Normal bowel sounds, abdomen soft and mild tenderness. Extremities -bilateral leg lymphedema, No cyanosis or clubbing over bilateral upper extremities. Musculo Skeletal - 5/5 strength, normal range of motion, no swollen or erythematous joints. Neurological Alert and oriented x 3, CN 2-12 grossly intact. Psychiatry- anxious, not depressed. Result Diagrams: 06/08/19 10:38 06/08/19 10:38 Assess/Plan/Problems-Billing Assessment: 79 y/o male with history of pAF, seizure disorder, bilateral lymphoedema, presented with Afib with RVR in primary care office. He was also found to have elevated Tropnin with no new ischemic changes on EKG, which warrants ischemic heart disease workup. - Patient Problems (1) Atrial fibrillation with rapid ventricular response Current Visit: Yes Status: Acute Code(s): I48.91 - UNSPECIFIED ATRIAL FIBRILLATION SNOMED Code(s): 607885511834101 Comment: - started on iv diltiazem 10mg/h in ED, heart rate controlled to 100s. converted to metoprol due to borderline BP; currently rate improved - anticoagulation was discussed with patient, warfarin preferred as pt can's afford NOAC, bridging started at the meantime.Hold off warfarin now in view of potential ANT cardioversion. 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 Status and Disposition: Inpatient Medicine. Attestation Documenting Resident: Montse Mehta Supervising Physician: Beatriz Barbosa Attending/Supervising Physician Comment: Afib with RVR. Now rate controlled on metoprolol. Will start bridge with warfarin now (eliquis and xarelto and pradaxa all interact with phenytoin), possible ANT cardioversion with Dr. Delatorre. Would avoid mirtazapine given his history of seizure disorder and obesity; he does not want to discontinue it and will defer to primary. Attestation: This service has been performed in part by a resident under the direction of a teaching physician.I, Beatriz Barbosa, performed the service, or was physically present during the critical, or solorzano portions of the service, furnished by the resident. I participated in the management of the patient.
[2019-06-08] MEDS: ALPRAZolam TAB* 0.25 MG PO PRN (16:03)
[2019-06-08 16:53] LABS: Hematocrit 37 % (42-52); Hemoglobin 12.8 g/dL (14.0-18.0); Mean Corpuscular HGB Conc 35 g/dL (31-36); Mean Corpuscular Hemoglobin 32 pg (27-31); Mean Corpuscular Volume 91 fL (80-94); Mean Platelet Volume 7.7 fL (7.4-10.4); Platelet Count 274 10^3/uL (150-450); Red Blood Count 4.08 10^6 /uL (4.18-5.48); Red Cell Distribution Width 14 % (10-15); White Blood Count 6.5 10^3/uL (3.5-10.8)
[2019-06-08 17:14] LABS: Anion Gap 9 mmol/L (2-11); BUN/Creatinine Ratio 17.7 (8-20); Blood Urea Nitrogen 14 mg/dL (6-24); CO2 Carbon Dioxide 23 mmol/L (22-32); Calcium 8.8 mg/dL (8.6-10.3); Chloride 108 mmol/L (101-111); EGFR African American 115.1 (>60); EGFR Non-African American 95.1 (>60); Glucose 105 mg/dL (70-100); Potassium 4.3 mmol/L (3.5-5.0); Sodium 140 mmol/L (135-145)
--- NOTE | 2019-06-08 17:23 | PN ---
Subjective Date of Service: 06/08/19 - CC: cough, afib RVR Interval History: The patient denies awareness of palpitations/racing heart. Coughing is better. Denies SOB. Medications Active Medications: Albuterol (Ventolin Hfa Inhaler*) 2 puff INH Q6H PRN PRN Reason: WHEEZING Alprazolam (Xanax Tab*) 0.25 mg PO Q8H PRN PRN Reason: ANXIETY Last Admin: 06/08/19 16:03 Dose: 0.25 mg Aspirin (Aspirin 81 Mg Chew Tab*) 81 mg PO DAILY [facility] Last Admin: 06/08/19 08:20 Dose: 81 mg Enoxaparin Sodium (Lovenox(*)) 150 mg SUBCUT Q12H [facility] Last Admin: 06/08/19 11:41 Dose: 150 mg Metoprolol Succinate (Toprol Xl Tab*) 100 mg PO BID [facility] Metoprolol Tartrate (Lopressor Iv*) 5 mg IV Q6H PRN PRN Reason: TACHYCARDIA Last Admin: 06/08/19 16:03 Dose: 5 mg Mirtazapine (Remeron Tab*) 15 mg PO BEDTIME [facility] Last Admin: 06/07/19 20:52 Dose: 15 mg Phenytoin Sodium (Dilantin Cap(*)) 500 mg PO QAM [facility] Last Admin: 06/08/19 08:20 Dose: 500 mg Torsemide (Demadex*) 20 mg PO QAM [facility] Objective Vital Signs: Temp Pulse Resp BP Pulse Ox 97.6 F 118 25 129/69 96 06/08/19 15:14 06/08/19 15:14 06/08/19 16:03 06/08/19 15:14 06/08/19 15:14 Oxygen Devices in Use Now: None Appearance: Morbidly obese man, sitting in chair upright, smell of pseudomonas Eyes: PERRLA Ears/Nose/Mouth/Throat: Clear Oropharnyx Neck: Trachea Midline - thick neck, no appreciable increase in JVP. Respiratory: Symmetrical Chest Expansion and Respiratory Effort - Mildly diminished BS bases, overall good effort and air movement. Cardiovascular: - - irregularly irregular and tachycardic. Abdominal: - - morbidly obese, normal bowel sounds. Extremities: - - both legs in boots/wrapped. Not fully examined. Lines/Tubes/Other Access: Clean, Dry and Intact Peripheral IV Laboratory Results: 06/08/19 10:38 06/08/19 10:38 INR (Anticoag Therapy) 0.99 (0.82-1.09) 06/06/19 16:18 APTT 36.4 seconds (26.0-38.0) 06/06/19 16:18 Total Bilirubin 0.20 mg/dL (0.2-1.0) 06/06/19 16:18 AST 14 U/L (13-39) 06/06/19 16:18 ALT 10 U/L (7-52) 06/06/19 16:18 Alkaline Phosphatase 166 U/L (34-104) H 06/06/19 16:18 CK-MB (CK-2) 3.2 ng/mL (0.6-6.3) 06/06/19 16:18 Total Protein 6.7 g/dL (6.4-8.9) 06/06/19 16:18 Albumin 3.6 g/dL (3.2-5.2) 06/06/19 16:18 Globulin 3.1 g/dL (2-4) 06/06/19 16:18 Albumin/Globulin Ratio 1.2 (1-3) 06/06/19 16:18 TSH 1.69 mcIU/mL (0.34-5.60) 06/06/19 16:18 06/06/19 06/06/19 06/06/19 16:18 18:43 22:08 Troponin I 0.33 H* 0.37 H* 0.37 H* 06/07/19 06/08/19 05:06 10:38 Troponin I 0.38 H* 0.34 H* Diagnostic Imaging: *[facility]* [place] [address] Fax #: [phone] Transthoracic Echocardiogram Patient: Hector Elizabeth Summary: - Procedure narrative: Transthoracic echocardiography was performed. Image quality was poor. The study was technically limited due to poor acoustic window availability and restricted patient mobility. Intravenous Definity , 4 mlswas administered. - Left ventricle: Systolic function is mildly reduced. The estimated ejection fraction is 40-45%. Although no diagnostic regional wall motion abnormality is identified, this possibility cannot be completely excluded on the basis of this study. - Right ventricle: Systolic function is normal. - Mitral valve: There is no evidence of stenosis. There is no significant regurgitation. - Aortic valve: Not well visualized. The findings are consistent with mild stenosis. - Pericardium, extracardiac: There is no significant pericardial effusion. EKG Data: Monitor: afib, RVR, currently 117 bpm Assessment/Plan 79 yo male with coughing, found in afib, RVR, elevated troponins. PAF: Was not on anticoagulation as an out patient. The patient states that the only anticoagulant he will take is lovenox (NOACs too expensive). I recommend finding out what anticoagulant is affordable outpatient. If able to be discharged on an affordable anticoagulant then I recommend ANT guided CV (if not, safer WRT CVA to leave him in afib). Continue rate lowering agents, consider adding digoxen 1 mg load, 0.25 mg/day for additional rate control. If no sleep apnea hoff in past, high risk for this and could be triggering PAF. I recommend sleep/apnea evaluation if not recently done. Troponin bump: Differential of afib an demand/type 2 ischemia vs. large vessel CAD. 2 day stress test in progress, await results. No procedures planned for tomorrow.
[2019-06-08] MEDS: Warfarin TAB(*) 5 MG PO SCH (18:32)
[2019-06-08] MEDS ORDERED: ZINC OXIDE 12.8% (TOPICAL) 60 GM TUBE TOPICAL PRN (18:59)
[2019-06-08] MEDS: Mirtazapine TAB* 15 MG PO SCH (20:28)
[2019-06-08] MEDS: Metoprolol Succinate XL TAB* 100 MG PO SCH (20:28)
[2019-06-08] MEDS ORDERED: Metoprolol Succinate XL TAB* 50 MG PO SCH (21:00)
[2019-06-09] MEDS ORDERED: Digoxin TAB* 0.25 MG PO ONE (07:14)
[2019-06-09] MEDS: Phenytoin CAP(*) 100 MG CAP.ER PO SCH (09:09)
[2019-06-09] MEDS: Metoprolol Succinate XL TAB* 100 MG PO SCH (09:10)
[2019-06-09] MEDS: Torsemide TAB* 20 MG PO SCH (09:10)
[2019-06-09] MEDS: Enoxaparin(*) 150 MG/ML 1 ML SYRINGE SUBCUT SCH ×2 (12:12→23:35)
[2019-06-09] MEDS ORDERED: Diltiazem TAB* 30 MG PO ONE (13:25)
--- NOTE | 2019-06-09 17:07 | PN ---
Subjective Date of Service: 06/09/19 Interval History: Patient again asymptomatic though HR still in 130-140s frequently. Patient refused further investigations including Left heart cath, ANT cardioconversion suggested by submarine operator. He understood the risks related. Noted his urine soiled bilateral leg dressings for long time, advised for change , he refused as he was concerned about the inappropriate dressing put on. He has a plan to see his own change advisor for dressing change. Objective Active Medications: Albuterol (Ventolin Hfa Inhaler*) 2 puff INH Q6H PRN PRN Reason: WHEEZING Alprazolam (Xanax Tab*) 0.25 mg PO Q8H PRN PRN Reason: ANXIETY Last Admin: 06/08/19 16:03 Dose: 0.25 mg Digoxin (Lanoxin Tab*) 0.25 mg PO DAILY [facility] Diltiazem HCl (Cardizem Tab*) 30 mg PO Q6HR [facility] Enoxaparin Sodium (Lovenox(*)) 150 mg SUBCUT Q12H [facility] Last Admin: 06/09/19 12:12 Dose: 150 mg Metoprolol Succinate (Toprol Xl Tab*) 150 mg PO BID [facility] Metoprolol Tartrate (Lopressor Iv*) 5 mg IV Q6H PRN PRN Reason: TACHYCARDIA Last Admin: 06/09/19 13:43 Dose: 5 mg Mirtazapine (Remeron Tab*) 15 mg PO BEDTIME [facility] Last Admin: 06/08/19 20:28 Dose: 15 mg Phenytoin Sodium (Dilantin Cap(*)) 500 mg PO QAM [facility] Last Admin: 06/09/19 09:09 Dose: 500 mg Torsemide (Demadex*) 20 mg PO QAM [facility] Last Admin: 06/09/19 09:10 Dose: 20 mg Warfarin Sodium (Coumadin Tab(*)) 5 mg PO DAILY@1700 [facility]; Protocol Last Admin: 06/08/19 18:32 Dose: 5 mg Zinc Oxide (Triple Paste 12.8% (Topical)) 1 applic TOPICAL BID PRN PRN Reason: WOUND CARE Vital Signs - 8 hr 06/09/19 06/09/19 06/09/19 09:01 09:09 11:36 Temperature 97.3 F 97.5 F Pulse Rate 107 107 99 Respiratory 20 20 Rate Blood Pressure 115/67 111/70 (mmHg) O2 Sat by Pulse 97 95 Oximetry 06/09/19 13:49 Temperature Pulse Rate 106 Respiratory Rate Blood Pressure 125/69 (mmHg) O2 Sat by Pulse 100 Oximetry Oxygen Devices in Use Now: None Exam: General -well, not in distress, comfortable looking, urine soiled smell. Eyes - PERRLA, EOM intact HEENT- no abnormality Lymph Nodes - No lymphadenopathy Cardiovascular -irregularly irregular, fast in 130s, no m/r/g, no JVD, no carotid bruits Lungs - clear on auscultation, no use of acessory muscles, no crackles or wheezes. Skin - No skin warm and dry, no erythematous areas; thicken skin in bilateral legs, wrapped up. Abdomen - Normal bowel sounds, abdomen soft and mild tenderness. Extremities -bilateral leg lymphedema, No cyanosis or clubbing over bilateral upper extremities. Musculo Skeletal - 5/5 strength, normal range of motion, no swollen or erythematous joints. Neurological Alert and oriented x 3, CN 2-12 grossly intact. Psychiatry- anxious, not depressed. Result Diagrams: 06/08/19 10:38 06/08/19 10:38 Assess/Plan/Problems-Billing Assessment: 79 y/o male with history of pAF, seizure disorder, bilateral lymphoedema, presented with asymptomatic Afib with RVR. He was found to have reversible ischemia on stress test this admission for which he refused further cath. - Patient Problems (1) Atrial fibrillation with rapid ventricular response Current Visit: Yes Status: Acute Code(s): I48.91 - UNSPECIFIED ATRIAL FIBRILLATION SNOMED Code(s): 478850541478167 Comment: - started on iv diltiazem 10mg/h in ED, heart rate controlled to 100s. converted to metoprol due to borderline BP; added digoxin today with cardio advise, currently rate still not well controlled. - anticoagulation was discussed with patient, warfarin started. 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 Seizure precautions (5) DVT prophylaxis Current Visit: No Status: Acute Code(s): UIM4346 - SNOMED Code(s): 600563791 Comment: on therapeutic dose of Lovenox, no DVT prophylaxis needed. Status and Disposition: Inpatient Medicine. Attestation Documenting Resident: Montse Mehta Supervising Physician: Beatriz Barbosa Attending/Supervising Physician Comment: Still with uncontrolled RVR despite increasing doses of metoprolol and the addition of digoxin. Increase metoprolol dose and add cardizem. Earlier today he declined Dr. Pardo's offer for a LHC and a ANT/ cardioversion. Then this afternoon he decided he would like to proceed with the ANT/cardioversion. I have communicated this with Dr. pardo and he will try to arrange with anesthesia. Attestation: This service has been performed in part by a resident under the direction of a teaching physician.I, Beatriz Barbosa, performed the service, or was physically present during the critical, or solorzano portions of the service, furnished by the resident. I participated in the management of the patient.
[2019-06-09] MEDS: Warfarin TAB(*) 5 MG PO SCH (17:33)
[2019-06-09] MEDS: ALPRAZolam TAB* 0.25 MG PO PRN (17:33)
[2019-06-09] MEDS: Diltiazem TAB* 30 MG PO SCH ×2 (18:17→23:35)
[2019-06-09] MEDS: Metoprolol Succinate XL TAB* 50 MG PO SCH (20:47)
[2019-06-09] MEDS: Mirtazapine TAB* 15 MG PO SCH (23:35)
[2019-06-10] MEDS: Diltiazem TAB* 30 MG PO SCH ×2 (05:33→12:23)
[2019-06-10] MEDS ORDERED: Digoxin TAB* 0.25 MG PO SCH (09:00)
[2019-06-10] MEDS ORDERED: fentaNYL* 50 MCG/ML 2 ML VIAL (100 MCG VIAL) ONE (10:18)
[2019-06-10] MEDS ORDERED: Midazolam* 1 MG/ML 2 ML VIAL (2 MG) ONE (10:18)
[2019-06-10] MEDS ORDERED: KETAMINE HCL* 50 MG/ML 10 ML VIAL ONE (10:22)
[2019-06-10] MEDS ORDERED: Acetaminophen TAB* 325 MG PO PRN (10:38)
[2019-06-10] MEDS ORDERED: Buffered Lidocaine 1% SYRIN* 1 ML/SYRINGE INTRADERM ONE (10:38)
[2019-06-10] MEDS ORDERED: Naloxone* 0.4 MG/ML 1 ML VIAL IV PRN (10:38)
[2019-06-10] MEDS ORDERED: Levalbuterol 1.25MG/0.5ML NEB INH PRN (10:38)
[2019-06-10] MEDS ORDERED: Ondansetron INJ* 2 MG/ML VIAL IV PRN (10:38)
[2019-06-10] MEDS ORDERED: NS 0.9% 1000 ML** 1,000 ML IV SCH (10:45)
[2019-06-10] MEDS ORDERED: Lidocaine 2% VISCOUS* 15 ML UDC ONE (10:56)
[2019-06-10] MEDS ORDERED: Lidocaine 2% PF * 5 ML VIAL ONE (12:09)
[2019-06-10] MEDS ORDERED: Propofol* 10 MG/ML 20 ML BTL ONE (12:09)
--- NOTE | 2019-06-10 12:20 | TEE ---
*[facility]* [place] [address] Fax #: [phone] Transesophageal Echocardiogram Patient: Hector Elizabeth : 1940 Study Date: 06/10/2019 Age: 79 Gender: M HR: 148 bpm Height: 68 in /172.7 cm BSA: 2.52 m^2 Weight: 325.3 lb /147.9 kg BMI: 49.6 kg/m^2 *Bereavement Program Coordinator: * Amanda Biswas [facility] *Referring Physician: * Beatriz Barbosa *Reading Physician: * Shamar Pardo MD Indications: Atrial Fibrillation. History: Morbid obesity,lower extremity edema,venous stasis ulcers. Conclusions Summary: - Left ventricle: The estimated ejection fraction is 40-45%. - Left atrium: The atrium is severely dilated. No spontaneous echo contrast is observed. No obvious thrombus in left atrium or left atrial appendage. - Atrial septum: No defect or patent foramen ovale is identified. - Mitral valve: There is mild regurgitation. - Tricuspid valve: There is trace to mild regurgitation. Study data: Diagnostic Transesophageal Echocardiogram Consent: The risks and benefits of the procedure, including alternatives were discussed with the patient and/or their health care motor vehicle field representative and written informed consent was obtained. Procedure: Initial setup: The patient was brought to the laboratory in the fasting state.Intravenous access was obtained. Surface ECG leads, heart rate, heart rhythm, blood pressure measurements, pulse oximetric signals, and mainstream end-tidal CO2 tracings were monitored throughout the procedure. Sedation. Moderate sedation was administered by nursing staff. History and physical as well as labs were reviewed. An oral bite block was inserted for protection of oral dentition. The patient was placed in the left lateral decubitus position. Topical anesthesia was obtained using viscous lidocaine. A transesophageal probe was inserted by the attending feed miller. Transesophageal echocardiography was performed, image quality was adequate, and all standard views were attempted within the limitations of patient tolerance and safety. Multiple 2D, color flow Doppler and spectral Doppler images were obtained. The transesophageal probe was removed. Anesthesia was provided by Dr. Blankenship. Please see OR record for medications used. A bubble study was performed. Location: Procedure room. Study completion: The patient tolerated the procedure well. There were no complications. Rhythm: Atrial fibrillation. Findings Left ventricle: The cavity size is normal. Wall thickness is mildly increased. The estimated ejection fraction is 40-45%. There is no evidence of a thrombus. Transgastric views were attempted but limited in quality. Right ventricle: The cavity size is normal. Systolic function is normal. Ventricular septum: The ventricular septum is normal. Left atrium: The atrium is severely dilated. The appendage is well visualized and morphologically a left appendage. Emptying velocity is normal. No spontaneous echo contrast is observed. No obvious thrombus in left atrium or left atrial appendage. Right atrium: The atrium is normal in size. There is no evidence of a thrombus in the atrial cavity or appendage. Atrial septum: No defect or patent foramen ovale is identified. Echo contrast study shows no [id number] atrial level shunt. Mitral valve: The valve is structurally normal. There is no evidence of a vegetation. There is mild regurgitation. 2 jets noted. Aortic valve: The valve is structurally normal. The valve is trileaflet. Cusp separation is normal. There is no evidence of a vegetation. There is no evidence of stenosis. There is no regurgitation. Tricuspid valve: The valve is structurally normal. There is no evidence of a vegetation. There is trace to mild regurgitation. Pulmonic valve: The valve is structurally normal. There is no evidence of a vegetation. There is no regurgitation. Aorta: The aorta is poorly visualized. The aortic root appears normal. The aortic arch appears normal. The ascending aorta appears normal. Pericardium: There is no pericardial effusion. No evidence of pleural fluid accumulation. Pulmonary arteries: The main pulmonary artery is normal-sized. Systemic veins: Inferior vena cava: The vessel is normal in size. Superior vena cava: The vessel is appears normal. Pulmonary veins: Well visualized. The Pulmonary veins appear normal. 2 out of 4 seen. Measurements Aortic valve Value Ref Aortic root Value Ref Deanne diam, ED 2.0 cm ---- Root diam 3.0 cm <4.5 Deanne diam/bsa, ED 0.8 cm/m^2 ---- Root max diam, ED 3.0 cm <4.5 Mitral valve Value Ref Ascending aorta Value Ref Peak E 0.95 m/sec ---- AAo AP diam, S 3.0 cm ---- Decel time 245 ms ---- AAo AP diam/bsa, S 1.2 cm/m^2 ---- Peak grad, D 3.6 mm Hg ---- Legend: (L) and (H) geronimo values outside specified reference range. Prepared and electronically signed by Shamar Pardo MD 06/10/2019 12:20
--- NOTE | 2019-06-10 12:27 | CARD ---
CC: Hospitalist Service; Dr. Pardo TRANSESOPHAGEAL ECHOCARDIOGRAPHY GUIDED DIRECT CURRENT CARDIOVERSION FOR ATRIAL FIBRILLATION: DATE OF PROCEDURE: 06/10/19 INDICATIONS: The patient is a 79-year-old male patient who was admitted and in atrial fibrillation, symptomatic and rapid. A transesophageal echocardiography guided direct current cardioversion was fu rther requested. The patient's labs were reviewed. He has been maintained on Lovenox 150 mg subcu q .12 hours. Please refer to a separate anesthesia report as per Dr. Blankenship. DESCRIPTION OF PROCEDURE: After informed written consent had been obtained with continuous blood pre ssure, pulse oximetry and heart rate monitoring and the anesthesia part as per Dr. Blankenship, the patien t underwent transesophageal echocardiography. Please refer to a separate report for that, that showe d there is no evidence of clots in the left atrium or in the left atrial appendage. Subsequently, we proceeded with direct current cardioversion using synchronized 200 joules that were delivered once an d successfully converted the patient to normal sinus rhythm. There were no complications and the pat ient tolerated the procedure very well. An immediate EKG after the procedure was obtained and confir med the patient to be in normal sinus rhythm. CONCLUSION: Successful transesophageal echocardiography guided direct current cardioversion. The pa tient is in normal sinus rhythm. There were no complications. [id number]/[facility] #: [id number]
[2019-06-10] MEDS: Metoprolol Succinate XL TAB* 50 MG PO SCH (12:55)
[2019-06-10] MEDS ORDERED: Metoprolol Succinate XL TAB* 100 MG PO ONE (13:15)
--- NOTE | 2019-06-10 14:44 | PN ---
Hospitalist Progress Note Date of Service: 06/10/19 Subjective: Patient said he is feeling fine today; he has no complaints and wants to go home. Objective: VITAL SIGNS: Blood pressure 104/60, pulse 96, respirations 18, temp 96, O2 sat 94% on room air. GENERAL: The patient is a well-developed elderly male, seen sitting up in a chair, in no acute distress. HEENT: Pupils are equal and round. Extraocular muscles are intact. Oropharynx is clear. Oral mucosa is moist. NECK: There is no submandibular, cervical or supraclavicular adenopathy. Thyroid is not enlarged. No thyroid nodules noted. PULMONARY: some wheezing was heard on expiration. CARDIAC: Normal S1 and S2. Heart rate is irregularly irregular. ABDOMEN: Bowel sounds are present. Abdomen is soft, nontender, and nondistended. Umbilical hernia is present. EXTREMITIES: There is marked lymphedema of the bilateral lower extremities. There are wraps on the leg bilaterally.. 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 MUSCULOSKELETAL: There is no cyanosis of the digits. There is full active range of motion of all 4 extremities. NEURO: Cranial nerves II through XII are grossly intact. Sensation is intact to light touch throughout. Troponin: 0.34 H on 06/08/19 was 0.38 H on 06/07/19 and 0.37 H on 06/06/19. EKG on 06/06/19 revealed Atrial fibrillation with rapid ventricular response. Chest xrays on 06/06/19 reveal no evidence for acute intrathoracic disease. Transthoracic Echo 06/06/19: left ventricle systolic function is mildly reduced. The estimated ejection fraction is 40-45%. Although no diagnostic regional wall abnormality was identified. Mitral valve annulus appears calcified. Stress test 06/09/19: decreased EF of 41% and small focus of reversible hypoperfusion of the inferior wall towards the apex is suggestive of an area of ischemia. Assessment: Mr. Elizabeth is a 79-year-old male who has a history of paroxysmal atrial fibrillation, seizure disorder, chronic venous stasis and lymphedema of the bilateral lower extremities who presented to the emergency room with complaints of rapid AFib. The patient over the last 3 to 4 weeks has had a noted cough. He was seen by the CAP nurse and was complaining about his symptoms of cough, and he was set up for an appointment with Dr. Mcdonald. The patient was found to be in rapid atrial fibrillation at Dr. Mcdonald's office and was referred to the emergency room. Plan: 1. Atrial fibrillation with rapid ventricular response. Possible etiologies could be due to hyperthyroidism, infection, dehydration, volume overload or ischemia. Patient has no signs of infection, TSH changes, or volume overload so these can be ruled out. Patient is on diltiazem 30 mg PO Q6HR, metoprolol 5 mg IV Q6H PRN, metoprolol tab 150 mg PO BID. We added digoxin 0.25 mg PO daily due to cardio suggestion. His NICKOLAS-VASc2 score is 2. Because of this, the patient would benefit from anticoagulation. He is on Lovenox 150 mg subcutaneous Q12H. We want his heart rate to be less than 120. Found to have reversible ischemia on stress test. He had his ANT cardioversion done today and it was successful. An immediate EKG after the procedure was obtained and confirmed the patient to be in normal sinus rhythm. 2. Elevated troponin: Patient has a KT score of 5. Could be NSTEMI either type 1 (plaque rupture) or type 2 (demand ischemia). More likely due to demand ischemia from the Atrial fibrillation. On metoprolol tartrate 5 mg IV Q6H PRN and metoprolol tab 25 mg PO Q8H. EF was 40-45% and is on DAPT. 3. Seizure disorder. The patient states that he has not had a seizure since 2001. He will continue Phenytoin 500 mg PO QAM. 4. Chronic lower extremity lymphedema. The patient is on torsemide 20 mg p.o. daily 5. Depression. Continue on Remeron 15 mg PO at bedtime. 6. Anxiety is being treated with alprazolam 0.25 mg PO Q8H PRN. 7. DVT prophylaxis. He is on Lovenox 150 mg Q12H at therapeutic dosing and Coumadin 5 mg PO daily and zinc oxide triple paste 12.8% topical BID.
[2019-06-10] MEDS: Phenytoin CAP(*) 100 MG CAP.ER PO SCH (15:01)
[2019-06-10] MEDS: Enoxaparin(*) 150 MG/ML 1 ML SYRINGE SUBCUT SCH (15:01)
[2019-06-10] MEDS: Torsemide TAB* 20 MG PO SCH (15:01)
[2019-06-10 15:54] VITALS: BP 104/63
[2019-06-10] MEDS: Warfarin TAB(*) 5 MG PO SCH (16:17)
--- NOTE | 2019-06-10 22:38 | DS ---
CC: Dr. Mcdonald; Dr. Pardo * DISCHARGE SUMMARY: DATE OF ADMISSION: 06/06/19 DATE OF DISCHARGE: 06/10/19 PRINCIPAL DISCHARGE DIAGNOSES: 1. Atrial fibrillation with rapid ventricular response. 2. Non-ST elevation myocardial infarction. 3. Chronic systolic heart failure. SECONDARY DISCHARGE DIAGNOSES: 1. Lymphedema. 2. Seizure disorder. 3. Insomnia. MEDICATIONS AT THE TIME OF DISCHARGE: 1. Phenytoin 500 mg daily. 2. Horse chestnut seed 300 mg b.i.d. 3. Torsemide 20 mg daily. 4. Mirtazapine 50 mg q.h.s. 5. Lovenox 150 mg subcutaneously q.12 hours. 6. Toprol XL 100 mg b.i.d. 7. Warfarin 5 mg daily. 8. Atorvastatin. 9. Digoxin PHYSICAL EXAMINATION: At the time of discharge, temperature 97.3, heart rate 88 , respiratory rate 18, pulse ox 96% on room air, blood pressure 104/63. General : Alert, well-appearing man in no distress, walking in the hallways with canes. HEENT: Pupils 4 mm bilaterally and reactive to light. Oral mucosa is moist with poor dentition. Neck: No JVP, no adenopathy. Chest is in a regular rate and rhythm. Lungs are clear bilaterally. Abdomen: Obese, soft, nontender, nondistended. Extremities: Marked lymphedema with compressive dressing and wraps in place. HOSPITAL COURSE BY PROBLEM: 1. AFib with RVR. Mr. Elizabeth initially presented to Dr. Mcdonald's office with concerns for pneumonia but was found to be in AFib with RVR and was sent to the emergency department. He was treated with diltiazem, metoprolol, digoxin, and ultimately Cardiology was consulted for further management and they recommended a ANT with cardioversion. A ANT with cardioversion was performed on 06/10/19 with successful conversion to normal sinus rhythm. He was educated extensively over the importance of therapeutic anticoagulation for at least 6 weeks after the cardioversion. He was concerned about the cost of NOAC and this was confirmed with his pharmacy, so he is being discharged on Lovenox and warfarin bridge. He has an appointment with Dr. Mcdonald's office on Thursday at 11 a.m. for an INR check and they accepted him as a patient in their INR clinic and they will follow his INR with a goal of 2 to 3. I instructed him that he only must take the Lovenox until his INR is above 2 and that he should be in touch with Dr. Mcdonald's office to help manage this. 2. NSTEMI. Mr. Elizabeth never had chest pain during this time; however, he did have a positive troponin and it was unclear if this was a type 1 or type 2 NSTEMI. Cardiology did recommend a stress test and it was positive. He had an area of reversible ischemia on a nuclear stress test from 06/09/19. The small focus of reversible hypoperfusion was in the inferior wall towards the apex. Dr. Pardo offered a left heart catheterization; however, Mr. Elizabeth declined it. He was instead continued on medical management with metoprolol and atorvastatin. 3. Chronic systolic heart failure. An echocardiogram was obtained at admission and showed an ejection fraction of 40% to 45% with normal RV systolic function, mild aortic stenosis. He was not thought to be in decompensated heart failure and was continued on his home dose of torsemide. 4. Lymphedema. His dressings were changed during this admission. 5. Seizure disorder. He was continued on phenytoin. 6. Insomnia. He was continued on his home dose of mirtazapine that was questioned due to his history of seizures and obesity; however, since he had not had a seizure for almost 20 years and has been well controlled on mirtazapine for a long time, so we continued it. DISPOSITION: Mr. Elizabeth is discharged to home on 06/10/19. He has followup with Dr. Mcdonald for an INR check and also is instructed to call Cardiology to get an appointment within the next 2 weeks. We attempted meds to beds but our pharmacy does not partner with his insurance. 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 Disposition at the time of discharge is stable. [id number]/[facility] #: [id number] SAMRA
== END 2019-06-10 18:09 | disposition home or self-care (01) | DRG 281 ==
LOC: ED 15:32 → MEDTELE 22:32 → OBSVTOIN 06-07 16:00
PROVIDERS: ADMIT Hospitalist; ATTEND Internal Medicine
PROC: 4A02XM4 Measurement of Cardiac Total Activity, External Approach (ICD-10-PCS; 2019-06-08)
PROC: 3E073KZ Introduction of Other Diagnostic Substance into Coronary Artery, Percutaneous Approach (ICD-10-PCS; 2019-06-08)
PROC: B24BZZ4 Ultrasonography of Heart with Aorta, Transesophageal (ICD-10-PCS; 2019-06-10)
PROC: 5A2204Z Restoration of Cardiac Rhythm, Single (ICD-10-PCS; principal; 2019-06-10 10:30)
DX: I48.0 Paroxysmal atrial fibrillation (principal); I21.A1 Myocardial infarction type 2; Z68.42 Body mass index [BMI] 45.0-49.9, adult; I50.22 Chronic systolic (congestive) heart failure; G40.909 Epilepsy, unspecified, not intractable, without status epilepticus; I87.8 Other specified disorders of veins; I89.0 Lymphedema, not elsewhere classified; G89.29 Other chronic pain; M25.512 Pain in left shoulder; Z96.653 Presence of artificial knee joint, bilateral; Z96.643 Presence of artificial hip joint, bilateral; F32.9 Major depressive disorder, single episode, unspecified; I73.9 Peripheral vascular disease, unspecified; K21.9 Gastro-esophageal reflux disease without esophagitis; N40.0 Benign prostatic hyperplasia without lower urinary tract symptoms; M19.90 Unspecified osteoarthritis, unspecified site; F41.9 Anxiety disorder, unspecified; H26.9 Unspecified cataract; G47.00 Insomnia, unspecified; E66.01 Morbid (severe) obesity due to excess calories; Z89.021 Acquired absence of right finger(s); Z88.4 Allergy status to anesthetic agent; Z79.01 Long term (current) use of anticoagulants; Z82.49 Family history of ischemic heart disease and other diseases of the circulatory system; Z80.8 Family history of malignant neoplasm of other organs or systems; Z87.891 Personal history of nicotine dependence; Z86.718 Personal history of other venous thrombosis and embolism; Z87.01 Personal history of pneumonia (recurrent); Z85.46 Personal history of malignant neoplasm of prostate
CPT/HCPCS: 36415; 71045; 78452; 80048; 80053; 80185; 81003; 82550; 82553; 84443; 84484; 85025; 85027; 85610; 85730; 93005; 93017; 93306; 93312; 93325; 96374; 96375; 99285; A9270-GY; A9502; C8929; J1650; J2060; J2250; J2704; J2785; J3010; J3490

== ENCOUNTER 2019-09-05 10:36 | Day surgery (SDC) | payer MEDICARE ==
[~2019-09-05 10:36] MED LIST changes: -Dexamethasone IV* 4 MG/ML 1 ML (4 MG) IV SLOW PU ONE; +Famotidine IV* 10 MG/ML 2 ML (20 mg) IV ONE; -Famotidine TAB* 20 MG PO ONE
[2019-09-05] MEDS ORDERED: ceFAZolin 2 GM in NS PREMIX(*) 2 GM/100 ML BAG IVPB ONE (10:59)
[2019-09-05] MEDS ORDERED: Famotidine IV* 10 MG/ML 2 ML (20 mg) ONE (10:59)
[2019-09-05] MEDS ORDERED: Buffered Lidocaine 1% SYRIN* 1 ML/SYRINGE INTRADERM ONE (10:59)
[2019-09-05] MEDS ORDERED: Dexamethasone IV* 4 MG/ML 1 ML (4 MG) ONE (13:04)
[2019-09-05] MEDS ORDERED: Propofol* 10 MG/ML 20 ML BTL ONE (13:04)
[2019-09-05] MEDS ORDERED: Lidocaine 2% PF * 5 ML VIAL ONE (13:04)
[2019-09-05] MEDS ORDERED: Phenylephrine 10 MG/ML VIAL* 1 ML VIAL ONE (13:04)
[2019-09-05] MEDS ORDERED: Ondansetron INJ* 2 MG/ML VIAL ONE (13:04)
[2019-09-05] MEDS ORDERED: Rocuronium* 10 MG/ML VIAL ONE ×2 (13:05→14:43)
[2019-09-05] MEDS ORDERED: fentaNYL* 50 MCG/ML 2 ML VIAL (100 MCG VIAL) ONE ×2 (13:05→16:32)
[2019-09-05] MEDS ORDERED: Midazolam* 1 MG/ML 5 ML VIAL (5 MG) ONE (13:09)
[2019-09-05] MEDS ORDERED: KETAMINE HCL* 50 MG/ML 10 ML VIAL ONE (13:10)
[2019-09-05] MEDS ORDERED: Bupivacaine 0.5%* 50 ML MDV VIAL ONE (13:42)
[2019-09-05] MEDS ORDERED: ceFAZolin 1 GM ADVAN(*) 1 GM ADDV.VIAL IVPB ONE (14:00)
[2019-09-05] MEDS ORDERED: Bacitracin OINTMENT* 0.5% 0.5 oz TUBE ONE (15:37)
[2019-09-05] MEDS ORDERED: Ketorolac INJ* 30 MG/ML 1 ML VIAL ONE (15:38)
[2019-09-05] MEDS ORDERED: Naloxone* 0.4 MG/ML 1 ML VIAL IV PRN (16:32)
[2019-09-05] MEDS ORDERED: Ondansetron INJ* 2 MG/ML VIAL IV PRN (16:32)
[2019-09-05] MEDS ORDERED: fentaNYL* 50 MCG/ML 2 ML VIAL (100 MCG VIAL) IV PRN (16:32)
[2019-09-05 18:05] VITALS: BP 104/62
--- NOTE | 2019-09-06 04:16 | OP ---
OPERATIVE REPORT: DATE OF OPERATION: 09/05/19 - SDS DATE OF : 44 SURGEON: Rajesh Ortiz MD PERSONAL PROTECTION SPECIALIST: SHY Durant ANESTHESIOLOGIST: Jamal Sandoval MD ANESTHESIA: General. PRE-OPERATIVE DIAGNOSIS: Incarcerated umbilical hernia. POST-OPERATIVE DIAGNOSIS: Incarcerated umbilical hernia. OPERATIVE PROCEDURE: Repair of incarcerated umbilical hernia with mesh. INDICATIONS: Incarcerated umbilical hernia. Risks include but not limited to bleeding, infection, recurrence of the hernia, injury to intraabdominal contents including the bowel, all discussed with the patient who seemed to understand and agreed to the procedure and all questions were answered. DESCRIPTION OF PROCEDURE: The patient was taken to the operating room and placed supine. Preoperative antibiotics were given. After successful induction of general endotracheal anesthesia, the abdomen was prepped and draped in sterile fashion. Time-out was performed indicating correct patient and the correct procedure. A left upper quadrant trocar was placed under direct visualization of the camera using a bladeless Optiview trocar. Pneumoperitoneum was achieved to 12 mmHg. Camera was placed in the abdomen. The abdomen was scanned. No obvious injury from trocar was noted. Two more 8 mm trocars were placed in line along the left side of the abdomen and a 5 mm trocar was placed with an 8 mm trocar. Incarcerated omentum was bluntly removed from the defect and had to be sharply divided with scissors and cautery from the peritoneum. The peritoneum was then opened along the left lateral aspect. The flap was made bending towards the umbilical defect. A large lipoma and hernia sac was removed from the umbilical hernia. The defect was then closed with a running 0 PDS Stratafix suture once the pressure was dropped to 9 mmHg in the abdomen. A size medium Ventralex patch was then brought into the abdomen and sutured up to the anterior abdominal wall using the PDS suture as well as a 3-0 V-Loc suture, which was also used to close the peritoneal flap. EBL was minimal. Hemostasis was then checked. The abdomen was scanned. There was no obvious injury on trocar placement. All needles were removed from the abdomen. Pneumoperitoneum was released from the abdomen and the trocars were removed and the skin was closed with 3-0 Monocryl and glue. The patient was extubated and taken to recovery room in stable condition. [id number]/[facility] #: [id number] [facility]
== END 2019-09-05 17:56 | disposition home or self-care (01) ==
LOC: OR 10:36
PROVIDERS: ATTEND Surgery
DX: K42.0 Umbilical hernia with obstruction, without gangrene (principal); I25.10 Atherosclerotic heart disease of native coronary artery without angina pectoris; I25.2 Old myocardial infarction; K21.9 Gastro-esophageal reflux disease without esophagitis; M15.9 Polyosteoarthritis, unspecified; F41.8 Other specified anxiety disorders; I48.91 Unspecified atrial fibrillation; Z85.46 Personal history of malignant neoplasm of prostate; Z87.891 Personal history of nicotine dependence; Z79.82 Long term (current) use of aspirin; Z79.01 Long term (current) use of anticoagulants; Z96.653 Presence of artificial knee joint, bilateral; Z96.643 Presence of artificial hip joint, bilateral
CPT/HCPCS: A9270-GY; C1781; J0690; J1100; J1885; J2250; J2405; J2704; J3010; J3490

== ENCOUNTER 2020-08-31 18:03 | Observation (INO) ==
[2020-08-31 20:06] LABS: ABS Eosinophils 0.1 10^3/ul (0-0.6); ABS Lymphocytes 1.8 10^3/ul (1.0-4.8); ABS Monocytes 0.7 10^3/ul (0-0.8); ABS Neutrophils 6.9 10^3/ul (1.5-7.7); Eosinophil % 0.9 %; Hematocrit 36 % (42-52); Hemoglobin 12.5 g/dL (14.0-18.0); Lymphocyte % 18.5 %; Mean Corpuscular HGB Conc 35 g/dL (31-36); Mean Corpuscular Hemoglobin 33 pg (27-31); Mean Corpuscular Volume 94 fL (80-94); Mean Platelet Volume 7.1 fL (7.4-10.4); Platelet Count 215 10^3/uL (150-450); Red Blood Count 3.77 10^6 /uL (4.18-5.48); Red Cell Distribution Width 13 % (10-15); White Blood Count 9.5 10^3/uL (3.5-10.8)
[2020-08-31 20:09] LABS: Urine Appearance Clear; Urine Bilirubin Negative (Negative); Urine Blood 1+ (Negative); Urine Color Yellow; Urine Glucose Negative (Negative); Urine Ketones Negative (Negative); Urine Nitrite Negative (Negative); Urine Protein Negative (Negative); Urine Specific Gravity 1.009 (1.010-1.030); Urine Urobilinogen Negative (Negative)
[2020-08-31 20:14] LABS: Urine Bacteria Absent (Absent); Urine Red Blood Cell Absent (Absent); Urine White Blood Cell Trace(0-5/hpf) (Absent)
[2020-08-31 20:23] LABS: ALT 12 U/L (7-52); AST 15 U/L (13-39); Albumin 3.7 g/dL (3.2-5.2); Albumin/Globulin Ratio 1.2 (1-3); Alkaline Phosphatase 148 U/L (34-104); Anion Gap 8 mmol/L (2-11); BUN/Creatinine Ratio 29.1 (8-20); Blood Urea Nitrogen 25 mg/dL (6-24); CO2 Carbon Dioxide 27 mmol/L (22-32); Calcium 8.9 mg/dL (8.6-10.3); Chloride 100 mmol/L (101-111); EGFR African American 104.1 (>60); Globulin 3.1 g/dL (2-4); Glucose 93 mg/dL (70-100); Potassium 3.9 mmol/L (3.5-5.0); Sodium 135 mmol/L (135-145); Total Protein 6.8 g/dL (6.4-8.9)
[2020-08-31 20:25] LABS: INR 1.42 (0.82-1.09)
[2020-08-31 20:26] LABS: Troponin I 0.31 ng/mL (<0.03)
[2020-08-31] MEDS ORDERED: Albuterol HFA INHALER 8 gm MDI INH PRN (23:37)
[2020-08-31] MEDS ORDERED: Enoxaparin 40 MG/0.4 ML SYR SUBCUT SCH (23:45)
[2020-08-31 23:46] LABS: Troponin I 0.35 ng/mL (<0.03)
[2020-09-01 00:05] LABS: Phenytoin 7.5 mcg/mL (10-20)
[2020-09-01 00:20] LABS: TSH Ultra Thyroid Stim Horm 1.29 mcIU/mL (0.34-5.60)
[2020-09-01 07:57] LABS: ABS Eosinophils 0.1 10^3/ul (0-0.6); ABS Lymphocytes 1.6 10^3/ul (1.0-4.8); ABS Monocytes 0.8 10^3/ul (0-0.8); ABS Neutrophils 6.9 10^3/ul (1.5-7.7); Eosinophil % 1.3 %; Hematocrit 36 % (42-52); Hemoglobin 12.4 g/dL (14.0-18.0); Mean Corpuscular HGB Conc 35 g/dL (31-36); Mean Corpuscular Hemoglobin 33 pg (27-31); Mean Corpuscular Volume 95 fL (80-94); Mean Platelet Volume 7.1 fL (7.4-10.4); Platelet Count 206 10^3/uL (150-450); Red Cell Distribution Width 13 % (10-15); White Blood Count 9.4 10^3/uL (3.5-10.8)
[2020-09-01 08:07] LABS: INR 1.46 (0.82-1.09)
[2020-09-01 08:15] LABS: BUN/Creatinine Ratio 25.9 (8-20); Calcium 8.8 mg/dL (8.6-10.3); EGFR African American 111.5 (>60); EGFR Non-African American 92.2 (>60); Potassium 3.6 mmol/L (3.5-5.0)
[2020-09-01 08:21] LABS: HDL Cholesterol 53.3 mg/dL
[2020-09-01] MEDS ORDERED: Pneumococcal Vac 23-Polyvalent IM ONE (09:00)
[2020-09-01 15:24] VITALS: BP 108/70
[2020-09-01] MEDS ORDERED: Iohexol 350 (CONTRAST) 500 ML MDV IV ONE (16:08)
[2020-09-01] MEDS ORDERED: Warfarin DAILY REMINDER **NOTE FOLLOW UP SCH (17:00)
== END 2020-09-01 17:51 | disposition home or self-care (01) ==
LOC: MEDTELE 18:03 → ED 18:03 → MEDTELE 09-01 00:46
PROVIDERS: ADMIT Internal Medicine; ATTEND Student in an Organized Health Care Education/Training Program

== ENCOUNTER 2021-04-18 17:28 | Inpatient (IN) ==
[2021-04-18] MEDS ORDERED: Vancomycin 1,500 MG in NS 0.9% 250 ml 250 ML IVPB ONE (20:31)
[2021-04-18] MEDS ORDERED: oxyCODONE/Acetamin 5/325 mg TAB PO ONE (20:37)
[2021-04-18 22:18] LABS: ABS Lymphocytes 1.1 10^3/ul (1.0-4.8); ABS Monocytes 1.3 10^3/ul (0-0.8); ABS Neutrophils 12.8 10^3/ul (1.5-7.7); Eosinophil % 0.1 %; Hematocrit 36 % (42-52); Hemoglobin 12.4 g/dL (14.0-18.0); Lymphocyte % 7.6 %; Mean Corpuscular HGB Conc 34 g/dL (31-36); Mean Corpuscular Hemoglobin 32 pg (27-31); Mean Corpuscular Volume 93 fL (80-94); Mean Platelet Volume 7.1 fL (7.4-10.4); Platelet Count 223 10^3/uL (150-450); Red Blood Count 3.89 10^6 /uL (4.18-5.48); Red Cell Distribution Width 14 % (10-15); White Blood Count 15.2 10^3/uL (3.5-10.8)
[2021-04-18 22:41] LABS: ALT 20 U/L (7-52); AST 35 U/L (13-39); Albumin 4.1 g/dL (3.2-5.2); Albumin/Globulin Ratio 1.3 (1-3); Alcohol, S < 13 mg/dL (<10); Alkaline Phosphatase 138 U/L (35-149); Anion Gap 7 mmol/L (2-11); Blood Urea Nitrogen 20 mg/dL (6-24); CO2 Carbon Dioxide 28 mmol/L (22-32); Chloride 98 mmol/L (101-111); EGFR African American 87.4 (>60); EGFR Non-African American 72.3 (>60); Globulin 3.2 g/dL (2-4); Glucose 131 mg/dL (70-100); Potassium 4.1 mmol/L (3.5-5.0); Sodium 133 mmol/L (135-145); Total Protein 7.3 g/dL (6.4-8.9)
[2021-04-18 22:42] LABS: Urine Appearance Clear; Urine Bilirubin Negative (Negative); Urine Blood 1+ (Negative); Urine Color Yellow; Urine Glucose Negative (Negative); Urine Ketones Negative (Negative); Urine Nitrite Negative (Negative); Urine Protein 1+(30 mg/dL) (Negative); Urine Specific Gravity 1.019 (1.002-1.030); Urine Urobilinogen Negative (Negative)
[2021-04-18 22:44] LABS: INR 2.02 (0.86-1.15)
[2021-04-18 22:45] LABS: Troponin I 0.51 ng/mL (<0.03)
[2021-04-18 22:54] LABS: TSH Ultra Thyroid Stim Horm 0.81 mcIU/mL (0.34-5.60)
[2021-04-18] MEDS ORDERED: Albuterol HFA INHALER 8 gm MDI INH PRN (23:22)
[2021-04-18 23:29] LABS: Urine Bacteria Absent (Absent); Urine Red Blood Cell 2+(6-10/hpf) (Absent); Urine White Blood Cell Absent (Absent)
[2021-04-19 00:45] LABS: Creatine Kinase 1349 U/L (10-223)
[2021-04-19] MEDS: cefTRIAXone 1 gm/50 mL NS BAG 1 GM/50 ML BAG IVPB SCH (02:04)
[2021-04-19] MEDS ORDERED: NS 0.9% 1000 ml BAG 1,000 ML IV SCH (03:15)
[2021-04-19] MEDS: Nystatin TOP POWDER 15 GM BTL TOPICAL SCH ×4 (05:06→21:40)
[2021-04-19 05:19] LABS: ABS Eosinophils 0.1 10^3/ul (0-0.6); ABS Lymphocytes 1.2 10^3/ul (1.0-4.8); ABS Monocytes 1.1 10^3/ul (0-0.8); ABS Neutrophils 7.7 10^3/ul (1.5-7.7); Eosinophil % 1.5 %; Hematocrit 33 % (42-52); Hemoglobin 11.6 g/dL (14.0-18.0); Lymphocyte % 11.5 %; Mean Corpuscular HGB Conc 35 g/dL (31-36); Mean Corpuscular Hemoglobin 33 pg (27-31); Mean Corpuscular Volume 93 fL (80-94); Mean Platelet Volume 7.3 fL (7.4-10.4); Platelet Count 189 10^3/uL (150-450); Red Blood Count 3.52 10^6 /uL (4.18-5.48); Red Cell Distribution Width 14 % (10-15); White Blood Count 10.1 10^3/uL (3.5-10.8)
[2021-04-19 05:24] LABS: Anion Gap 7 mmol/L (2-11); Blood Urea Nitrogen 21 mg/dL (6-24); CO2 Carbon Dioxide 27 mmol/L (22-32); Calcium 8.4 mg/dL (8.6-10.3); Chloride 100 mmol/L (101-111); EGFR African American 93.9 (>60); EGFR Non-African American 77.6 (>60); Glucose 128 mg/dL (70-100); Potassium 3.5 mmol/L (3.5-5.0); Sodium 134 mmol/L (135-145)
[2021-04-19 05:45] LABS: Creatine Kinase 2596 U/L (10-223)
[2021-04-19] MEDS: NS 0.9% 1000 ml BAG 1,000 ML IV SCH ×2 (06:58→18:32)
[2021-04-19] MEDS: Phenytoin 100 mg ER CAP PO SCH (10:19)
[2021-04-19] MEDS ORDERED: Perflutren Lipid Microsphere 3 ML VIAL ONE (11:12)
[2021-04-19] MEDS: Warfarin DAILY REMINDER **NOTE FOLLOW UP SCH (16:58)
[2021-04-19] MEDS ORDERED: Magnesium Hydroxide LIQ 30 ML UDC PO PRN (21:09)
[2021-04-19] MEDS ORDERED: Senna TAB 8.6 mg TAB PO PRN (21:09)
[2021-04-19] MEDS ORDERED: Polyethylene Glycol 3350 17 GM PACKET PO PRN (21:09)
[2021-04-20] MEDS: cefTRIAXone 1 gm/50 mL NS BAG 1 GM/50 ML BAG IVPB SCH (00:44)
[2021-04-20 08:49] LABS: ABS Eosinophils 0.3 10^3/ul (0-0.6); ABS Lymphocytes 1.6 10^3/ul (1.0-4.8); ABS Monocytes 0.7 10^3/ul (0-0.8); ABS Neutrophils 5.8 10^3/ul (1.5-7.7); Eosinophil % 3.8 %; Hematocrit 35 % (42-52); Hemoglobin 11.6 g/dL (14.0-18.0); Lymphocyte % 19.2 %; Mean Corpuscular HGB Conc 34 g/dL (31-36); Mean Corpuscular Hemoglobin 32 pg (27-31); Mean Corpuscular Volume 95 fL (80-94); Mean Platelet Volume 7.3 fL (7.4-10.4); Platelet Count 204 10^3/uL (150-450); Red Blood Count 3.64 10^6 /uL (4.18-5.48); Red Cell Distribution Width 14 % (10-15); White Blood Count 8.4 10^3/uL (3.5-10.8)
[2021-04-20] MEDS: Phenytoin 100 mg ER CAP PO SCH (09:44)
[2021-04-20] MEDS ORDERED: Iohexol 300 (CONTRAST) 10 ML SDV IV ONE (09:49)
[2021-04-20] MEDS: Nystatin TOP POWDER 15 GM BTL TOPICAL SCH ×2 (14:03→20:16)
[2021-04-20 16:09] LABS: C Reactive Protein 192.87 mg/L (<8.01)
[2021-04-20] MEDS: Warfarin DAILY REMINDER **NOTE FOLLOW UP SCH (16:41)
[2021-04-20 17:02] LABS: Erythrocyte Sed Rate 48 mm/Hr (0-19)
[2021-04-21] MEDS: cefTRIAXone 1 gm/50 mL NS BAG 1 GM/50 ML BAG IVPB SCH (00:21)
[2021-04-21 06:17] LABS: INR 1.62 (0.86-1.15)
[2021-04-21 06:21] LABS: Calcium 8.6 mg/dL (8.6-10.3); EGFR African American 92.8 (>60); EGFR Non-African American 76.7 (>60); Potassium 3.5 mmol/L (3.5-5.0)
[2021-04-21] MEDS: Phenytoin 100 mg ER CAP PO SCH (10:15)
[2021-04-21 11:06] LABS: ABS Eosinophils 0.3 10^3/ul (0-0.6); ABS Lymphocytes 1.5 10^3/ul (1.0-4.8); ABS Monocytes 0.9 10^3/ul (0-0.8); ABS Neutrophils 5.9 10^3/ul (1.5-7.7); Hematocrit 34 % (42-52); Hemoglobin 11.7 g/dL (14.0-18.0); Lymphocyte % 17.6 %; Mean Corpuscular HGB Conc 34 g/dL (31-36); Mean Corpuscular Hemoglobin 32 pg (27-31); Mean Corpuscular Volume 95 fL (80-94); Nucleated Red Blood Cells % 0.1; Platelet Count 218 10^3/uL (150-450); Red Blood Count 3.63 10^6 /uL (4.18-5.48); Red Cell Distribution Width 14 % (10-15); White Blood Count 8.7 10^3/uL (3.5-10.8)
[2021-04-21] MEDS: Nystatin TOP POWDER 15 GM BTL TOPICAL SCH ×2 (11:49→21:04)
[2021-04-21 14:44] LABS: Phosphorus 3.4 mg/dL (2.5-5.0)
[2021-04-21] MEDS ORDERED: NS 0.9% 1000 ml BAG 1,000 ML IV SCH (16:15)
[2021-04-21] MEDS: Warfarin DAILY REMINDER **NOTE FOLLOW UP SCH (17:39)
[2021-04-22] MEDS: cefTRIAXone 1 gm/50 mL NS BAG 1 GM/50 ML BAG IVPB SCH (00:39)
[2021-04-22 05:46] LABS: INR 1.98 (0.86-1.15)
[2021-04-22 05:56] LABS: EGFR African American 111.5 (>60); EGFR Non-African American 92.2 (>60); Potassium 3.8 mmol/L (3.5-5.0)
[2021-04-22] MEDS: Phenytoin 100 mg ER CAP PO SCH (08:53)
[2021-04-22] MEDS: Nystatin TOP POWDER 15 GM BTL TOPICAL SCH (08:55)
[2021-04-22 13:36] VITALS: BP 109/72
== END 2021-04-22 14:24 | disposition home or self-care (01) | DRG 603 ==
LOC: ED 17:28 → MEDTELE 17:28
PROVIDERS: ADMIT Internal Medicine; ATTEND Student in an Organized Health Care Education/Training Program

== ENCOUNTER 2021-10-16 20:08 | Observation (INO) ==
[2021-10-16] MEDS ORDERED: NS 0.9% 1000 ml BAG 1,000 ML IV ONE (21:12)
[2021-10-16 21:21] LABS: ABS Basophils 0.1 10^3/ul (0-0.2); ABS Eosinophils 0.1 10^3/ul (0-0.6); ABS Lymphocytes 1.5 10^3/ul (1.0-4.8); ABS Monocytes 1.1 10^3/ul (0-0.8); ABS Neutrophils 8.7 10^3/ul (1.5-7.7); Eosinophil % 0.6 %; Hematocrit 37 % (42-52); Hemoglobin 12.8 g/dL (14.0-18.0); Lymphocyte % 12.9 %; Mean Corpuscular HGB Conc 34 g/dL (31-36); Mean Corpuscular Hemoglobin 32 pg (27-31); Mean Corpuscular Volume 94 fL (80-94); Mean Platelet Volume 6.5 fL (7.4-10.4); Platelet Count 209 10^3/uL (150-450); Red Blood Count 3.98 10^6 /uL (4.18-5.48); Red Cell Distribution Width 14 % (10-15); White Blood Count 11.4 10^3/uL (3.5-10.8)
[2021-10-16 21:30] LABS: Activated Partial Thrombo Time 40.9 seconds (26.0-38.0); INR 2.17 (0.86-1.15)
[2021-10-16 21:38] LABS: ALT 18 U/L (7-52); AST 24 U/L (13-39); Albumin 3.8 g/dL (3.2-5.2); Albumin/Globulin Ratio 1.1 (1-3); Alkaline Phosphatase 144 U/L (35-149); Anion Gap 11 mmol/L (2-11); Blood Urea Nitrogen 23 mg/dL (6-24); C Reactive Protein 30.37 mg/L (<8.01); CO2 Carbon Dioxide 28 mmol/L (22-32); Calcium 9.2 mg/dL (8.6-10.3); Chloride 98 mmol/L (101-111); Globulin 3.4 g/dL (2-4); Glucose 108 mg/dL (70-100); Magnesium 2.1 mg/dL (1.9-2.7); Potassium 3.9 mmol/L (3.5-5.0); Sodium 137 mmol/L (135-145); Total Protein 7.2 g/dL (6.4-8.9); eGFR CKD-EPI 77.5 (>60)
[2021-10-16 21:41] LABS: Troponin I 0.21 ng/mL (<0.03)
[2021-10-16] MEDS ORDERED: Amoxicillin/Clavul 875/125 TAB (Augmentin 875 tab) PO ONE (22:24)
[2021-10-16 23:09] LABS: Rapid COVID-19 Molecular Undetected (Undetected)
[2021-10-17] MEDS ORDERED: Albuterol HFA INHALER 8 gm MDI INH PRN (01:14)
[2021-10-17] MEDS: Polyethylene Glycol 3350 17 GM PACKET PO SCH ×2 (03:30→09:14)
[2021-10-17 05:29] LABS: ABS Eosinophils 0.1 10^3/ul (0-0.6); ABS Lymphocytes 1.5 10^3/ul (1.0-4.8); ABS Neutrophils 8.3 10^3/ul (1.5-7.7); Eosinophil % 0.8 %; Hematocrit 36 % (42-52); Hemoglobin 12.2 g/dL (14.0-18.0); Lymphocyte % 13.4 %; Mean Corpuscular HGB Conc 34 g/dL (31-36); Mean Corpuscular Hemoglobin 32 pg (27-31); Mean Corpuscular Volume 93 fL (80-94); Mean Platelet Volume 6.4 fL (7.4-10.4); Platelet Count 206 10^3/uL (150-450); Red Blood Count 3.83 10^6 /uL (4.18-5.48); Red Cell Distribution Width 14 % (10-15); White Blood Count 10.9 10^3/uL (3.5-10.8)
[2021-10-17 05:35] LABS: INR 2.28 (0.86-1.15)
[2021-10-17 05:45] LABS: Potassium 3.9 mmol/L (3.5-5.0); eGFR CKD-EPI 88.4 (>60)
[2021-10-17] MEDS ORDERED: NS 0.9% 1000 ml BAG 1,000 ML IV SCH (06:15)
[2021-10-17 07:22] VITALS: BP 95/49
[2021-10-17] MEDS ORDERED: Phenytoin 100 mg ER CAP PO SCH (09:00)
== END 2021-10-17 13:00 | disposition home or self-care (01) ==
LOC: SSU 20:08 → ED 20:08 → SSU 10-17 02:30 → SUATTDRO 10-17 02:49
PROVIDERS: ADMIT Internal Medicine; ATTEND Student in an Organized Health Care Education/Training Program

== ENCOUNTER 2023-01-08 18:09 | Inpatient (IN) ==
[2023-01-08 19:52] LABS: ABS Lymphocytes 2.5 10^3/uL (1.0-4.8); ABS Monocytes 1.2 10^3/uL (0.0-1.1); ABS Nucleated RBC 0.01 10^3/ul; Eosinophil % 0.2 %; Hematocrit 39.4 % (38-53); Hemoglobin 13.4 g/dL (13.2-16.3); Mean Corpuscular Hemoglobin 30.7 pg (27-33); Mean Corpuscular Hgb Conc 34.1 g/dL (31-36); Mean Corpuscular Volume 89.9 fL (80-97); Mean Platelet Volume 6.5 fL (7.5-11.2); Nucleated Red Blood Cells % 0.1 /100 WBC (0.0-0.4); Platelet Count 444 10^3/uL (150-450); Red Blood Count 4.38 10^6/uL (4.06-5.63); Red Cell Distribution Width 13.5 % (12-17); White Blood Count 14.7 10^3/uL (3.6-10.2)
[2023-01-08] MEDS ORDERED: Lactated Ringers SEPSIS* BAG 2,050 ML IV ONE (19:57)
[2023-01-08] MEDS ORDERED: Vancomycin 1,750 MG in NS 0.9% 250 ml 250 ML IVPB SCH (20:00)
[2023-01-08] MEDS ORDERED: metroNIDAZOLE IV 500 MG/100ML 500 MG/100 ML BAG IVPB ONE (20:00)
[2023-01-08] MEDS ORDERED: Cefepime 2 GM in Dextrose 2 GM/50 ML BAG IV ONE (20:00)
[2023-01-08 20:25] LABS: Albumin 3.5 g/dL (3.2-5.2); Albumin/Globulin Ratio 0.9 (1-3); Calcium 8.9 mg/dL (8.6-10.3); Creatinine, Serum 1.04 mg/dL (0.67-1.17); Globulin 3.8 g/dL (2-4); Potassium 3.9 mmol/L (3.5-5.0); Total Bilirubin 0.5 mg/dL (0.2-1.0); Total Protein 7.3 g/dL (6.4-8.9); eGFR CKD-EPI 72.6 (>60)
[2023-01-08] MEDS ORDERED: Vancomycin 1,750 MG in NS 0.9% 500 ml BAG 500 ML IVPB ONE (20:30)
[2023-01-08 20:54] LABS: C Reactive Protein 116.81 mg/L (<8.01)
[2023-01-08] MEDS ORDERED: Senna TAB 8.6 mg TAB PO PRN (22:24)
[2023-01-08] MEDS ORDERED: Warfarin per PHARMACY **NOTE FOLLOW UP SCH (23:00)
[2023-01-08] MEDS ORDERED: Vancomycin per Pharmacy 1 EA NOTE FOLLOW UP SCH (23:00)
[2023-01-08 23:48] LABS: Activated Partial Thrombo Time 37.1 seconds (26.0-38.0); INR 1.95 (0.88-1.18)
[2023-01-09 00:08] LABS: Digoxin 1.8 ng/ml (0.8-2.0)
[2023-01-09] MEDS ORDERED: Morphine 2 MG/ML SYRINGE IV ONE (01:01)
[2023-01-09 04:52] LABS: ABS Basophils 0.1 10^3/uL (0.0-0.1); ABS Eosinophils 0.1 10^3/uL (0.0-0.5); ABS Lymphocytes 2.2 10^3/uL (1.0-4.8); ABS Monocytes 1.1 10^3/uL (0.0-1.1); ABS Neutrophils 8.9 10^3/uL (1.5-7.6); ABS Nucleated RBC 0.01 10^3/ul; Eosinophil % 0.4 %; Hematocrit 37.4 % (38-53); Mean Corpuscular Hemoglobin 31.6 pg (27-33); Mean Corpuscular Hgb Conc 34.7 g/dL (31-36); Mean Corpuscular Volume 91.1 fL (80-97); Mean Platelet Volume 6.5 fL (7.5-11.2); Nucleated Red Blood Cells % 0.1 /100 WBC (0.0-0.4); Platelet Count 387 10^3/uL (150-450); Red Cell Distribution Width 13.5 % (12-17); White Blood Count 12.4 10^3/uL (3.6-10.2)
[2023-01-09 04:56] LABS: INR 1.62 (0.88-1.18)
[2023-01-09 05:40] LABS: Calcium 8.4 mg/dL (8.6-10.3); Creatinine, Serum 0.93 mg/dL (0.67-1.17); Potassium 3.4 mmol/L (3.5-5.0)
[2023-01-09] MEDS ORDERED: Cefepime 2 GM in Dextrose 2 GM/50 ML BAG IV SCH (06:00)
[2023-01-09] MEDS: Cefepime 2 GM in Dextrose 2 GM/50 ML BAG IV SCH ×2 (08:54→20:15)
[2023-01-09] MEDS: Phenytoin 100 mg ER CAP PO SCH (08:55)
[2023-01-09] MEDS: Vancomycin 1000 MG in NS 0.9% 250 ML IVPB SCH ×2 (10:42→20:56)
[2023-01-09] MEDS: Warfarin DAILY REMINDER **NOTE FOLLOW UP SCH (16:58)
[2023-01-10 06:16] LABS: ABS Basophils 0.1 10^3/uL (0.0-0.1); ABS Eosinophils 0.2 10^3/uL (0.0-0.5); ABS Lymphocytes 2.2 10^3/uL (1.0-4.8); ABS Neutrophils 6.8 10^3/uL (1.5-7.6); ABS Nucleated RBC 0.01 10^3/ul; Eosinophil % 1.7 %; Hematocrit 37.1 % (38-53); Hemoglobin 12.6 g/dL (13.2-16.3); Lymphocyte % 21.6 %; Mean Corpuscular Hemoglobin 31.4 pg (27-33); Mean Corpuscular Volume 92.3 fL (80-97); Mean Platelet Volume 6.7 fL (7.5-11.2); Nucleated Red Blood Cells % 0.1 /100 WBC (0.0-0.4); Platelet Count 375 10^3/uL (150-450); Red Blood Count 4.02 10^6/uL (4.06-5.63); Red Cell Distribution Width 13.5 % (12-17); White Blood Count 10.3 10^3/uL (3.6-10.2)
[2023-01-10 06:26] LABS: INR 1.57 (0.88-1.18)
[2023-01-10 06:46] LABS: Creatinine, Serum 1.08 mg/dL (0.67-1.17); Magnesium 1.9 mg/dL (1.9-2.7); Potassium 3.3 mmol/L (3.5-5.0); eGFR CKD-EPI 69.4 (>60)
[2023-01-10 08:44] LABS: C Reactive Protein 134.99 mg/L (<8.01)
[2023-01-10] MEDS: Cefepime 2 GM in Dextrose 2 GM/50 ML BAG IV SCH ×2 (09:08→21:47)
[2023-01-10] MEDS: Phenytoin 100 mg ER CAP PO SCH (09:11)
[2023-01-10] MEDS ORDERED: Vancomycin Trough Check NOTE FOLLOW UP ONE (09:30)
[2023-01-10 10:11] LABS: Creatinine, Serum 1.15 mg/dL (0.67-1.17); Vancomycin Trough 15.1 mcg/mL; eGFR CKD-EPI 64.3 (>60)
[2023-01-10] MEDS: Vancomycin 1000 MG in NS 0.9% 250 ML IVPB SCH ×2 (10:28→22:31)
[2023-01-10] MEDS ORDERED: Potassium Chloride LIQUID 20 MEQ/15 ML LIQUID PO ONE (10:28)
[2023-01-10] MEDS: Warfarin DAILY REMINDER **NOTE FOLLOW UP SCH (17:33)
[2023-01-11] MEDS: Morphine 2 MG/ML SYRINGE IV PRN ×2 (05:37→14:39)
[2023-01-11 09:05] LABS: ABS Basophils 0.1 10^3/uL (0.0-0.1); ABS Eosinophils 0.2 10^3/uL (0.0-0.5); ABS Lymphocytes 2.4 10^3/uL (1.0-4.8); ABS Monocytes 0.9 10^3/uL (0.0-1.1); ABS Neutrophils 6.3 10^3/uL (1.5-7.6); ABS Nucleated RBC 0.02 10^3/ul; Hemoglobin 11.6 g/dL (13.2-16.3); Mean Corpuscular Hemoglobin 30.9 pg (27-33); Mean Corpuscular Hgb Conc 34.1 g/dL (31-36); Mean Corpuscular Volume 90.7 fL (80-97); Mean Platelet Volume 6.7 fL (7.5-11.2); Nucleated Red Blood Cells % 0.2 /100 WBC (0.0-0.4); Platelet Count 351 10^3/uL (150-450); Red Blood Count 3.75 10^6/uL (4.06-5.63); Red Cell Distribution Width 13.7 % (12-17); White Blood Count 9.8 10^3/uL (3.6-10.2)
[2023-01-11 09:10] LABS: INR 1.87 (0.88-1.18)
[2023-01-11] MEDS: Phenytoin 100 mg ER CAP PO SCH (09:15)
[2023-01-11] MEDS: Cefepime 2 GM in Dextrose 2 GM/50 ML BAG IV SCH ×2 (09:19→21:06)
[2023-01-11 09:48] LABS: C Reactive Protein 135.37 mg/L (<8.01); Calcium 8.3 mg/dL (8.6-10.3); Creatinine, Serum 1.21 mg/dL (0.67-1.17); Digoxin 1.3 ng/ml (0.8-2.0); Potassium 3.7 mmol/L (3.5-5.0); eGFR CKD-EPI 60.5 (>60)
[2023-01-11] MEDS: Vancomycin 1000 MG in NS 0.9% 250 ML IVPB SCH (09:54)
[2023-01-11] MEDS: Polyethylene Glycol 3350 17 GM PACKET PO PRN (11:21)
[2023-01-11] MEDS: Warfarin DAILY REMINDER **NOTE FOLLOW UP SCH (16:12)
[2023-01-12] MEDS: Morphine 2 MG/ML SYRINGE IV PRN ×4 (01:46→21:35)
[2023-01-12 07:21] LABS: CO2 Carbon Dioxide 27 mmol/L (22-32); Calcium 8.3 mg/dL (8.6-10.3); Chloride 98 mmol/L (101-111); Sodium 135 mmol/L (135-145)
[2023-01-12 07:27] LABS: Blood Urea Nitrogen 33 mg/dL (6-24); Glucose 96 mg/dL (70-100); eGFR CKD-EPI 61.1 (>60)
[2023-01-12 07:29] LABS: Anion Gap 10 mmol/L (2-16)
[2023-01-12] MEDS: Cefepime 2 GM in Dextrose 2 GM/50 ML BAG IV SCH ×2 (09:13→21:23)
[2023-01-12] MEDS: Phenytoin 100 mg ER CAP PO SCH (09:19)
[2023-01-12] MEDS ORDERED: Vancomycin Trough Check NOTE FOLLOW UP ONE (09:30)
[2023-01-12 09:32] LABS: INR 2.14 (0.88-1.18)
[2023-01-12 10:10] LABS: Creatinine, Serum 1.28 mg/dL (0.67-1.17); Potassium Redraw 3.7 mmol/L (3.5-5.0); Vancomycin Trough 13.5 mcg/mL; eGFR CKD-EPI 56.6 (>60)
[2023-01-12] MEDS: Warfarin DAILY REMINDER **NOTE FOLLOW UP SCH (21:22)
[2023-01-13 06:31] LABS: ABS Basophils 0.1 10^3/uL (0.0-0.1); ABS Eosinophils 0.2 10^3/uL (0.0-0.5); ABS Lymphocytes 2.1 10^3/uL (1.0-4.8); ABS Neutrophils 6.3 10^3/uL (1.5-7.6); ABS Nucleated RBC 0.02 10^3/ul; Eosinophil % 2.2 %; Hematocrit 35.2 % (38-53); Lymphocyte % 21.6 %; Mean Corpuscular Hemoglobin 31.3 pg (27-33); Mean Corpuscular Hgb Conc 34.2 g/dL (31-36); Mean Corpuscular Volume 91.6 fL (80-97); Nucleated Red Blood Cells % 0.2 /100 WBC (0.0-0.4); Platelet Count 332 10^3/uL (150-450); Red Blood Count 3.84 10^6/uL (4.06-5.63); Red Cell Distribution Width 13.6 % (12-17); White Blood Count 9.7 10^3/uL (3.6-10.2)
[2023-01-13 06:48] LABS: INR 2.1 (0.88-1.18)
[2023-01-13 06:49] LABS: Calcium 8.2 mg/dL (8.6-10.3); Creatinine, Serum 1.32 mg/dL (0.67-1.17); Potassium 3.8 mmol/L (3.5-5.0); eGFR CKD-EPI 54.5 (>60)
[2023-01-13] MEDS: Cefepime 2 GM in Dextrose 2 GM/50 ML BAG IV SCH ×2 (08:25→20:20)
[2023-01-13] MEDS: Phenytoin 100 mg ER CAP PO SCH (08:26)
[2023-01-13] MEDS: Morphine 2 MG/ML SYRINGE IV PRN ×2 (14:57→20:18)
[2023-01-13] MEDS: Warfarin DAILY REMINDER **NOTE FOLLOW UP SCH (16:12)
[2023-01-14 06:53] LABS: ABS Eosinophils 0.1 10^3/uL (0.0-0.5); ABS Lymphocytes 1.9 10^3/uL (1.0-4.8); ABS Monocytes 1.2 10^3/uL (0.0-1.1); ABS Neutrophils 7.2 10^3/uL (1.5-7.6); ABS Nucleated RBC 0.01 10^3/ul; Eosinophil % 1.3 %; Hematocrit 34.4 % (38-53); Hemoglobin 11.6 g/dL (13.2-16.3); Lymphocyte % 18.1 %; Mean Corpuscular Hemoglobin 31.1 pg (27-33); Mean Corpuscular Hgb Conc 33.8 g/dL (31-36); Mean Corpuscular Volume 91.8 fL (80-97); Mean Platelet Volume 6.7 fL (7.5-11.2); Nucleated Red Blood Cells % 0.1 /100 WBC (0.0-0.4); Platelet Count 283 10^3/uL (150-450); Red Blood Count 3.75 10^6/uL (4.06-5.63); Red Cell Distribution Width 13.5 % (12-17); White Blood Count 10.5 10^3/uL (3.6-10.2)
[2023-01-14 07:43] LABS: Calcium 8.2 mg/dL (8.6-10.3); Creatinine, Serum 1.32 mg/dL (0.67-1.17); Magnesium 1.9 mg/dL (1.9-2.7); eGFR CKD-EPI 54.5 (>60)
[2023-01-14 08:29] LABS: C Reactive Protein 63.38 mg/L (<8.01)
[2023-01-14] MEDS: Phenytoin 100 mg ER CAP PO SCH (09:57)
[2023-01-14] MEDS: Morphine 2 MG/ML SYRINGE IV PRN (15:51)
[2023-01-14] MEDS: Warfarin DAILY REMINDER **NOTE FOLLOW UP SCH (16:49)
[2023-01-15 06:41] LABS: INR 3.26 (0.88-1.18)
[2023-01-15 06:59] LABS: Calcium 8.1 mg/dL (8.6-10.3); Creatinine, Serum 1.14 mg/dL (0.67-1.17); Potassium 3.8 mmol/L (3.5-5.0)
[2023-01-15] MEDS: Phenytoin 100 mg ER CAP PO SCH (09:42)
[2023-01-15] MEDS: Polyethylene Glycol 3350 17 GM PACKET PO PRN (10:40)
[2023-01-15] MEDS ORDERED: Warfarin - No Order Today **NOTE FOLLOW UP ONE (17:00)
[2023-01-15] MEDS: Warfarin DAILY REMINDER **NOTE FOLLOW UP SCH (19:35)
[2023-01-16 07:08] LABS: INR 2.11 (0.88-1.18)
[2023-01-16] MEDS: Phenytoin 100 mg ER CAP PO SCH (09:15)
[2023-01-16 10:02] VITALS: BP 114/56
== END 2023-01-16 11:35 | disposition home or self-care (01) | DRG 593 ==
LOC: ED 18:09 → SUATTDRO 22:24 → EDHOLD 22:24 → MED 01-09 15:16
PROVIDERS: ADMIT Internal Medicine; ATTEND Internal Medicine

== ENCOUNTER 2023-03-28 00:29 | Inpatient (IN) ==
[2023-03-28 01:23] LABS: Hematocrit 39.4 % (38-53); Hemoglobin 13.7 g/dL (13.2-16.3); Mean Corpuscular Hemoglobin 32.1 pg (27-33); Mean Corpuscular Hgb Conc 34.7 g/dL (31-36); Mean Corpuscular Volume 92.5 fL (80-97); Mean Platelet Volume 6.7 fL (7.5-11.2); Platelet Count 267 10^3/uL (150-450); Red Blood Count 4.26 10^6/uL (4.06-5.63); Red Cell Distribution Width 14.5 % (12-17); White Blood Count 22.4 10^3/uL (3.6-10.2)
[2023-03-28 01:39] LABS: Albumin 3.9 g/dL (3.2-5.2); Albumin/Globulin Ratio 0.8 (1-3); Calcium 9.4 mg/dL (8.6-10.3); Creatinine, Serum 1.06 mg/dL (0.67-1.17); Globulin 4.6 g/dL (2-4); Total Bilirubin 0.5 mg/dL (0.2-1.0); Total Protein 8.5 g/dL (6.4-8.9); eGFR CKD-EPI 70.9 (>60)
[2023-03-28] MEDS ORDERED: Iohexol 350 (CONTRAST) 500 ML MDV IV ONE (01:48)
[2023-03-28 01:58] LABS: ABS Basophils 0.1 10^3/uL (0.0-0.1); ABS Monocytes 1.1 10^3/uL (0.0-1.1); ABS Neutrophils 20.1 10^3/uL (1.5-7.6); ABS Nucleated RBC 0.01 10^3/ul; Eosinophil % 0.1 %; Lymphocyte % 4.5 %; Nucleated Red Blood Cells % 0.1 /100 WBC (0.0-0.4)
[2023-03-28] MEDS ORDERED: LORazepam 2 mg VIAL 1 ml ONE (03:11)
[2023-03-28] MEDS ORDERED: Lorazepam PYXIS KEY PRN (03:35)
[2023-03-28] MEDS ORDERED: LORazepam 2 mg VIAL 1 ml IV PUSH ONE (03:35)
[2023-03-28 06:19] LABS: Urine Appearance Clear; Urine Bilirubin Negative (Negative); Urine Blood 2+ (Negative); Urine Color Yellow; Urine Glucose Negative (Negative); Urine Ketones Negative (Negative); Urine Nitrite Negative (Negative); Urine Protein Negative (Negative); Urine Specific Gravity 1.019 (1.002-1.030); Urine Urobilinogen Negative (Negative)
[2023-03-28 06:22] LABS: Urine Bacteria Absent (Absent); Urine Red Blood Cell 1+(3-5/hpf) (Absent); Urine Squamous Epithelial Cell Present (Absent); Urine White Blood Cell Trace(0-5/hpf) (Absent)
[2023-03-28] MEDS ORDERED: cefTRIAXone 1 gm/50 mL D5W 1 GM/50 ML BAG IV ONE (12:39)
[2023-03-28] MEDS ORDERED: Lactated Ringers 1000 ml BAG 1,000 ML IV ONE ×2 (12:40→15:04)
[2023-03-28] MEDS ORDERED: Acetaminophen IV 1 GM/100ML 1,000 MG/100 ML BAG IV ONE (13:15)
[2023-03-28 14:50] LABS: High Sensitivity Troponin 1 Hr 26 pg/mL (<20)
[2023-03-28] MEDS ORDERED: Vancomycin 2,000 MG in NS 0.9% 500 ml BAG 500 ML IVPB ONE (15:00)
[2023-03-28] MEDS ORDERED: Warfarin per PHARMACY **NOTE FOLLOW UP SCH (17:00)
[2023-03-28 17:29] LABS: INR 1.6 (0.88-1.18)
[2023-03-28] MEDS: Acetaminophen IV 1 GM/100ML 1,000 MG/100 ML BAG IV PRN (20:03)
[2023-03-28] MEDS ORDERED: Vancomycin per Pharmacy 1 EA NOTE FOLLOW UP SCH (23:45)
[2023-03-29] MEDS: Acetaminophen IV 1 GM/100ML 1,000 MG/100 ML BAG IV PRN ×3 (02:33→22:12)
[2023-03-29] MEDS ORDERED: Vancomycin 1000 MG in NS 0.9% 250 ML IVPB SCH (06:00)
[2023-03-29 06:53] LABS: ABS Lymphocytes 1.3 10^3/uL (1.0-4.8); ABS Monocytes 0.7 10^3/uL (0.0-1.1); ABS Neutrophils 12.8 10^3/uL (1.5-7.6); Eosinophil % 0.2 %; Hematocrit 32.1 % (38-53); Hemoglobin 10.9 g/dL (13.2-16.3); Lymphocyte % 8.5 %; Mean Corpuscular Hemoglobin 31.1 pg (27-33); Mean Corpuscular Hgb Conc 34.1 g/dL (31-36); Mean Corpuscular Volume 91.4 fL (80-97); Mean Platelet Volume 7.2 fL (7.5-11.2); Platelet Count 183 10^3/uL (150-450); Red Blood Count 3.51 10^6/uL (4.06-5.63); Red Cell Distribution Width 14.2 % (12-17); White Blood Count 14.9 10^3/uL (3.6-10.2)
[2023-03-29 06:59] LABS: INR 1.51 (0.88-1.18)
[2023-03-29 07:10] LABS: Calcium 8.5 mg/dL (8.6-10.3); Creatinine, Serum 0.98 mg/dL (0.67-1.17); Potassium 3.1 mmol/L (3.5-5.0)
[2023-03-29] MEDS: Potassium Chlor 20 meq TAB.ER PO SCH ×3 (09:04→13:47)
[2023-03-29] MEDS: Phenytoin 100 mg ER CAP PO SCH (09:05)
[2023-03-29] MEDS: cefTRIAXone 2 gm/50 mL D5W 2 GM/50 ML BAG IV SCH (12:41)
[2023-03-30] MEDS ORDERED: Vancomycin Trough Check NOTE FOLLOW UP ONE (05:30)
[2023-03-30 07:29] LABS: INR 1.51 (0.88-1.18)
[2023-03-30 07:34] LABS: CO2 Carbon Dioxide 21 mmol/L (22-32); Calcium 8.5 mg/dL (8.6-10.3); Chloride 102 mmol/L (101-111); Magnesium 2.3 mg/dL (1.9-2.7); Sodium 133 mmol/L (135-145)
[2023-03-30 07:40] LABS: Blood Urea Nitrogen 21 mg/dL (6-24); Creatinine, Serum 0.96 mg/dL (0.67-1.17); Glucose 85 mg/dL (70-100); eGFR CKD-EPI 79.9 (>60)
[2023-03-30 07:42] LABS: Anion Gap 10 mmol/L (2-16)
[2023-03-30] MEDS: Phenytoin 100 mg ER CAP PO SCH (07:53)
[2023-03-30 08:32] LABS: ABS Eosinophils 0.3 10^3/uL (0.0-0.5); ABS Lymphocytes 1.6 10^3/uL (1.0-4.8); ABS Monocytes 0.8 10^3/uL (0.0-1.1); ABS Neutrophils 8.5 10^3/uL (1.5-7.6); Hematocrit 31.4 % (38-53); Hemoglobin 10.7 g/dL (13.2-16.3); Lymphocyte % 14.3 %; Mean Corpuscular Hemoglobin 31.8 pg (27-33); Mean Corpuscular Hgb Conc 34.2 g/dL (31-36); Mean Corpuscular Volume 93.2 fL (80-97); Mean Platelet Volume 7.1 fL (7.5-11.2); Platelet Count 179 10^3/uL (150-450); Red Blood Count 3.37 10^6/uL (4.06-5.63); Red Cell Distribution Width 14.4 % (12-17); White Blood Count 11.3 10^3/uL (3.6-10.2)
[2023-03-30] MEDS: cefTRIAXone 2 gm/50 mL D5W 2 GM/50 ML BAG IV SCH (12:09)
[2023-03-30] MEDS: Acetaminophen IV 1 GM/100ML 1,000 MG/100 ML BAG IV PRN ×2 (12:30→23:54)
[2023-03-30] MEDS ORDERED: Magnesium Hydroxide LIQ 30 ML UDC PO PRN (12:56)
[2023-03-30] MEDS: Polyethylene Glycol 3350 17 GM PACKET PO PRN (14:50)
[2023-03-30] MEDS: Warfarin DAILY REMINDER **NOTE FOLLOW UP SCH (17:17)
[2023-03-31] MEDS ORDERED: Lidocaine 4% GEL 10 GM TUBE TOPICAL ONE (05:11)
[2023-03-31 06:25] LABS: INR 1.71 (0.88-1.18)
[2023-03-31 06:32] LABS: Calcium 8.9 mg/dL (8.6-10.3); Creatinine, Serum 0.99 mg/dL (0.67-1.17); Magnesium 2.2 mg/dL (1.9-2.7); Potassium 3.8 mmol/L (3.5-5.0)
[2023-03-31 07:12] LABS: ABS Basophils 0.1 10^3/uL (0.0-0.1); ABS Eosinophils 0.3 10^3/uL (0.0-0.5); ABS Lymphocytes 2.3 10^3/uL (1.0-4.8); ABS Monocytes 0.5 10^3/uL (0.0-1.1); ABS Neutrophils 5.2 10^3/uL (1.5-7.6); ABS Nucleated RBC 0.01 10^3/ul; Eosinophil % 3.9 %; Hematocrit 34.2 % (38-53); Hemoglobin 11.7 g/dL (13.2-16.3); Lymphocyte % 27.8 %; Mean Corpuscular Hemoglobin 31.7 pg (27-33); Mean Corpuscular Hgb Conc 34.2 g/dL (31-36); Mean Corpuscular Volume 92.8 fL (80-97); Nucleated Red Blood Cells % 0.2 /100 WBC (0.0-0.4); Platelet Count 217 10^3/uL (150-450); Red Blood Count 3.68 10^6/uL (4.06-5.63); Red Cell Distribution Width 14.4 % (12-17); White Blood Count 8.4 10^3/uL (3.6-10.2)
[2023-03-31] MEDS: Phenytoin 100 mg ER CAP PO SCH (08:40)
[2023-03-31] MEDS: cefTRIAXone 2 gm/50 mL D5W 2 GM/50 ML BAG IV SCH (12:06)
[2023-03-31] MEDS: Acetaminophen IV 1 GM/100ML 1,000 MG/100 ML BAG IV PRN (14:55)
[2023-03-31] MEDS: Warfarin DAILY REMINDER **NOTE FOLLOW UP SCH (17:31)
[2023-04-01 06:06] LABS: ABS Eosinophils 0.2 10^3/uL (0.0-0.5); ABS Monocytes 0.7 10^3/uL (0.0-1.1); ABS Nucleated RBC 0.04 10^3/ul; Hematocrit 34.2 % (38-53); Hemoglobin 11.4 g/dL (13.2-16.3); INR 2.29 (0.88-1.18); Lymphocyte % 25.6 %; Mean Corpuscular Hemoglobin 31.3 pg (27-33); Mean Corpuscular Hgb Conc 33.2 g/dL (31-36); Mean Corpuscular Volume 94.3 fL (80-97); Mean Platelet Volume 7.3 fL (7.5-11.2); Nucleated Red Blood Cells % 0.5 /100 WBC (0.0-0.4); Platelet Count 217 10^3/uL (150-450); Red Blood Count 3.63 10^6/uL (4.06-5.63); Red Cell Distribution Width 14.7 % (12-17)
[2023-04-01 06:14] LABS: Calcium 8.8 mg/dL (8.6-10.3); Creatinine, Serum 0.92 mg/dL (0.67-1.17); Potassium 3.6 mmol/L (3.5-5.0); eGFR CKD-EPI 84.1 (>60)
[2023-04-01] MEDS: Phenytoin 100 mg ER CAP PO SCH (10:02)
[2023-04-01] MEDS: cefTRIAXone 2 gm/50 mL D5W 2 GM/50 ML BAG IV SCH (13:06)
[2023-04-01 17:27] LABS: Anaplasma phagocytophilum Negative (Negative); B. miyamotoi PCR, B Negative (Negative); Babesia divergens/MO-1 Negative (Negative); Babesia ducani Negative (Negative); Ehrlichia chaffeensis Negative (Negative); Ehrlichia ewingii/canis Negative (Negative); Ehrlichia muris eauclairensis Negative (Negative)
[2023-04-01] MEDS: Warfarin DAILY REMINDER **NOTE FOLLOW UP SCH (17:28)
[2023-04-01 18:55] LABS: C Reactive Protein 118.61 mg/L (<8.01)
[2023-04-01] MEDS ORDERED: Phytonadione IV (Adult) 10 MG in NS 0.9% 50 ML 50 ML IV ONE (19:06)
[2023-04-01] MEDS: ceFAZolin 2 GM in NS PREMIX 2 GM/100 ML BAG IVPB SCH (20:41)
[2023-04-02] MEDS: ceFAZolin 2 GM in NS PREMIX 2 GM/100 ML BAG IVPB SCH ×3 (04:05→20:37)
[2023-04-02 07:04] LABS: INR 1.42 (0.88-1.18)
[2023-04-02] MEDS ORDERED: NS 0.9% 500 ml BAG 500 ML IV ONE (08:26)
[2023-04-02] MEDS: Phenytoin 100 mg ER CAP PO SCH (09:22)
[2023-04-02] MEDS: Morphine 2 MG/ML SYRINGE IV PRN (09:23)
[2023-04-02] MEDS ORDERED: Warfarin per PHARMACY **NOTE FOLLOW UP SCH (10:00)
[2023-04-02] MEDS ORDERED: Enoxaparin 100 MG/ML SYR SUBCUT SCH (10:00)
[2023-04-02] MEDS: Warfarin DAILY REMINDER **NOTE FOLLOW UP SCH (17:15)
[2023-04-03] MEDS: Morphine 2 MG/ML SYRINGE IV PRN ×5 (00:54→20:42)
[2023-04-03] MEDS: ceFAZolin 2 GM in NS PREMIX 2 GM/100 ML BAG IVPB SCH ×3 (04:26→21:27)
[2023-04-03 06:43] LABS: INR 1.29 (0.88-1.18)
[2023-04-03] MEDS: Phenytoin 100 mg ER CAP PO SCH (08:55)
[2023-04-03] MEDS: Warfarin DAILY REMINDER **NOTE FOLLOW UP SCH (19:36)
[2023-04-04] MEDS: ceFAZolin 2 GM in NS PREMIX 2 GM/100 ML BAG IVPB SCH ×3 (05:03→20:30)
[2023-04-04] MEDS: Morphine 2 MG/ML SYRINGE IV PRN ×2 (06:07→21:45)
[2023-04-04 08:48] LABS: ABS Basophils 0.1 10^3/uL (0.0-0.1); ABS Eosinophils 0.2 10^3/uL (0.0-0.5); ABS Lymphocytes 2.3 10^3/uL (1.0-4.8); ABS Monocytes 0.8 10^3/uL (0.0-1.1); ABS Neutrophils 7.4 10^3/uL (1.5-7.6); ABS Nucleated RBC 0.01 10^3/ul; Eosinophil % 2.3 %; Hematocrit 30.3 % (38-53); Hemoglobin 10.4 g/dL (13.2-16.3); Lymphocyte % 20.9 %; Mean Corpuscular Hemoglobin 32.1 pg (27-33); Mean Corpuscular Hgb Conc 34.4 g/dL (31-36); Mean Corpuscular Volume 93.3 fL (80-97); Mean Platelet Volume 6.8 fL (7.5-11.2); Nucleated Red Blood Cells % 0.1 /100 WBC (0.0-0.4); Platelet Count 297 10^3/uL (150-450); Red Blood Count 3.24 10^6/uL (4.06-5.63); Red Cell Distribution Width 14.2 % (12-17); White Blood Count 10.9 10^3/uL (3.6-10.2)
[2023-04-04 08:54] LABS: INR 1.38 (0.88-1.18)
[2023-04-04 09:07] LABS: C Reactive Protein 106.62 mg/L (<8.01); Calcium 8.7 mg/dL (8.6-10.3); Creatinine, Serum 0.89 mg/dL (0.67-1.17); Potassium 3.7 mmol/L (3.5-5.0); eGFR CKD-EPI 86.6 (>60)
[2023-04-04] MEDS: Phenytoin 100 mg ER CAP PO SCH (10:35)
[2023-04-04] MEDS: Warfarin DAILY REMINDER **NOTE FOLLOW UP SCH (17:26)
[2023-04-05] MEDS: ceFAZolin 2 GM in NS PREMIX 2 GM/100 ML BAG IVPB SCH ×3 (05:55→22:55)
[2023-04-05 06:56] LABS: INR 1.53 (0.88-1.18)
[2023-04-05] MEDS: Morphine 2 MG/ML SYRINGE IV PRN (08:02)
[2023-04-05] MEDS: Phenytoin 100 mg ER CAP PO SCH (08:06)
[2023-04-05] MEDS: Warfarin DAILY REMINDER **NOTE FOLLOW UP SCH (16:33)
[2023-04-06] MEDS: Morphine 2 MG/ML SYRINGE IV PRN ×2 (02:55→22:25)
[2023-04-06] MEDS: ceFAZolin 2 GM in NS PREMIX 2 GM/100 ML BAG IVPB SCH ×3 (05:37→22:25)
[2023-04-06 06:19] LABS: ABS Basophils 0.1 10^3/uL (0.0-0.1); ABS Eosinophils 0.2 10^3/uL (0.0-0.5); ABS Lymphocytes 2.4 10^3/uL (1.0-4.8); ABS Neutrophils 10.2 10^3/uL (1.5-7.6); ABS Nucleated RBC 0.01 10^3/ul; Eosinophil % 1.4 %; Hematocrit 28.5 % (38-53); Hemoglobin 9.7 g/dL (13.2-16.3); Lymphocyte % 17.4 %; Mean Corpuscular Hemoglobin 32.3 pg (27-33); Mean Corpuscular Hgb Conc 34.1 g/dL (31-36); Mean Corpuscular Volume 94.7 fL (80-97); Mean Platelet Volume 7.8 fL (7.5-11.2); Nucleated Red Blood Cells % 0.1 /100 WBC (0.0-0.4); Platelet Count 293 10^3/uL (150-450); Red Blood Count 3.01 10^6/uL (4.06-5.63); Red Cell Distribution Width 14.2 % (12-17); White Blood Count 13.9 10^3/uL (3.6-10.2)
[2023-04-06 06:27] LABS: INR 1.74 (0.88-1.18)
[2023-04-06 06:40] LABS: Calcium 8.6 mg/dL (8.6-10.3); Creatinine, Serum 0.95 mg/dL (0.67-1.17); Potassium 3.6 mmol/L (3.5-5.0); eGFR CKD-EPI 80.9 (>60)
[2023-04-06] MEDS: Phenytoin 100 mg ER CAP PO SCH (11:05)
[2023-04-06] MEDS ORDERED: Phytonadione Oral Solution 5 MG/25 ML UDC PO ONE (15:30)
[2023-04-07] MEDS: ceFAZolin 2 GM in NS PREMIX 2 GM/100 ML BAG IVPB SCH ×3 (05:16→21:36)
[2023-04-07 06:51] LABS: ABS Eosinophils 0.2 10^3/uL (0.0-0.5); ABS Lymphocytes 2.1 10^3/uL (1.0-4.8); ABS Neutrophils 11.2 10^3/uL (1.5-7.6); ABS Nucleated RBC 0.01 10^3/ul; Eosinophil % 1.3 %; Hematocrit 29.9 % (38-53); Hemoglobin 10.2 g/dL (13.2-16.3); Lymphocyte % 14.6 %; Mean Corpuscular Hemoglobin 31.7 pg (27-33); Mean Corpuscular Volume 93.4 fL (80-97); Mean Platelet Volume 6.9 fL (7.5-11.2); Nucleated Red Blood Cells % 0.1 /100 WBC (0.0-0.4); Platelet Count 318 10^3/uL (150-450); Red Blood Count 3.21 10^6/uL (4.06-5.63); Red Cell Distribution Width 14.5 % (12-17); White Blood Count 14.6 10^3/uL (3.6-10.2)
[2023-04-07 06:54] LABS: INR 1.46 (0.88-1.18)
[2023-04-07 07:05] LABS: Calcium 8.7 mg/dL (8.6-10.3); Creatinine, Serum 0.86 mg/dL (0.67-1.17); eGFR CKD-EPI 87.5 (>60)
[2023-04-07] MEDS ORDERED: Phytonadione Oral Solution 5 MG/25 ML UDC PO ONE (07:18)
[2023-04-07] MEDS: Phenytoin 100 mg ER CAP PO SCH (09:08)
[2023-04-07] MEDS ORDERED: Petroleum Jelly 1.75 Oz (small jar) TOPICAL PRN ×2 (09:31→09:53)
[2023-04-08] MEDS: ceFAZolin 2 GM in NS PREMIX 2 GM/100 ML BAG IVPB SCH ×3 (05:10→20:45)
[2023-04-08 07:56] LABS: ABS Eosinophils 0.1 10^3/uL (0.0-0.5); ABS Lymphocytes 1.9 10^3/uL (1.0-4.8); ABS Monocytes 0.9 10^3/uL (0.0-1.1); ABS Neutrophils 8.4 10^3/uL (1.5-7.6); ABS Nucleated RBC 0.01 10^3/ul; Eosinophil % 1.1 %; Hematocrit 28.9 % (38-53); Hemoglobin 9.9 g/dL (13.2-16.3); Lymphocyte % 16.5 %; Mean Corpuscular Hgb Conc 34.3 g/dL (31-36); Mean Corpuscular Volume 93.3 fL (80-97); Mean Platelet Volume 6.5 fL (7.5-11.2); Nucleated Red Blood Cells % 0.1 /100 WBC (0.0-0.4); Platelet Count 301 10^3/uL (150-450); Red Cell Distribution Width 14.3 % (12-17); White Blood Count 11.3 10^3/uL (3.6-10.2)
[2023-04-08 08:11] LABS: Calcium 8.6 mg/dL (8.6-10.3); Creatinine, Serum 0.84 mg/dL (0.67-1.17); INR 1.24 (0.88-1.18); Potassium 3.7 mmol/L (3.5-5.0); eGFR CKD-EPI 88.2 (>60)
[2023-04-08] MEDS: Phenytoin 100 mg ER CAP PO SCH (09:24)
[2023-04-09] MEDS: Acetaminophen IV 1 GM/100ML 1,000 MG/100 ML BAG IV PRN ×2 (04:05→10:20)
[2023-04-09] MEDS: ceFAZolin 2 GM in NS PREMIX 2 GM/100 ML BAG IVPB SCH ×3 (04:59→20:53)
[2023-04-09 06:25] LABS: ABS Eosinophils 0.1 10^3/uL (0.0-0.5); ABS Lymphocytes 2.1 10^3/uL (1.0-4.8); ABS Monocytes 0.7 10^3/uL (0.0-1.1); ABS Neutrophils 6.6 10^3/uL (1.5-7.6); Eosinophil % 1.4 %; Hemoglobin 9.8 g/dL (13.2-16.3); Lymphocyte % 21.9 %; Mean Corpuscular Hemoglobin 32.4 pg (27-33); Mean Corpuscular Hgb Conc 34.9 g/dL (31-36); Mean Corpuscular Volume 92.9 fL (80-97); Mean Platelet Volume 6.9 fL (7.5-11.2); Platelet Count 303 10^3/uL (150-450); Red Blood Count 3.02 10^6/uL (4.06-5.63); White Blood Count 9.6 10^3/uL (3.6-10.2)
[2023-04-09 06:44] LABS: C Reactive Protein 142.63 mg/L (<8.01); Calcium 8.6 mg/dL (8.6-10.3); Creatinine, Serum 0.79 mg/dL (0.67-1.17); Magnesium 1.9 mg/dL (1.9-2.7); Potassium 3.7 mmol/L (3.5-5.0); eGFR CKD-EPI 89.8 (>60)
[2023-04-09] MEDS ORDERED: ROPIVACAINE 5 MG/ML 30 ML BTL (0.5%) ONE (06:47)
[2023-04-09] MEDS ORDERED: Propofol 10 MG/ML 20 ML BTL ONE (06:53)
[2023-04-09] MEDS ORDERED: fentaNYL 100 mcg/2 ml 50 MCG/ML VIAL ONE ×2 (06:53→09:20)
[2023-04-09] MEDS ORDERED: Lidocaine 2% PF 5 ML VIAL ONE (06:53)
[2023-04-09] MEDS ORDERED: Rocuronium 50 mg VIAL 10 mg/ml 5 ml VIAL (50 mg) ONE ×3 (07:21→08:55)
[2023-04-09] MEDS ORDERED: Naloxone 0.4 mg VIAL 0.4 mg/ml 1 ml VIAL IV PRN (08:07)
[2023-04-09] MEDS ORDERED: fentaNYL 100 mcg/2 ml 50 MCG/ML VIAL IV PRN (08:07)
[2023-04-09] MEDS ORDERED: Ondansetron 4 mg VIAL 2 MG/ML 2 ml VIAL IV PRN (08:07)
[2023-04-09] MEDS ORDERED: Dexamethasone IV 4 MG/ML VIAL 1 ml VIAL ONE (08:17)
[2023-04-09] MEDS ORDERED: Ondansetron 4 mg VIAL 2 MG/ML 2 ml VIAL ONE (08:17)
[2023-04-09] MEDS ORDERED: Acetaminophen IV 1 GM/100ML 1,000 MG/100 ML BAG IV ONE (09:09)
[2023-04-09] MEDS ORDERED: Sugammadex 500 MG/5 ML 5 ml VIAL IV PUSH ONE (09:17)
[2023-04-09] MEDS ORDERED: HYDROmorphone 1 MG/1 ML SYRINGE ONE (10:17)
[2023-04-09] MEDS: HYDROmorphone 1 MG/1 ML SYRINGE IV PRN ×3 (10:18→10:32)
[2023-04-09] MEDS: Phenytoin 100 mg ER CAP PO SCH (12:26)
[2023-04-09] MEDS: Morphine 2 MG/ML SYRINGE IV PRN (23:37)
[2023-04-10] MEDS: Morphine 2 MG/ML SYRINGE IV PRN ×6 (01:37→19:30)
[2023-04-10] MEDS: ceFAZolin 2 GM in NS PREMIX 2 GM/100 ML BAG IVPB SCH ×3 (05:12→22:40)
[2023-04-10 06:04] LABS: ABS Eosinophils 0.1 10^3/uL (0.0-0.5); ABS Lymphocytes 1.8 10^3/uL (1.0-4.8); ABS Monocytes 0.8 10^3/uL (0.0-1.1); ABS Neutrophils 8.2 10^3/uL (1.5-7.6); ABS Nucleated RBC 0.01 10^3/ul; Eosinophil % 0.6 %; Hematocrit 26.6 % (38-53); Hemoglobin 9.4 g/dL (13.2-16.3); Lymphocyte % 16.6 %; Mean Corpuscular Hemoglobin 32.6 pg (27-33); Mean Corpuscular Hgb Conc 35.4 g/dL (31-36); Mean Corpuscular Volume 92.1 fL (80-97); Mean Platelet Volume 6.6 fL (7.5-11.2); Nucleated Red Blood Cells % 0.1 /100 WBC (0.0-0.4); Platelet Count 303 10^3/uL (150-450); Red Blood Count 2.89 10^6/uL (4.06-5.63); Red Cell Distribution Width 14.1 % (12-17); White Blood Count 10.9 10^3/uL (3.6-10.2)
[2023-04-10 06:22] LABS: Calcium 8.3 mg/dL (8.6-10.3); Creatinine, Serum 0.84 mg/dL (0.67-1.17); Potassium 3.9 mmol/L (3.5-5.0); eGFR CKD-EPI 88.2 (>60)
[2023-04-10] MEDS: Phenytoin 100 mg ER CAP PO SCH (08:35)
[2023-04-10] MEDS ORDERED: Warfarin per PHARMACY **NOTE FOLLOW UP SCH (16:00)
[2023-04-10 17:31] LABS: INR 1.24 (0.88-1.18)
[2023-04-11] MEDS: ceFAZolin 2 GM in NS PREMIX 2 GM/100 ML BAG IVPB SCH ×3 (05:42→20:49)
[2023-04-11 05:57] LABS: ABS Eosinophils 0.1 10^3/uL (0.0-0.5); ABS Lymphocytes 1.6 10^3/uL (1.0-4.8); ABS Monocytes 0.9 10^3/uL (0.0-1.1); ABS Neutrophils 7.2 10^3/uL (1.5-7.6); ABS Nucleated RBC 0.01 10^3/ul; Eosinophil % 0.7 %; Hematocrit 26.2 % (38-53); Hemoglobin 9.3 g/dL (13.2-16.3); Lymphocyte % 16.6 %; Mean Corpuscular Hemoglobin 32.7 pg (27-33); Mean Corpuscular Hgb Conc 35.3 g/dL (31-36); Mean Corpuscular Volume 92.5 fL (80-97); Mean Platelet Volume 6.8 fL (7.5-11.2); Nucleated Red Blood Cells % 0.1 /100 WBC (0.0-0.4); Platelet Count 280 10^3/uL (150-450); Red Blood Count 2.84 10^6/uL (4.06-5.63); Red Cell Distribution Width 14.1 % (12-17); White Blood Count 9.8 10^3/uL (3.6-10.2)
[2023-04-11 06:12] LABS: Calcium 8.3 mg/dL (8.6-10.3); Creatinine, Serum 0.81 mg/dL (0.67-1.17); Potassium 3.6 mmol/L (3.5-5.0); eGFR CKD-EPI 89.1 (>60)
[2023-04-11 06:47] LABS: Phenytoin 4.6 mcg/mL (10-20)
[2023-04-11] MEDS: Phenytoin 100 mg ER CAP PO SCH (08:46)
[2023-04-11] MEDS: Morphine 2 MG/ML SYRINGE IV PRN ×2 (08:47→20:48)
[2023-04-11] MEDS: Senna TAB 8.6 mg TAB PO PRN (20:24)
[2023-04-11] MEDS: Polyethylene Glycol 3350 17 GM PACKET PO PRN (20:48)
[2023-04-12] MEDS: ceFAZolin 2 GM in NS PREMIX 2 GM/100 ML BAG IVPB SCH ×2 (05:36→13:10)
[2023-04-12] MEDS: Morphine 2 MG/ML SYRINGE IV PRN ×2 (09:25→21:31)
[2023-04-12] MEDS: Phenytoin 100 mg ER CAP PO SCH (09:30)
[2023-04-12] MEDS: Polyethylene Glycol 3350 17 GM PACKET PO PRN (15:30)
[2023-04-12] MEDS: Senna TAB 8.6 mg TAB PO PRN (21:29)
[2023-04-13] MEDS: ceFAZolin 2 GM in NS PREMIX 2 GM/100 ML BAG IVPB SCH ×4 (00:20→23:53)
[2023-04-13] MEDS: Morphine 2 MG/ML SYRINGE IV PRN (01:29)
[2023-04-13 05:57] LABS: Hematocrit 25.6 % (38-53); Mean Corpuscular Hemoglobin 32.8 pg (27-33); Mean Corpuscular Hgb Conc 35.3 g/dL (31-36); Mean Corpuscular Volume 93.1 fL (80-97); Mean Platelet Volume 6.5 fL (7.5-11.2); Platelet Count 301 10^3/uL (150-450); Red Blood Count 2.75 10^6/uL (4.06-5.63); Red Cell Distribution Width 14.2 % (12-17); White Blood Count 8.4 10^3/uL (3.6-10.2)
[2023-04-13 06:15] LABS: Calcium 8.4 mg/dL (8.6-10.3); Creatinine, Serum 0.71 mg/dL (0.67-1.17); Potassium 3.8 mmol/L (3.5-5.0); eGFR CKD-EPI 92.7 (>60)
[2023-04-13] MEDS: Polyethylene Glycol 3350 17 GM PACKET PO PRN ×2 (09:05→21:24)
[2023-04-13] MEDS: Phenytoin 100 mg ER CAP PO SCH (09:06)
[2023-04-13] MEDS ORDERED: Warfarin per PHARMACY **NOTE FOLLOW UP SCH (19:00)
[2023-04-14] MEDS: Morphine 2 MG/ML SYRINGE IV PRN ×3 (00:39→16:14)
[2023-04-14 06:00] LABS: INR 1.26 (0.88-1.18)
[2023-04-14] MEDS: ceFAZolin 2 GM in NS PREMIX 2 GM/100 ML BAG IVPB SCH ×3 (09:25→23:55)
[2023-04-14] MEDS: Phenytoin 100 mg ER CAP PO SCH (09:26)
[2023-04-14] MEDS: Polyethylene Glycol 3350 17 GM PACKET PO PRN (12:43)
[2023-04-14] MEDS: Warfarin DAILY REMINDER **NOTE FOLLOW UP SCH (18:01)
[2023-04-14] MEDS: Nystatin TOP POWDER 15 GM BTL TOPICAL SCH ×2 (18:01→20:18)
[2023-04-14] MEDS: Senna TAB 8.6 mg TAB PO PRN (22:12)
[2023-04-15] MEDS: Morphine 2 MG/ML SYRINGE IV PRN ×2 (02:53→20:50)
[2023-04-15 05:28] LABS: INR 1.51 (0.88-1.18)
[2023-04-15] MEDS: Phenytoin 100 mg ER CAP PO SCH (08:39)
[2023-04-15] MEDS: ceFAZolin 2 GM in NS PREMIX 2 GM/100 ML BAG IVPB SCH ×2 (08:39→16:16)
[2023-04-15] MEDS: Polyethylene Glycol 3350 17 GM PACKET PO PRN ×2 (08:40→22:05)
[2023-04-15] MEDS: Nystatin TOP POWDER 15 GM BTL TOPICAL SCH ×2 (08:40→20:55)
[2023-04-15] MEDS: Warfarin DAILY REMINDER **NOTE FOLLOW UP SCH (16:43)
[2023-04-16] MEDS: ceFAZolin 2 GM in NS PREMIX 2 GM/100 ML BAG IVPB SCH ×2 (00:16→09:20)
[2023-04-16] MEDS: Morphine 2 MG/ML SYRINGE IV PRN (04:49)
[2023-04-16 07:45] LABS: INR 1.8 (0.88-1.18)
[2023-04-16 09:41] LABS: Rapid COVID-19 Molecular Undetected (Undetected)
[2023-04-16] MEDS: Nystatin TOP POWDER 15 GM BTL TOPICAL SCH (09:47)
[2023-04-16] MEDS: Phenytoin 100 mg ER CAP PO SCH (09:47)
[2023-04-16 10:02] VITALS: BP 103/60
== END 2023-04-16 12:00 | DRG 853 ==
LOC: ED 00:29 → SUATTDRO 15:36 → EDHOLD 15:36 → MED 17:21
PROVIDERS: ADMIT Internal Medicine; ATTEND Internal Medicine

== ENCOUNTER 2023-11-03 05:59 | Inpatient (IN) ==
[2023-11-03] MEDS: Lactated Ringers SEPSIS* BAG 2,050 ML IV ONE (07:46)
[2023-11-03 07:52] LABS: ABS Lymphocytes 1.3 10^3/uL (1.0-4.8); ABS Monocytes 1.5 10^3/uL (0.0-1.1); ABS Neutrophils 11.8 10^3/uL (1.5-7.6); Eosinophil % 0.1 %; Hematocrit 37.9 % (38-53); Hemoglobin 12.6 g/dL (13.2-16.3); Lymphocyte % 8.9 %; Mean Corpuscular Hemoglobin 31.6 pg (27-33); Mean Corpuscular Hgb Conc 33.3 g/dL (31-36); Mean Corpuscular Volume 94.9 fL (80-97); Mean Platelet Volume 6.9 fL (7.5-11.2); Platelet Count 285 10^3/uL (150-450); Red Blood Count 3.99 10^6/uL (4.06-5.63); Red Cell Distribution Width 14.6 % (12-17); White Blood Count 14.6 10^3/uL (3.6-10.2)
[2023-11-03 07:53] LABS: Urine Appearance Turbid; Urine Bilirubin Negative (Negative); Urine Blood 3+ (Negative); Urine Color Yellow; Urine Glucose Negative (Negative); Urine Ketones 1+ (Negative); Urine Nitrite Negative (Negative); Urine Protein 1+ (>=30 mg/dL) (Negative); Urine Specific Gravity 1.025 (1.002-1.030); Urine Urobilinogen Negative (Negative); Urine pH 5.5 (5.0-8.0)
[2023-11-03 08:02] LABS: INR 1.74 (0.83-1.13)
[2023-11-03] MEDS: cefTRIAXone 2 GM ADDV.VIAL 2 GM in NS 0.9% 100 ml BAG 100 ML IV ONE (08:14)
[2023-11-03 08:15] LABS: Digoxin 1.1 ng/ml (0.8-2.0)
[2023-11-03 08:18] LABS: ALT 47 U/L (7-52); Albumin 3.6 g/dL (3.2-5.2); Albumin/Globulin Ratio 1.1 (1-3); Alkaline Phosphatase 134 U/L (35-149); Blood Urea Nitrogen 28 mg/dL (6-24); C Reactive Protein 223.66 mg/L (<8.01); CO2 Carbon Dioxide 18 mmol/L (22-32); Calcium 8.6 mg/dL (8.6-10.3); Chloride 101 mmol/L (101-111); Creatinine, Serum 0.84 mg/dL (0.67-1.17); Globulin 3.2 g/dL (2-4); Glucose 94 mg/dL (70-100); Sodium 136 mmol/L (135-145); Total Bilirubin 0.8 mg/dL (0.2-1.0); Total Protein 6.8 g/dL (6.4-8.9); eGFR CKD-EPI 87.6 (>60)
[2023-11-03 08:24] LABS: Anion Gap 17 mmol/L (2-16)
[2023-11-03 08:46] LABS: Urine Bacteria 1+ /HPF (Absent); Urine Granular Casts Present /LPF (Absent); Urine Red Blood Cell 3+(>10/hpf) /HPF (0-Trace); Urine White Blood Cell 2+(11-20/hpf) /HPF (0-Trace)
[2023-11-03 09:43] LABS: High Sensitivity Troponin 1 Hr 22 pg/mL (<20)
[2023-11-03] MEDS: Iohexol 300 (CONTRAST) 10 ML SDV IV ONE (09:48)
[2023-11-03] MEDS ORDERED: Ondansetron 4 mg VIAL 2 MG/ML 2 ml VIAL IV PRN (11:08)
[2023-11-03] MEDS ORDERED: Polyethylene Glycol 3350 17 GM PACKET PO PRN (11:08)
[2023-11-03] MEDS ORDERED: Al Hydrox/Mg Hydrox/Simet LIQ 30 ML UDC PO PRN (11:08)
[2023-11-03] MEDS ORDERED: Magnesium Hydroxide LIQ 30 ML UDC PO PRN (11:08)
[2023-11-03 11:51] LABS: Magnesium 1.9 mg/dL (1.9-2.7); Phenytoin 6.1 mcg/mL (10-20)
[2023-11-03] MEDS: Phenytoin 100 mg ER CAP PO SCH (13:41)
[2023-11-03] MEDS: Aspirin EC 81 mg TAB.EC (enteric coated) PO SCH (13:42)
[2023-11-03] MEDS: Cholecalciferol (VIT D3) 1,000 unit TAB PO SCH (13:56)
[2023-11-03] MEDS ORDERED: Warfarin per PHARMACY **NOTE FOLLOW UP SCH (14:00)
[2023-11-03] MEDS: Warfarin DAILY REMINDER **NOTE FOLLOW UP SCH (17:58)
[2023-11-04 06:38] LABS: ABS Basophils 0.1 10^3/uL (0.0-0.1); ABS Eosinophils 0.1 10^3/uL (0.0-0.5); ABS Lymphocytes 1.3 10^3/uL (1.0-4.8); ABS Monocytes 1.1 10^3/uL (0.0-1.1); ABS Neutrophils 6.5 10^3/uL (1.5-7.6); Eosinophil % 0.6 %; Hematocrit 31.6 % (38-53); Hemoglobin 10.8 g/dL (13.2-16.3); Lymphocyte % 14.3 %; Mean Corpuscular Hemoglobin 32.3 pg (27-33); Mean Corpuscular Hgb Conc 34.2 g/dL (31-36); Mean Corpuscular Volume 94.4 fL (80-97); Platelet Count 233 10^3/uL (150-450); Red Blood Count 3.35 10^6/uL (4.06-5.63); Red Cell Distribution Width 14.3 % (12-17); White Blood Count 9.1 10^3/uL (3.6-10.2)
[2023-11-04 06:48] LABS: INR 1.83 (0.83-1.13)
[2023-11-04 06:56] LABS: Calcium 7.8 mg/dL (8.6-10.3); Creatinine, Serum 0.91 mg/dL (0.67-1.17); Potassium 3.5 mmol/L (3.5-5.0); eGFR CKD-EPI 84.7 (>60)
[2023-11-04] MEDS ORDERED: cefTRIAXone 2 gm/50 mL D5W 2 GM/50 ML BAG IV SCH (08:00)
[2023-11-04] MEDS: cefTRIAXone 2 gm/50 mL D5W 2 GM/50 ML BAG IV SCH (10:16)
[2023-11-04] MEDS: Nystatin TOP POWDER 15 GM BTL TOPICAL SCH (17:28)
[2023-11-05 06:58] LABS: ABS Eosinophils 0.1 10^3/uL (0.0-0.5); ABS Lymphocytes 1.2 10^3/uL (1.0-4.8); ABS Neutrophils 5.3 10^3/uL (1.5-7.6); Hematocrit 30.4 % (38-53); Hemoglobin 10.4 g/dL (13.2-16.3); Lymphocyte % 15.7 %; Mean Corpuscular Hemoglobin 31.8 pg (27-33); Mean Corpuscular Hgb Conc 34.1 g/dL (31-36); Mean Corpuscular Volume 93.2 fL (80-97); Mean Platelet Volume 6.8 fL (7.5-11.2); Platelet Count 234 10^3/uL (150-450); Red Blood Count 3.26 10^6/uL (4.06-5.63); Red Cell Distribution Width 14.3 % (12-17); White Blood Count 7.6 10^3/uL (3.6-10.2)
[2023-11-05 07:02] LABS: INR 1.92 (0.83-1.13)
[2023-11-05 07:12] LABS: Calcium 7.5 mg/dL (8.6-10.3); Creatinine, Serum 0.84 mg/dL (0.67-1.17); Potassium 3.4 mmol/L (3.5-5.0); eGFR CKD-EPI 87.6 (>60)
[2023-11-05 07:41] LABS: Magnesium 1.9 mg/dL (1.9-2.7)
[2023-11-05] MEDS: Potassium Chloride LIQUID 20 MEQ/15 ML LIQUID PO ONE (08:33)
[2023-11-05 11:23] LABS: C Reactive Protein 220.28 mg/L (<8.01)
[2023-11-05] MEDS ORDERED: ceFAZolin 2 GM in NS PREMIX 2 GM/100 ML BAG IVPB SCH (14:00)
[2023-11-05] MEDS: ceFAZolin 2 GM PREMIX 2 GM/50 ML BAG IV SCH (15:05)
[2023-11-06 05:32] LABS: INR 1.72 (0.83-1.13)
[2023-11-06 05:50] LABS: ABS Eosinophils 0.1 10^3/uL (0.0-0.5); ABS Lymphocytes 1.4 10^3/uL (1.0-4.8); ABS Monocytes 0.8 10^3/uL (0.0-1.1); Eosinophil % 1.2 %; Hematocrit 32.7 % (38-53); Hemoglobin 11.3 g/dL (13.2-16.3); Lymphocyte % 18.9 %; Mean Corpuscular Hemoglobin 32.2 pg (27-33); Mean Corpuscular Hgb Conc 34.4 g/dL (31-36); Mean Corpuscular Volume 93.6 fL (80-97); Mean Platelet Volume 6.7 fL (7.5-11.2); Nucleated Red Blood Cells % 0.1 %/100WBC (0.0-0.8); Platelet Count 257 10^3/uL (150-450); Red Cell Distribution Width 14.2 % (12-17); White Blood Count 7.3 10^3/uL (3.6-10.2)
[2023-11-06 06:06] LABS: Calcium 7.8 mg/dL (8.6-10.3); Creatinine, Serum 0.9 mg/dL (0.67-1.17); Magnesium 1.9 mg/dL (1.9-2.7); Potassium 3.4 mmol/L (3.5-5.0); eGFR CKD-EPI 85.8 (>60)
[2023-11-06] MEDS: Potassium Chlor 20 meq TAB.ER PO ONE (09:38)
[2023-11-06] MEDS ORDERED: Naloxone 0.4 mg VIAL 0.4 mg/ml 1 ml VIAL ONE (15:31)
[2023-11-06] MEDS ORDERED: Midazolam 5 mg/5 ml VIAL 1 mg/ml 5 ml VIAL (5 mg) ONE (15:31)
[2023-11-06] MEDS ORDERED: fentaNYL 100 mcg/2 ml 50 MCG/ML VIAL ONE (15:31)
[2023-11-06] MEDS ORDERED: Flumazenil 0.5 mg/5 ml 0.1 MG/ML 5 ml VIAL ONE (15:31)
[2023-11-06] MEDS ORDERED: Naloxone 0.4 mg VIAL 0.4 mg/ml 1 ml VIAL IV PUSH PRN (16:03)
[2023-11-06] MEDS ORDERED: Flumazenil 0.5 mg/5 ml 0.1 MG/ML 5 ml VIAL IV PRN (16:03)
[2023-11-06] MEDS: NS 0.9% 1000 ml BAG 1,000 ML IV ONE (21:14)
[2023-11-06] MEDS: fentaNYL 100 mcg/2 ml 50 MCG/ML VIAL IV SLOW PU ONE (21:14)
[2023-11-07 07:40] LABS: INR 2.2 (0.83-1.13)
[2023-11-08 09:41] LABS: ABS Basophils 0.1 10^3/uL (0.0-0.1); ABS Eosinophils 0.2 10^3/uL (0.0-0.5); ABS Lymphocytes 1.8 10^3/uL (1.0-4.8); ABS Monocytes 0.9 10^3/uL (0.0-1.1); ABS Neutrophils 6.6 10^3/uL (1.5-7.6); Eosinophil % 1.6 %; Hematocrit 33.9 % (38-53); Hemoglobin 11.5 g/dL (13.2-16.3); Lymphocyte % 18.6 %; Mean Platelet Volume 6.4 fL (7.5-11.2); Platelet Count 291 10^3/uL (150-450); Red Blood Count 3.61 10^6/uL (4.06-5.63); Red Cell Distribution Width 14.1 % (12-17); White Blood Count 9.5 10^3/uL (3.6-10.2)
[2023-11-08 09:47] LABS: INR 1.86 (0.83-1.13)
[2023-11-08 10:29] LABS: Calcium 8.3 mg/dL (8.6-10.3); Creatinine, Serum 0.86 mg/dL (0.67-1.17); Potassium 3.6 mmol/L (3.5-5.0)
[2023-11-09 06:52] LABS: INR 1.67 (0.83-1.13)
[2023-11-09] MEDS: Polyethylene Glycol 3350 17 GM PACKET PO SCH (09:30)
[2023-11-09 10:53] LABS: C Reactive Protein 156.26 mg/L (<8.01)
[2023-11-09] MEDS: Iohexol 350 (CONTRAST) 500 ML MDV IV ONE (19:16)
[2023-11-09] MEDS: Senna TAB 8.6 mg TAB PO PRN (21:14)
[2023-11-10 09:50] LABS: ABS Eosinophils 0.2 10^3/uL (0.0-0.5); ABS Lymphocytes 1.3 10^3/uL (1.0-4.8); ABS Monocytes 0.6 10^3/uL (0.0-1.1); ABS Nucleated RBC 0.01 10^3/ul; Eosinophil % 2.1 %; Hematocrit 32.7 % (38-53); Hemoglobin 11.3 g/dL (13.2-16.3); Lymphocyte % 16.6 %; Mean Corpuscular Hemoglobin 32.6 pg (27-33); Mean Corpuscular Hgb Conc 34.6 g/dL (31-36); Mean Corpuscular Volume 94.3 fL (80-97); Mean Platelet Volume 6.9 fL (7.5-11.2); Nucleated Red Blood Cells % 0.1 %/100WBC (0.0-0.8); Platelet Count 275 10^3/uL (150-450); Red Blood Count 3.46 10^6/uL (4.06-5.63); Red Cell Distribution Width 14.2 % (12-17); White Blood Count 8.1 10^3/uL (3.6-10.2)
[2023-11-10 09:58] LABS: INR 1.71 (0.83-1.13)
[2023-11-10 10:15] LABS: Calcium 8.1 mg/dL (8.6-10.3); Creatinine, Serum 0.88 mg/dL (0.67-1.17); Potassium 3.5 mmol/L (3.5-5.0); eGFR CKD-EPI 86.4 (>60)
[2023-11-11 09:56] LABS: INR 1.63 (0.83-1.13)
[2023-11-12 09:50] LABS: INR 1.69 (0.83-1.13)
[2023-11-12] MEDS: DALVANCE 1500 MG IV ONCE (for CrCl >/= 30 or regular HD) IVPB ONE (12:29)
[2023-11-12] MEDS: DALBAVANCIN HCL (NF) 500 MG/25 ML VIAL IVPB ONE (12:48)
[2023-11-12 14:41] VITALS: BP 109/68
[2023-11-12 14:47] LABS: Rapid COVID-19 Molecular Undetected (Undetected)
== END 2023-11-12 15:15 | DRG 872 ==
LOC: ED 05:59 → EDHOLD 11:09 → SUATTDRO 11:09 → MED 13:43
PROVIDERS: ADMIT Internal Medicine; ATTEND Student in an Organized Health Care Education/Training Program